=== PATIENT | female | born 1995 | race Caucasian/White ===

== ENCOUNTER → 2019-11-12 09:16 | Outpatient (CLI) | payer OTHER, SELFPAY ==
[2019-11-12 08:22] VITALS: BMI 45.6
[2019-11-12 10:50] LABS: HIV - WCH Non-Reactive (Nonreactive); Hepatitis C Antibody Non-Reactive (Nonreactive)
[2019-11-13 02:16] LABS: Rapid Plasmin Reagin (RPR) NONREACTIVE (NONREACTIVE)
[2019-11-15 03:07] LABS: Chlamydia By Nucleic Acid AMP Negative (Negative)
[2019-11-15 07:33] LABS: Gonococcus By Nucleic Acid AMP Negative (Negative)
[2019-11-17 14:00] LABS: HPV Reflexed? NOT INDICATED
== END ==
PROVIDERS: Referring Provider Obstetrics & Gynecology; Visit Provider Obstetrics & Gynecology
DX: Z12.4 Encounter for screening for malignant neoplasm of cervix (principal); Z11.3 Encounter for screening for infections with a predominantly sexual mode of transmission
CPT/HCPCS: 36415; 86592; 86703; 86803; 87491; 87591; 88175; G0145

== ENCOUNTER → 2023-09-11 | Outpatient (CLI) | payer BC, SELFPAY ==
[2023-09-13 20:09] LABS: Chlamydia By Nucleic Acid AMP Negative (Negative); Gonococcus By Nucleic Acid AMP Negative (Negative)
== END | disposition home or self-care (01) ==
LOC: LABSPEC 15:36
PROVIDERS: Referring Provider Advanced Practice Midwife; Visit Provider Advanced Practice Midwife
DX: O99.210 Obesity complicating pregnancy, unspecified trimester (principal); E66.01 Morbid (severe) obesity due to excess calories; Z68.42 Body mass index [BMI] 45.0-49.9, adult; Z3A.00 Weeks of gestation of pregnancy not specified
CPT/HCPCS: 87086; 87088; 87491; 87591

== ENCOUNTER → 2023-10-15 | Outpatient (CLI) | payer BC, SELFPAY ==
[2023-10-15 08:28] LABS: Absolute Lymphocyte Count 1.91 X10^3/uL (0.83-4.51); Basophil# 0.03 X10^3/uL; Basophil% 0.3 % (0-1); Eosinophil# 0.11 X10^3/uL; Eosinophils% 1.1 % (0-5); Hematocrit 38.5 % (37-47); Hemoglobin 12.4 g/dL (12.0-15.0); Lymphocyte # 1.91 X10^3/ul (0.83-4.51); Lymphocyte % 19.8 % (19-41); Mean Corp Hgb Conc 32.2 g/dL (32-36); Mean Corpuscular Hgb 27.7 pg (27.0-32.0); Mean Corpuscular Volume 86.1 fL (81-99); Mean Platelet Vol. 10.2 fl (6.2-12.0); Monocyte# 0.57 X10^3/uL; Monocyte% 5.9 % (0-10); NRBC Flagged by Analyzer 0 % (0-5); Neutrophil # 6.97 X10^3/uL (2.7-7.7); Neutrophil % 72.4 % (47-70); Platelet Count 260 K/mm3 (150-450); RBC Distribution Width CV 13.7 % (11.6-14.6); RBC Distribution Width SD 42.7 fl (35.1-43.9); Red Blood Count 4.47 M/mm3 (4.2-5.4); White Blood Count 9.6 K/mm3 (4.4-11.0)
[2023-10-15 09:16] LABS: Hemoglobin A1c 4.9 % (3.8-5.6)
[2023-10-15 09:48] LABS: HIV - WCH Non-Reactive (Nonreactive); Hepatitis B Surface Antigen Non-Reactive (Nonreactive); Hepatitis C Antibody Non-Reactive (Nonreactive); Rubella IgG Reactive (Nonreactive); Syphilis Antibodies Non-reactive
== END | disposition home or self-care (01) ==
PROVIDERS: Advanced Practice Midwife; Referring Provider Obstetrics & Gynecology; Visit Provider Obstetrics & Gynecology
DX: O99.210 Obesity complicating pregnancy, unspecified trimester (principal); Z31.430 Encounter of female for testing for genetic disease carrier status for procreative management; Z3A.00 Weeks of gestation of pregnancy not specified
CPT/HCPCS: 36415; 83036; 85025; 86703; 86762; 86780; 86803; 86850; 86900; 86901; 87340

== ENCOUNTER 2023-11-28 22:05 | Emergency (ER) | payer BC, SELFPAY ==
[2023-11-28 22:06] VITALS: BP 129/75; PULSE 100; RESP 18; TEMP 36.4; O2SAT 96
--- NOTE | 2023-11-28 22:13 | ED.RN ---
PT TOLD THIS RN SHE WAS TO GO TO OB FOR EVALUATION. RN CALLED OB CHARGE, WAS TOLD SHE NEEDED TO BE SEEN HERE FOR CP. PT HAVING UNRELIEVED HAs @ HOME, NOTIFIED DR. GARCIA
--- NOTE | 2023-11-28 22:41 | EX.ED.DYSGE1 ---
HPI History of Present Illness Chief Complaint: Chest Pain Narrative Narrative: 28-year-old female, G2, P0 at almost 21 weeks gestation, patient of Dr. Freida Becker, presents with bilateral flank pain that she has had all day today. She states that while she has had migraines, those of improved after wearing her hair down. She has had headache all day, and pain in her bilateral sides that have been bothering her all day. She denies any vaginal bleeding or pelvic pain or cramping. She has not taking anything for analgesia because she states she lost the safe medication list when she moved 2 weeks ago. She presents to the emergency department wanting to be checked out and to make sure that everything is okay. She states that her first was a chemical , and this is the first is that she has been along in her . No exacerbating or alleviating factors. No new leg swelling or other symptoms. [facility] Medical History Pre-conception counseling Encounter for Nexplanon removal Seasonal allergies Anxiety Home Medications ?Medication ?Instructions ?Recorded ?Last Taken ?Type PNV 178-FA 180 mcg-om3 35 mg-dha 1 tab PO DAILY 09/07/23 Unknown History 25 mg-epa 5 mg-fish oil chew tablet pyridoxine (vitamin B6) 25 mg 25 mg PO DAILY 09/07/23 Unknown History tablet Allergy/AdvReac Type Severity Reaction Status Date / Time coconut Allergy Severe Hives Verified 11/28/23 22:06 Family History Grandfather Heart disease Depression Lung cancer Diabetes Paternal Father Diabetes Heart disease Depression Grandmother Breast cancer Diabetes Paternal Mother Heart palpitations Surgical History History of tonsillectomy Social History adopted: No household members: spouse current occupational status: employed current occupation: [employer] pets and animals: Yes (Avoid litterbox) pets and animals: cat(s) history of recent travel: Yes ([place]) out of state: Yes out of country: No sexually active: Yes Smoking Status: Former smoker quit date: 10/20/20 Smokeless tobacco user: other alcohol intake: current alcohol intake frequency: holidays/special occasions only details: not while substance use type: does not use well-balanced diet: rarely or never caffeine: No eating out: 1-3 times/week during the past year weight has: remained stable what type of physical activity do you participate in: walking frequency: 1-2 times per week duration: 45-60 minutes/day darien/voodoo: Quaker seatbelt use: always do you feel safe at home: Yes additional social history: [employer]- [employer] of [employer] ROS ROS ED ROS Narrative Constitutional: No fever, no chills. HEENT: No sore throat. No neck pain. No loss of vision. No rhinorrhea. Cardiovascular: No chest pain. No palpitations. No pedal edema. Respiratory: No cough, no shortness of breath. Abdominal: No abdominal pain. No nausea. No vomiting. Bilateral flank pain. Genitourinary: No dysuria. No hematuria. No vaginal bleeding, no pelvic pain or pressure. Musculoskeletal: No myalgias. No arthralgias. Neurologic: Positive headaches. No dizziness. No lightheadedness. Skin: No rash. No change in color. Psychiatric: No depression. No anxiety. EXAM Physical Exam Narrative Exam Narrative: Afebrile. Vital signs noted. Nontoxic-appearing. PERRL, EOMI. Regular rate and rhythm. Lungs are clear to auscultation bilaterally. Abdomen soft nontender with normal active bowel sounds. No CVA tenderness to percussion bilaterally. Neurological examination nonfocal and nonlateralizing. No pitting edema bilaterally. Const Vital Signs: 11/28/23 22:06 11/28/23 23:05 11/29/23 00:00 Temperature 97.6 F L 98.2 F Temperature Source Temporal Pulse Rate 100 71 77 Respiratory Rate 18 16 16 Blood Pressure 129/75 H 120/66 124/64 H Blood Pressure Mean 93 84 84 Pulse Ox 96 98 98 Oxygen Delivery Method Room Air MDM MDM MDM Narrative Medical decision making narrative: Differential diagnosis includes but not limited to preeclampsia versus eclampsia versus migraine headache versus ureterolithiasis versus round ligament pain. I have low suspicion for threatened miscarriage as she is not having any vaginal bleeding or pelvic pressure. I do not feel she requires formal ultrasound. heart rate will be obtained. I will check her laboratory work to look for dehydration or electrolyte imbalance. Urinalysis will be obtained to check for microscopic blood and/or protein. She has a normal blood pressure of 129/75 here in the emergency department. There may be some anxiety component in relation to this as well. She was given Tylenol for analgesia. Although the nurse documented chest pain, she is not having chest pain, it is more bilateral flank pain. EKG was obtained and interpreted by myself independently as normal sinus rhythm at 91 bpm without ectopy or acute ST changes. No STEMI. I reviewed her laboratory work and she has slightly elevated white count of 11.4 which I think is nonspecific, hemoglobin of 11.4, platelet count normal at 249. CMP is grossly unremarkable. Urinalysis obtained and reviewed and is negative for infection, negative protein. Her blood pressure has normalized to 120 systolic. I doubt eclampsia/preeclampsia. I do not feel CT of the brain is indicated. heart rate obtained by RN and was reported to be 156 bpm. I do not feel she requires a formal ultrasound. Upon repeat examination at approximately midnight, she is feeling improved. Think she probably has more musculoskeletal flank pain as it is bilateral. I discussed patient with her TOOL AND EQUIPMENT RENTAL CLERK, Dr. Freida Becker, and it was not felt that she requires transfer to labor and delivery for further monitoring as she is not having any symptoms of premature contractions. She will continue [id number] Tylenol as needed for pain and follow-up with her TOOL AND EQUIPMENT RENTAL CLERK as an outpatient. Return instructions to the emergency department were reviewed. Disposition is discharged home in stable condition. History & Record Review Discussion w/independent historian: Patient Additional record(s) reviewed:: Prior labs Lab Data Attestation: I reviewed the patient's lab results. Labs: Laboratory Results - last 24 hr 11/28/23 11/28/23 22:44 23:28 WBC 11.4 H RBC 4.14 L Hgb 11.4 L Hct 35.5 L MCV 85.7 MCH 27.5 MCHC 32.1 RDW Std Deviation 43.2 RDW Coeff of Wilbur 13.9 Plt Count 249 MPV 10.6 Immature Gran % (Auto) 0.400 Neut % (Auto) 72.7 H Lymph % (Auto) 19.6 [place] % (Auto) 5.5 Eos % (Auto) 1.4 Baso % (Auto) 0.4 Absolute Neuts (auto) 8.3 H Absolute Lymphs (auto) 2.23 Nucleated RBC % 0 Sodium 136 Potassium 3.6 Chloride 106 Carbon Dioxide 25.0 Anion Gap 5 BUN 10 Creatinine 0.58 Est GFR (MDRD) Af Amer 157 Est GFR (MDRD) Non-Af 130 BUN/Creatinine Ratio 17.2 Glucose 99 Calcium 9.1 Total Bilirubin 0.30 AST 20 ALT 45 Alkaline Phosphatase 78 Total Protein 6.8 Albumin 3.0 L Globulin 3.8 Albumin/Globulin Ratio 0.8 L Urine Color Yellow Urine Clarity Clear Urine pH 6.0 [address] [place] 1.020 Urine Protein Negative Urine Glucose (UA) Normal Urine Ketones 5 H Urine Occult Blood Negative Urine Nitrite Negative Urine Bilirubin Negative Urine Urobilinogen Normal Ur Leukocyte Esterase 100 H Urine RBC 0 SEEN Urine WBC 0-5 SEEN Ur Squamous Epith Cells 10-25 SEEN Ur Transition Epith Cell 0-5 SEEN Amorphous Sediment 1+ Urine Bacteria 1+ Urine Mucus 0 SEEN Management Discussion w/another healthcare provider: Mold Worker (Dr. Freida Becker, TOOL AND EQUIPMENT RENTAL CLERK) Discharge Plan Triage Chief Complaint: Chest Pain ED Provider: Jack Zelaya Dx/Rx/DC Orders Clinical Impression: , Acute flank pain, Headache Instructions: ED Flank Pain, Uncertain Cause, ED Prescriptions: No Action PNV no.[id number] 180 mcg-35 mg- 25 mg-5 mg tablet,chewable 1 tab PO DAILY pyridoxine (vitamin B6) 25 mg tablet 25 mg PO DAILY Primary Care Provider: Care Physician,No Primary Referrals: Freida Becker MD [Med Staff - Active Staff] - 3-5 Days if not improving Care Physician,No Primary [Primary Care Provider] - Activity Restrictions/Additional Instructions: Continue Tylenol 650 mg orally every 6 hours by mouth for pain. Dose not to exceed 3000 mg in a 24-hour period. Return with vaginal bleeding, pelvic pressure or pain, new or worsening symptoms. Follow-up with your TOOL AND EQUIPMENT RENTAL CLERK within the next 3 to 5 days. Print Language: Singaporean Disposition Disposition: Home, Self Care
[2023-11-28] MEDS: 0.9% Normal Saline (1000mL) 1,000 ML 999 ML IV (22:51)
[2023-11-28 22:52] LABS: Absolute Lymphocyte Count 2.23 X10^3/uL (0.83-4.51); Absolute Neutrophil Count 8.3 X10^3/uL (2.0-7.7); Basophil# 0.04 X10^3/uL; Basophil% 0.4 % (0-1); Eosinophil# 0.16 X10^3/uL; Eosinophils% 1.4 % (0-5); Hematocrit 35.5 % (37-47); Hemoglobin 11.4 g/dL (12.0-15.0); Lymphocyte # 2.23 X10^3/ul (0.83-4.51); Lymphocyte % 19.6 % (19-41); Mean Corp Hgb Conc 32.1 g/dL (32-36); Mean Corpuscular Hgb 27.5 pg (27.0-32.0); Mean Corpuscular Volume 85.7 fL (81-99); Mean Platelet Vol. 10.6 fl (6.2-12.0); Monocyte# 0.63 X10^3/uL; Monocyte% 5.5 % (0-10); NRBC Flagged by Analyzer 0 % (0-5); Neutrophil # 8.29 X10^3/uL (2.7-7.7); Neutrophil % 72.7 % (47-70); Platelet Count 249 K/mm3 (150-450); RBC Distribution Width CV 13.9 % (11.6-14.6); RBC Distribution Width SD 43.2 fl (35.1-43.9); Red Blood Count 4.14 M/mm3 (4.2-5.4); White Blood Count 11.4 K/mm3 (4.4-11.0)
[2023-11-28] MEDS: Acetaminophen 325 MG Tablet 650 MG PO (22:52)
[2023-11-28 23:05] VITALS: BP 120/66; PULSE 71; RESP 16; O2SAT 98
[2023-11-28 23:08] LABS: ALB/GLOB Ratio 0.8 RATIO (0.9-2.4); AST(SGOT) 20 U/L (15-37); Alanine Aminotransfer ALT/SGPT 45 U/L (13-56); Alkaline Phosphatase 78 U/L (45-117); Anion Gap 5 (5-15); BUN 10 mg/dL (7-18); BUN/Creat Ratio 17.2 RATIO (10-20); Calcium,Total 9.1 mg/dL (8.5-10.1); Chloride 106 mmol/L (98-107); Creatinine, Serum 0.58 mg/dL (0.55-1.02); EST Glomerular Filtration Rate 130 mL/min (>60); Est Glom Filt Rate - Afr Amer 157 mL/min (>60); Globulin 3.8 g/dL (2.2-4.2); Glucose 99 mg/dL (74-106); Potassium 3.6 mmol/L (3.5-5.1); Protein, Total 6.8 g/dL (6.4-8.2); Sodium Level 136 mmol/L (136-145)
--- NOTE | 2023-11-28 23:09 | EKG12_ITS ---
Test Reason : CP Blood Pressure : / mmHG Vent. Rate : 091 BPM Atrial Rate : 091 BPM P-R Int : 154 ms QRS Dur : 092 ms QT Int : 380 ms P-R-T Axes : 039 036 022 degrees QTc Int : 467 ms Normal sinus rhythm Normal ECG Confirmed by ELIZABETH GARZA, NIDIA ([id number]), health editor SAUL GAN ([id number]) on 11/29/2023 1:53:53 PM Referred By: Confirmed By:NIDIA JOHNSON MD
[2023-11-28 23:37] LABS: Mucous, Urine 0 SEEN /hpf (<or=2+); Red Blood Cells-Urine 0 SEEN /hpf (0-5)
[2023-11-28 23:40] LABS: Color, Urine Yellow (Yellow); Glucose, Dipstick Normal (Normal); Ketone-Dipstick 5 mg/dl (Negative); Leukocyte Esterase-Dipstick 100 /ul (Negative); Nitrite-Dipstick Negative (Negative); Occult Blood-Urine Negative /ul (Negative); Protein-Dipstick Negative (Negative); Urine Bilirubin Dipstick Negative (Negative); Urine Clarity Clear (Clear); Urine Urobilinogen Normal (Normal)
[2023-11-28 23:52] LABS: Bacteria 1+ /hpf (None Seen); Squamous Epithelial Cells - UA 10-25 SEEN /hpf (5-10); Transitional Epithelial - Ur 0-5 SEEN /hpf (0-5); White Blood Cells 0-5 SEEN /hpf (0-5)
[2023-11-28 23:53] LABS: Amorphous Sediment 1+
[2023-11-29] VITALS: BP 124/64; PULSE 77; RESP 16; TEMP 36.8; O2SAT 98
== END 2023-11-29 00:15 | disposition home or self-care (01) ==
PROVIDERS: Emergency Provider Emergency Medicine; Visit Provider Emergency Medicine
DX: O26.892 Other specified pregnancy related conditions, second trimester (principal); R51.9 Headache, unspecified; R10.9 Unspecified abdominal pain; O99.332 Smoking (tobacco) complicating pregnancy, second trimester; O99.891 Other specified diseases and conditions complicating pregnancy; Z3A.20 20 weeks gestation of pregnancy; F17.200 Nicotine dependence, unspecified, uncomplicated
CPT/HCPCS: 80053; 81001; 85025; 93005; 96360; 99283

== ENCOUNTER → 2024-01-18 | Outpatient (CLI) | payer BC, SELFPAY ==
--- OUTSIDE RECORDS SUMMARY | 2024-01-18 13:56 | XMS RPT_ITS | CCD ---
Author Organization [facility] Care Team Providers Care Administrative Dietitian Name Role Phone ALEXIS MCKNIGHT Referring Unavailab le ABDULLAHI PRIMARY CAREMD Primary Care Unavailable AMAYA GALE Attending Unavailable ALEXIS MCKNIGHT Referring Unavailab LIAN Cannon Attending Unavailable NO PRIMARY CARE, Primary Care Unavailable ALEXIS MCKNIGHT Referring Unavailab ALEXIA Whitney Attending Unavailable NO PRIMARY CAREMD Primary Care Unavailable Encounters Encounter Date Encounter Type Care Provider Facility Start: 01-08-2024 End: 01-08-2024 ambulatory ALEXIS MCKNIGHT [facility] Start: 12-11-2023 End: 12-11-2023 ambulatory ALEXIS MCKNIGHT [facility] Start: 11-20-2023 End: 11-20-2023 ambulatory ALEXIS [facility] Payers Date Payer Category Payer Unknown [id number] [id number] 1993 Unknown [id number] [id number]. [id number] 1993 Unknown [id number] [id number]. [id number] Unknown [id number] Summary Purpose Family History No Family History Records Found Advance Directives No Advanced Directives Records Found Additional Source Comments INFORMATION SOURCE (unrecogn ized section and content) DATE CREATED AUTHOR 01/10/2024 [facility] FOR RECORDS PERTAINING TO PATIENTS WHO ARE OR HAVE BEEN ENROLLED IN A CHEMICAL DEPENDENCY/SUBSTANCEABUSE PROGRAM, SOME INFORMATION MAY BE OMITTED. This clinical summary was aggregated from multiple sources. Caution should be exercised in using it in the provision of clinical care. This summary normalizes information from multiple sources, and as a consequence, information in this document may materially change the coding, format and clinical context of patient data. In addition, data may be omitted in some cases. CLINICAL DECISIONS SHOULD BE BASED ON THE PRIMARY CLINICAL RECORDS. [facility] [employer] [facility]. provides no warranty or guarantee of the accuracy or completeness of information in this document.
[2024-01-18 15:09] LABS: Absolute Lymphocyte Count 1.76 X10^3/uL (0.83-4.51); Absolute Neutrophil Count 8.3 X10^3/uL (2.0-7.7); Basophil# 0.05 X10^3/uL; Basophil% 0.5 % (0-1); Eosinophil# 0.05 X10^3/uL; Eosinophils% 0.5 % (0-5); Hematocrit 36.2 % (37-47); Hemoglobin 11.8 g/dL (12.0-15.0); Lymphocyte # 1.76 X10^3/ul (0.83-4.51); Lymphocyte % 16.1 % (19-41); Mean Corp Hgb Conc 32.6 g/dL (32-36); Mean Corpuscular Hgb 28.6 pg (27.0-32.0); Mean Corpuscular Volume 87.7 fL (81-99); Mean Platelet Vol. 11.2 fl (6.2-12.0); Monocyte# 0.66 X10^3/uL; NRBC Flagged by Analyzer 0 % (0-5); Neutrophil % 75.9 % (47-70); Platelet Count 279 K/mm3 (150-450); RBC Distribution Width CV 14.1 % (11.6-14.6); RBC Distribution Width SD 44.7 fl (35.1-43.9); Red Blood Count 4.13 M/mm3 (4.2-5.4); White Blood Count 10.9 K/mm3 (4.4-11.0)
[2024-01-18 15:27] LABS: Glucose Challenge Gest 1H 50g 97 mg/dL (70-140)
[2024-01-18 15:47] LABS: HIV - WCH Non-Reactive (Nonreactive); Syphilis Antibodies Non-reactive
== END | disposition home or self-care (01) ==
LOC: WOBLAB 13:27
PROVIDERS: Referring Provider Obstetrics & Gynecology; Visit Provider Obstetrics & Gynecology
DX: Z13.1 Encounter for screening for diabetes mellitus (principal)
CPT/HCPCS: 36415; 82950; 85025; 86703; 86780

== ENCOUNTER → 2024-02-15 | Outpatient (CLI) | payer BC, SELFPAY ==
--- NOTE | 2024-02-15 13:07 | US_ITS ---
EXAM: US SECOND OR THIRD TRIMESTER , TRANSABDOMINAL CLINICAL INDICATION: growth -- 32 weeks TECHNIQUE: Transabdominal obstetrical ultrasound of the maternal pelvis and a second or third trimester with image documentation. COMPARISON: No relevant prior studies available. FINDINGS: FETUS: There is an intrauterine gestation. HEART RATE: heart rate is 162 bpm. PRESENTATION: The fetus is in a cephalic position. PLACENTA: The placenta is posterior. No placenta previa. No abruption. AMNIOTIC FLUID: BRYANT is 19.1 cm. ANATOMY: Intracranial/face anatomy not seen. Spinal anatomy not seen. Abdominal anatomy not seen. Extremities not seen. Four-chamber heart not seen. Umbilical cord not seen. BIOMETRICS GESTATIONAL AGE: Gestational age 32 weeks 0 days. LING: LING 04/11/2024. EFW: Estimated weight 2033 g, 62nd percentile. BPD: Biparietal diameter 8.2 cm age 33 weeks 0 days, 73rd percentile. HC: Head circumference 30.7 cm age 34 weeks 1 day, 72nd percentile. AC: Abdominal circumference 28.7 cm age 32 weeks 5 days, 71st percentile. FL: Femur length 6.2 cm age 32 weeks 1 day, 39th percentile. MATERNAL: UTERUS: Unremarkable. No myometrial mass. CERVIX: Unremarkable as visualized. The cervix is closed. ADNEXA: Unremarkable. No adnexal masses. FREE FLUID: None. US/OB Limited With Biometrics IMPRESSION: Intrauterine gestation with an average ultrasound age is 33 weeks 3 days and ultrasound estimated due date of 04/01/2024. heart rate is 162 bpm. Electronically Signed: Lino Mario MD at 0:05 EST ,
== END | disposition home or self-care (01) ==
LOC: US 13:02
PROVIDERS: Referring Provider Obstetrics & Gynecology; Visit Provider Obstetrics & Gynecology
DX: E66.01 Morbid (severe) obesity due to excess calories (principal); Z68.42 Body mass index [BMI] 45.0-49.9, adult
CPT/HCPCS: 76816

== ENCOUNTER → 2024-03-14 | Outpatient (CLI) | payer BC, SELFPAY ==
--- NOTE | 2024-03-14 16:34 | US_ITS ---
STUDY: OBSTETRICAL ULTRASOUND - BIOPHYSICAL PROFILE REASON FOR EXAM: Female, 28 years old wellbeing LMP: 07/06/2023 PRIOR ULTRASOUND: 02/15/2024 TECHNIQUE: Transabdominal TECHNICAL QUALITY: Adequate. FINDINGS: There is a single intrauterine fetus. The fetus is in a cephalic presentation. There is demonstrated cardiac activity with a heart rate of 151 bpm. There is a normal amniotic fluid volume. The largest amniotic fluid pocket measures 4.5 cm. The amniotic fluid index (BRYANT) is 15.2 cm. The placenta is posterior in location and is not low lying. There are Grade 2 placental changes. Age by LMP: 36 weeks, 0 days age by prior US: 36 weeks, 6 days. LING by prior US: 04/05/2024. Gender: Female BIOPHYSICAL PROFILE: Breathing Movements (FBM): 2 Gross Body Movements (GBM): 2 Tone (FT): 2 Amniotic Fluid Volume (AFV): 2 TOTAL SCORE: 8 8 IMPRESSION: Normal biophysical profile of 10/31. Electronically Signed: Rei Palomino MD at 11:43 EST , STUDY: SECOND AND THIRD TRIMESTER OBSTETRICAL ULTRASOUND - LIMITED REASON FOR EXAM: Female, 28 years old wellbeing LMP: 07/06/2023 PRIOR ULTRASOUND: 02/15/2024 TECHNIQUE: Transabdominal TECHNICAL QUALITY: Adequate. FINDINGS: There is a single intrauterine fetus. The fetus is in a cephalic presentation. There is demonstrated cardiac activity with a heart rate of 151 bpm. There is a normal amniotic fluid volume. The largest amniotic fluid pocket measures 4.5 cm. The amniotic fluid index (BRYANT) is 15.2 cm. The placenta is posterior in location and is not low lying. There are Grade 2 placental changes. The cervix was not visualized BIOMETRY: BPD: 9.3 cm: 38 weeks, 0 days HC: 34.2 cm: 39 weeks, 3 days AC: 30.7 cm: 34 weeks, 5 days FL: 6.6 cm: 34 weeks, 0 days age by current US: 36 weeks, 6 days. LING by current US: 04/05/2024. Estimated weight: 2602 grams, +/- 390 grams, 29 percentile. Gender: Female US/Biophysical Prof W/O Non Stres IMPRESSION: Single live intrauterine at 36 weeks, 3 days by current ultrasound with LING of 04/05/2024. Heart rate at 151 bpm. No suspicious sonographic findings, normal growth noted since the previous study Electronically Signed: Rei Palomino MD at 11:45 EST ,
== END | disposition home or self-care (01) ==
LOC: US 16:33
PROVIDERS: Referring Provider Obstetrics & Gynecology; Visit Provider Obstetrics & Gynecology
DX: E66.01 Morbid (severe) obesity due to excess calories (principal); Z68.42 Body mass index [BMI] 45.0-49.9, adult
CPT/HCPCS: 76819; 87081

== ENCOUNTER → 2024-03-21 | Outpatient (CLI) | payer BC, SELFPAY ==
--- NOTE | 2024-03-21 16:35 | US_ITS ---
STUDY: OBSTETRICAL ULTRASOUND - BIOPHYSICAL PROFILE REASON FOR EXAM: Female, 28 years old wellbeing LMP: 07/06/2023 PRIOR ULTRASOUND: 03/14/2024 TECHNIQUE: Transabdominal TECHNICAL QUALITY: Adequate. FINDINGS: There is a single intrauterine fetus. The fetus is in a cephalic presentation. There is demonstrated cardiac activity with a heart rate of 145 bpm. There is a normal amniotic fluid volume. The largest amniotic fluid pocket measures 5.4 cm. The amniotic fluid index (BRYANT) is 14.7 cm. The placenta is posterior in location and is not low lying. There are Grade 2 placental changes. Age by LMP: 37 weeks, 0 days. LING by LMP: 04/11/2024. BIOPHYSICAL PROFILE: Breathing Movements (FBM): 2 Gross Body Movements (GBM): 2 Tone (FT): 2 Amniotic Fluid Volume (AFV): 2 TOTAL SCORE: / US/Biophysical Prof W/O Non Stres IMPRESSION: Normal biophysical profile of 10/31. Electronically Signed: Brian Jordan MD at 18:16 EST ,
== END | disposition home or self-care (01) ==
LOC: US 16:34
PROVIDERS: PCP Internal Medicine; Referring Provider Nurse Practitioner Women's Health; Visit Provider Nurse Practitioner Women's Health
DX: O99.210 Obesity complicating pregnancy, unspecified trimester (principal); E66.01 Morbid (severe) obesity due to excess calories; Z3A.00 Weeks of gestation of pregnancy not specified
CPT/HCPCS: 76819

== ENCOUNTER → 2024-03-28 | Outpatient (CLI) | payer BC, SELFPAY ==
--- NOTE | 2024-03-28 15:31 | US_ITS ---
EXAM: US , LIMITED CLINICAL INDICATION: growth -- 36 weeks TECHNIQUE: Real-time limited ultrasound of the maternal uterus with image documentation. COMPARISON: No relevant prior studies available. FINDINGS: FETUS: There is an intrauterine gestation. GESTATIONAL AGE: Gestational age 38 weeks 0 days. LING: LING 04/11/2024. EFW: Estimated weight 3329 g. BPD: Biparietal diameter 9.5 cm age 38 weeks 5 days, 88th percentile. HC: Head circumference 34.0 cm age 39 weeks 1 day, 57th percentile. AC: Abdominal circumference 34.2 cm age 38 weeks 0 days, 70th percentile. FL: Femur length 7.1 cm age 36 weeks 1 day, 13th percentile. POSITION: The fetus is in the cephalic position. HEART RATE: The heart rate is 148 bpm. PLACENTA: The placenta is posterior. AMNIOTIC FLUID: BRYANT measures 11.5 cm. IMPRESSION: Intrauterine gestation with an average ultrasound age of 38 weeks 1 day and ultrasound estimated due date of 04/10/2024. heart rate is 148 bpm. Electronically Signed: Lino Mario MD at 0:05 EST , EXAM: US BIOPHYSICAL PROFILE WITHOUT NON-STRESS TESTING CLINICAL INDICATION: growth -- 36 weeks TECHNIQUE: Real-time ultrasound of the maternal pelvis for biophysical profile evaluation with image documentation. COMPARISON: No relevant prior studies available. FINDINGS: BREATHING MOVEMENTS: Present. Score 2/2. GROSS BODY MOVEMENTS: Present. Score 2/2. TONE: Present. Score 2/2. QUALITATIVE AMNIOTIC FLUID VOLUME: BRYANT is 11.5 cm. HEART RATE: heart rate 148 bpm. PRESENTATION: There is an intrauterine gestation in cephalic position. OTHER FINDINGS: Biophysical profile score is 8/8. US/OB Limited With Biometrics IMPRESSION: Intrauterine gestation with a biophysical profile score of 8/8. heart rate is 148 bpm. Electronically Signed: Lino Mario MD at 0:06 EST ,
== END | disposition home or self-care (01) ==
LOC: OPUS 15:29
PROVIDERS: PCP Internal Medicine; Referring Provider Nurse Practitioner Women's Health; Visit Provider Nurse Practitioner Women's Health
DX: E66.01 Morbid (severe) obesity due to excess calories (principal); Z68.42 Body mass index [BMI] 45.0-49.9, adult
CPT/HCPCS: 76816; 76819

== ENCOUNTER 2024-04-02 17:35 | Outpatient (CLI) | payer BC, SELFPAY ==
[2024-04-02 18:07] VITALS: BP 124/80; PULSE 75
--- NOTE | 2024-04-06 12:54 | OB.TRI.PN ---
Progress Notes Date of Service: 04/06/24 Progress Note: Patient presents for triage evaluation secondary to contractions FHT: 155 Moderate variability reactive no decelerations category I tracing [place]: irregular Contractions Assessment and plan: false labor contracitons decreaisng now Reactive NST, reassuring maternal and status patient discharged to home to follow-up as scheudled. See problem list details for additional plan information. Charges/Coding Procedures Urinary/Genital [id number]: [id number] non-stress test Interp Assessment & Plan (1) False labor:
== END 2024-04-02 19:00 | disposition home or self-care (01) ==
LOC: WPOUT 17:41 → WP 17:41
PROVIDERS: PCP Internal Medicine; Referring Provider Obstetrics & Gynecology; Visit Provider Obstetrics & Gynecology
DX: O47.9 False labor, unspecified (principal); Z3A.00 Weeks of gestation of pregnancy not specified
CPT/HCPCS: 59025; 59050; 99221; G0378

== ENCOUNTER → 2024-04-04 | Outpatient (CLI) | payer BC, SELFPAY ==
--- NOTE | 2024-04-04 15:19 | US_ITS ---
INDICATION: wellbeing EXAMINATION: Ultrasound US Biophysical Profile W/O Nonst TECHNIQUE: Transabdominal pelvic ultrasound was performed. COMPARISON: Prior study dated: 03/28/2024 LMP: 07/06/2023 Beta-hCG: Unknown. Provided EGA: None. : INTRAUTERINE GESTATION(s): Single. HEART MOTION is 155 bpm. AMNIOTIC FLUID INDEX (BRYANT): 11.3 cm, largest pocket of fluid measures 4.9 cm. BIOPHYSICAL PROFILE (BPP): 10/31 -- Breathin/2. -- Movement: 2/2. -- Tone: 2/2. --BRYANT: 2/2. PRESENTATION: Cephalic PLACENTA: Posterior. There is no placenta previa or abruption. CERVIX: Not visualized. MATERNAL OVARIES: No adnexal masses. FREE FLUID: None. US/Biophysical Prof W/O Non Stres IMPRESSION: Normal biophysical profile with score of 8 out of 8. Electronically Signed: Kiko Thorne MD at 16:01 EST ,
== END | disposition home or self-care (01) ==
LOC: OPUS 15:17
PROVIDERS: PCP Internal Medicine; Referring Provider Nurse Practitioner Women's Health; Visit Provider Nurse Practitioner Women's Health
DX: E66.01 Morbid (severe) obesity due to excess calories (principal); Z68.42 Body mass index [BMI] 45.0-49.9, adult
CPT/HCPCS: 76819

== ENCOUNTER → 2024-04-11 | Outpatient (CLI) | payer BC, SELFPAY ==
--- NOTE | 2024-04-11 15:30 | US_ITS ---
EXAM: US BIOPHYSICAL PROFILE WITHOUT NON-STRESS TESTING CLINICAL INDICATION: wellbeing TECHNIQUE: Real-time ultrasound of the maternal pelvis for biophysical profile evaluation with image documentation. COMPARISON: No relevant prior studies available. FINDINGS: BREATHING MOVEMENTS: Present. Score 2/2. GROSS BODY MOVEMENTS: Present. Score 2/2. TONE: Present. Score 2/2. QUALITATIVE AMNIOTIC FLUID VOLUME: BRYANT is 14.3 cm. FETUS: There is an intrauterine gestation. HEART RATE: heart rate is 158 bpm. PRESENTATION: The fetus is in cephalic position. PLACENTA: The placenta is posterior. OTHER FINDINGS: Biophysical profile score is 8/8. US/Biophysical Prof W/O Non Stres IMPRESSION: Biophysical profile score of 8/8. heart rate is 158 bpm. Electronically Signed: Lino Mario MD at 0:08 EST ,
== END | disposition home or self-care (01) ==
LOC: OPUS 15:29
PROVIDERS: PCP Internal Medicine; Referring Provider Nurse Practitioner Women's Health; Visit Provider Nurse Practitioner Women's Health
DX: E66.01 Morbid (severe) obesity due to excess calories (principal); Z68.42 Body mass index [BMI] 45.0-49.9, adult
CPT/HCPCS: 76819

== ENCOUNTER 2024-04-18 19:10 | Inpatient (IN) | payer BC, SELFPAY ==
[2024-04-18 19:36] VITALS: PULSE 93; RESP 16; TEMP 36.6; O2SAT 99
[2024-04-18 19:37] VITALS: BMI 52.4
[2024-04-18 19:38] VITALS: BP 167/90; PULSE 92
[2024-04-18 19:56] VITALS: BP 140/90; PULSE 81
--- NOTE | 2024-04-18 20:43 | HP.PCM.OB_ITS ---
HPI - General General Date of Admission: 04/18/24 HPI Narrative JOEL HINTON, is a 28 F who presents at 41 weeks for induction of labor for postdates. denies walker/visual changes or ruq pain. elevated bp x 2 on admission. Maternal Data Information LING Calculator Estimated Delivery Date Method Current WG Current Estimate 04/11/24 LMP (Certain) 41w 0d PFSH PFSH Medical History (Updated 04/18/24 @ 20:45 by Agueda Leung CNM) Superficial varicosities Seasonal allergies Pre-conception counseling Encounter for Nexplanon removal Anxiety Home Medications ?Medication ?Instructions ?Recorded ?Last Taken ?Type PNV 178-FA 180 mcg-om3 35 mg-dha 1 tab PO DAILY 09/07/23 04/18/24 07:30 History 25 mg-epa 5 mg-fish oil chew tablet pyridoxine (vitamin B6) 25 mg 25 mg PO DAILY 09/07/23 Unknown History tablet acetaminophen 325 mg tablet 325 mg PO Q6H PRN 12/04/23 Unknown History (Tylenol) Allergy/AdvReac Type Severity Reaction Status Date / Time coconut Allergy Severe Hives Verified 04/15/24 13:43 Family History Grandfather Heart disease Depression Lung cancer Diabetes Paternal Father Diabetes Heart disease Depression Grandmother Breast cancer Diabetes Paternal Mother Heart palpitations Surgical History History of tonsillectomy Social History adopted: No household members: spouse current occupational status: employed current occupation: [employer] pets and animals: Yes (Avoid litterbox) pets and animals: cat(s) history of recent travel: Yes ([place]) out of state: Yes out of country: No sexually active: Yes Smoking Status: Never smoker Smokeless tobacco user: other alcohol intake: current alcohol intake frequency: holidays/special occasions only details: not while substance use type: does not use well-balanced diet: rarely or never caffeine: No eating out: 1-3 times/week during the past year weight has: remained stable what type of physical activity do you participate in: walking frequency: 1-2 times per week duration: 45-60 minutes/day darien/presybeterian: Denominational seatbelt use: always do you feel safe at home: Yes additional social history: Moises- [employer] History 2 Elective abortions Hx Para 0 Spontaneous abortions 1 Hx # Term Pregnancies Ectopic pregnancies Hx # Pregnancies Multiple births # of living children 0 Past Pregnancies Del. Date Name GA/Weeks Outcome Route Bth Weight Infant Gen Labor Lgth Anesthesia Del Locatn Provider FOB Unknown 03/02/23 chemical 4 spontaneous Visit Details Expected Delivery Route/Plan Labor Preferences- CB/BF classes: yes labor support person: Moises labor intervention preferences: [] pain management options preferred: epidural cut cord/dad catch: maybe : yes PP control planned: discussed discussed possible routes of delivery and associated risks: [] special requests: [] Plans Covid status: [] Flu vaccine: given Tdap vaccine: given Rhogam: na LARC form signed: yes Problem list reviewed and updated with the most current plan of care details and appropriate orders placed. Relevant counseling for the gestational age provided. Continue routine care and follow up unless otherwise noted in visit notes/problem list details OB Flowsheet Initial Weight: Not Recorded Date -?-?-?-?-?-?-?-?-?-?-?-?- EGA Weight BP Urine Prot -?-?-?-?-?-?-?-?-?-?-?-?- Glucose FHR FuHt Pres Dilation -?-?-?-?-?-?-?-?-?-?-?-?- Effaced St Visit Note 09/11/23 -?-?-?-?-?-?-?-?-?-?-?-?- 9w 4d 318 lb 318 lb 112/73 -?-?-?-?-?-?-?-?-?-?-?-?- 174 -?-?-?-?-?-?-?-?-?-?-?-?- KW- CRL cons wit h dates. To get NIPT and carrier order at next visit. 10/12/23 -?-?-?-?-?-?-?-?-?-?-?-?- 14w 0d 316 lb 6 oz 122/76 Nega tive -?-?-?-?-?-?-?-?-?-?-?-?- Negative 153 -?-?-?-?-?-?-?--?-?-?-?-?- JV- no complaint s today. needs work restriction letter. Needs box kit for NIPT and carrier testing. 11/09/23 -?-?-?-?-?-?-?-?-?-?-?-?- 18w 0d 315 lb 2 oz 117/78 Nega tive -?-?-?-?-?-?-?-?-?-?-?-?- Negative 141 -?-?-?-?-?-?-?-?-?-?-?-?- KW- no vb/crampi ng.US scheduled. 12/04/23 -?-?-?-?-?-?-?-?-?-?-?-?- 21w 4d 313 lb 2 oz 107/71 Nega tive -?-?-?-?-?-?-?-?-?-?-?-?- Negative 150 -?-?-?-?-?-?-?-?-?-?-?-?- Kw- no vb/lof/ct x. good fm. f/u US for additional views. chiropractor for back pain. doing better with anxiety. many questions today 01/04/24 -?-?-?-?-?-?-?-?-?-?-?-?- 26w 0d 313 lb 73/49 -?-?-?-?-?-?-?-?-?-?-?-?- 155 27 -?-?-?-?-?-?-?-?-?-?-?-?- JV- plan for 32 week growth scan for obesity. no lof, vaginal bleeding, or dec fm. 01/18/24 -?-?-?-?-?-?-?-?-?-?-?-?- 28w 0d 315 lb 114/78 Negative -?-?-?-?-?-?-?-?-?-?-?-?- Negative 161 30 -?-?-?-?-?-?-?-?-?-?-?-?- JV- tdap and flu today. also did 28 week labs that are pending. no complaints today. 01/29/24 -?-?-?-?-?-?-?-?-?-?-?-?- 29w 4d 317 lb 112/79 Negative -?-?-?-?-?-?-?-?-?-?-?-?- Negative 140 31 -?-?-?-?-?-?-?-?-?-?-?-?- KW- no vb/lof/ct x. good fm. has babymoon this weekend 02/12/24 -?-?-?-?-?-?-?-?-?-?-?-?- 31w 4d 322 lb 2 oz 116/82 Nega tive -?-?-?-?-?-?-?-?-?-?-?-?- Negative 145 32 -?-?-?-?-?-?-?-?-?-?-?-?- MH-No VB, LOF. G ood FM. Larc. Denies concerns 02/29/24 -?-?-?-?-?-?-?-?-?-?-?-?- 34w 0d 320 lb 2 oz 145/79 126/85 Trace -?-?-?-?-?-?-?-?-?-?-?-?- Negative 150 34 -?-?-?-?-?-?-?-?-?-?-?-?- LC- no vb/ctx/lo f. good fm. 03/14/24 -?-?-?-?-?-?-?-?-?-?-?-?- 36w 0d 331 lb 6 oz 120/86 Nega tive -?-?-?-?-?-?-?-?-?-?-?-?- Negative 140 37 Cephalic 0 -?-?-?-?-?-?-?-?-?-?-?-?- SM- no vb lof go od fm irregular ctx gbs today 03/18/24 -?-?-?-?-?-?-?-?-?-?-?-?- 36w 4d 327 lb 6 oz 121/87 Nega tive -?-?-?-?-?-?-?-?-?-?-?-?- Negative 150 39 Cephalic -?-?-?-?-?-?-?-?-?-?-?-?- - no vb lof go od fm no regular ctx 03/25/24 -?-?-?-?-?-?-?-?-?-?-?-?- 37w 4d 324 lb 4 oz 115/72 Nega tive -?-?-?-?-?-?-?-?-?-?-?-?- Negative 147 38 Cephalic 0 -?-?-?-?-?-?-?-?-?-?-?-?- KW- no vb/lof/ct x. good fm. does feel that baby dropped. has BPP on sunday. will try to get growth US at same time. 04/01/24 -?-?-?-?-?-?-?-?-?-?-?-?- 38w 4d 333 lb 6 oz 134/84 Nega tive -?-?-?-?-?-?-?-?-?-?-?-?- Negative 154 39 Cephalic 0 -?-?-?-?-?-?-?-?-?-?-?-?- -No VB, LOF or reg CTX. Good FM. 04/08/24 -?-?-?-?-?-?-?-?-?-?-?-?- 39w 4d 335 lb 118/89 Negative -?-?-?-?-?-?-?-?-?-?-?-?- Negative 140 40 Cephalic 0 .5 -?-?-?-?-?-?-?-?-?-?-?-?- - thinks she l ost her mucous plug no vb regular movement 04/15/24 -?-?-?-?-?-?-?-?-?-?-?-?- 40w 4d 341 lb 6 oz 134/88 Nega tive -?-?-?-?-?-?-?-?-?-?-?-?- Negative 145 41 Cephalic 0 .5 -?-?-?-?-?-?-?-?-?-?-?-?- JV- bedside scan to confirm cephalic. IOL set up for 41 weeks NST FHR Rate Baby A Baseline: 150 Variability:: Moderate Accelerations:: 15 x 15 Decelerations:: None NST Reactive:: Yes FHR Category:: Category I ROS Cardiovascular Cardiovascular: Denies abdominal pain, chest pain, diaphoresis or dyspnea Respiratory/Chest Respiratory/Chest: Denies change in mental status, chest congestion, chest tightness, cough, shortness of breath at rest, shortness of breath with exertion, breast mass, breast pain, breast skin changes, breast swelling, change in breast shape or nipple discharge Genitourinary Genitourinary: Reports change in urinary stream Musculoskeletal Musculoskeletal: Reports none Integumentary Integumentary: Reports none Neurologic Neurologic: Reports none Psychiatric Psychiatric: Reports none Endocrine Endocrinology: Reports none Hematologic/Lymphatic Hematologic/Lymphatic: Reports none Allergic/Immunologic Allergic/Immunologic: Reports none Vital Signs Vital Signs Vital Signs: 04/18/24 19:36 04/18/24 19:36 04/18/24 19:36 Temperature Temperature Source Temporal Pulse Rate 93 Respiratory Rate 16 Blood Pressure BP Systolic BP Diastolic Pulse Ox 04/18/24 19:36 04/18/24 19:36 04/18/24 19:38 Temperature 97.8 F Temperature Source Pulse Rate Respiratory Rate Blood Pressure 167/90 H BP Systolic 167 BP Diastolic 90 Pulse Ox 99 04/18/24 19:38 04/18/24 19:56 04/18/24 19:56 Temperature Temperature Source Pulse Rate 92 81 Respiratory Rate Blood Pressure 140/90 H BP Systolic 140 BP Diastolic 90 Pulse Ox Weight Weight: 344 lb 8 oz Body Mass Index (BMI) 52.4 Physical Exam Const alert, oriented x3 and no apparent distress General Appearance: cooperative, comfortable and well kempt Orientation / Consciousness: awake and oriented to person Exam Limitations: no limitations HEENT normocephalic Neck full ROM Chest inspection of chest normal Resp normal respiratory effort, normal air movement and no retractions Effort and Inspection: able to speak in complete sentences and symmetric chest movement Cardio regular rate Peripheral Pulses: pulses 2+ throughout GI normal to inspection, nondistended, normoactive bowel sounds Inspection: gravid no CVA tenderness and appearance of the vagina normal External Female Exam: normal appearance of the urethra; Negative for external lesion OB / External & Speculum: external exam normal Manual OB Exam: estimated gestational size appropriate and presentation cephalic Uterus Palpation: Negative for uterus tender Extremity normal to inspection Skin no rashes or lesions noted Neuro deep tendon reflexes 2+ bilaterally and gait normal Motor Exam: strength 5/5 throughout and clonus absent Psych Activity / Motor Behavior: appropriate eye contact Speech: normal speech Labs Labs Labs: Blood Type O POSITIVE Antibody Screen NEGATIVE Hct 36.2 % (37-47) L Hgb 11.8 g/dL (12.0-15.0) L Obstetrics Ultrasound Syphilis Total Ab Non-reactive Rubella IgG Antibody Reactive (Nonreactive) Hep Bs Antigen Non-Reactive (Nonreactive) Hepatitis C Antibody Non-Reactive (Nonreactive) Chlamydia DNA (MIN) Negative (Negative) N.gonorrhoeae DNA (MIN) Negative (Negative) HIV 1&2 Antibody Non-Reactive (Nonreactive) Glucose 1 Hr 50 gm 97 mg/dL (70-140) Assessment & Plan (1) Encounter for induction of labor: COMMENT: postdates induction. cytotec (2) Morbid obesity with BMI of 45.0-49.9, adult: COMMENT: BMI 48 at NOB wkly BPP at 36 wk and growth US at 32 and 36wk (3) Supervision of high-risk : QUALIFIERS: Trimester: third trimester Qualified Code(s): O09.93 - Supervision of high risk , unspecified, third trimester COMMENT: PRR , LING 04/11/24, Moises (4) : QUALIFIERS: Weeks of gestation: 40 weeks Qualified Code(s): Z3A.40 - 40 weeks gestation of COMMENT: GBS neg, NIPT low risk, discussed carrier testing (5) Elevated blood pressure reading: COMMENT: pre-e labs sent with admission labs. noah PLAN: Plan Patient presents IOL, plan management for with cytotec/pitocin/AROM. Pain management: plans epidural. GBS negative. Management of any complications: none I have reviewed the [facility] and made any clinically relevant updates. Dr. wright updated on admission, exam and poc. available as needed.
[2024-04-18] MEDS: miSOPROStol 25 MCG TABLET VAGINAL (21:13)
[2024-04-18 21:15] LABS: Mucous, Urine 0 SEEN /hpf (<or=2+)
[2024-04-18 21:19] LABS: Absolute Lymphocyte Count 2.25 X10^3/uL (0.83-4.51); Absolute Neutrophil Count 8.3 X10^3/uL (2.0-7.7); Basophil# 0.05 X10^3/uL; Basophil% 0.4 % (0-1); Eosinophil# 0.08 X10^3/uL; Eosinophils% 0.7 % (0-5); Hematocrit 36.8 % (37-47); Hemoglobin 12.2 g/dL (12.0-15.0); Lymphocyte # 2.25 X10^3/ul (0.83-4.51); Lymphocyte % 19.1 % (19-41); Mean Corp Hgb Conc 33.2 g/dL (32-36); Mean Corpuscular Hgb 28.1 pg (27.0-32.0); Mean Corpuscular Volume 84.8 fL (81-99); Mean Platelet Vol. 10.6 fl (6.2-12.0); Monocyte% 8.5 % (0-10); NRBC Flagged by Analyzer 0 % (0-5); Neutrophil # 8.32 X10^3/uL (2.7-7.7); Neutrophil % 70.4 % (47-70); Platelet Count 268 K/mm3 (150-450); RBC Distribution Width SD 45.5 fl (35.1-43.9); Red Blood Count 4.34 M/mm3 (4.2-5.4); White Blood Count 11.8 K/mm3 (4.4-11.0)
[2024-04-18 21:23] LABS: Color, Urine Yellow (Yellow); Glucose, Dipstick Normal (Normal); Ketone-Dipstick Negative (Negative); Leukocyte Esterase-Dipstick Negative /ul (Negative); Nitrite-Dipstick Negative (Negative); Occult Blood-Urine Negative /ul (Negative); Protein-Dipstick 15 mg/dl (Negative); Specific Gravity, Urine 1.015 (1.002-1.030); Urine Bilirubin Dipstick Negative (Negative); Urine Clarity Sl. Cloudy (Clear); Urine Urobilinogen Normal (Normal)
[2024-04-18 21:32] LABS: Red Blood Cells-Urine 0-5 SEEN /hpf (0-5); Squamous Epithelial Cells - UA 0-5 SEEN /hpf (5-10); White Blood Cells 0-5 SEEN /hpf (0-5)
[2024-04-18 21:33] LABS: Bacteria RARE /hpf (None Seen)
[2024-04-18 21:48] LABS: Protein:Creat Ratio 240 mg/g CRE (0-200)
[2024-04-18 21:48] LABS: AST(SGOT) 13 U/L (15-37); Alanine Aminotransfer ALT/SGPT 22 U/L (13-56); Creatinine, Serum 0.65 mg/dL (0.55-1.02); EST Glomerular Filtration Rate 113 mL/min (>60); Est Glom Filt Rate - Afr Amer 137 mL/min (>60); Estimated Creatinine Clearance 201.47 ml/min; Uric Acid 5.5 mg/dL (2.6-6.0)
[2024-04-18 22:05] LABS: Syphilis Antibodies Non-reactive
[2024-04-18] MEDS: Lactated Ringers 1,000 ML 999 ML IV (22:47)
[2024-04-18 23:59] VITALS: BP 140/87; PULSE 83; RESP 16; TEMP 36.3; O2SAT 100
[2024-04-19] VITALS (42 sets, daily range): BP systolic 79–169; BP diastolic 44–108; PULSE 81–118; RESP 15–25; TEMP 36.1–37.4; O2SAT 93–100
[2024-04-19] MEDS: Ondansetron 4 MG/2 ML Vial IV (01:26)
[2024-04-19] MEDS: DiphenhydrAMINE 50 MG/ML Syringe 25 MG IV (01:36)
[2024-04-19] MEDS: Lactated Ringers 1,000 ML 999 ML IV (01:46)
[2024-04-19] MEDS: fentaNYL 100 MCG/2 ML Ampul IV (01:52)
[2024-04-19] MEDS: Lactated Ringers 1,000 ML 200 ML IV (03:25)
[2024-04-19] MEDS: Amnioinfusion- 0.9% NS 1,000 ML IV.SOLN. 1 ML INTRA-UTER (04:16)
[2024-04-19] MEDS: Terbutaline 1 MG/ML Vial 0.25 MG SC (04:43)
[2024-04-19] MEDS: Methylergonovine 0.2 MG/ML Ampul IM (05:26)
[2024-04-19] MEDS: Cefazolin 2 GM in Syringe IV (05:30)
[2024-04-19] MEDS: BUPIVACAINE LIPOSOME/PF 20 ML VIAL OPERA.SITE (05:45)
[2024-04-19] MEDS: Bupivacaine 0.25% 30 ML Vial 20 ML OPERA.SITE (05:45)
--- NOTE | 2024-04-19 06:00 | PLAC_PTH ---
PATIENT: JOEL HINTON LOC: WP U#:[id number] AGE/SX: 28/F ROOM: WP015 RE04/18/[address]: Dr. Verónica Mars DO : 1995 BED: 1 DIS: 04/21/2024 SPEC #: [id number] RECD: 04/19/24 07:16 STATUS: GINGER JACLYN #: [id number] NICKI: 04/19/24 06:[address]: Verónica Mars DEPT: SURGICAL PATHOLOGY RECD BY: Peggy Echavarrai ENTERED: 04/21/24 10:09 SP TYPE: PLACENTA OTHR DR: Dr. Joel Damon MD Tissues: Placenta, NOS Procedures: Surgery Specimen Level V HEADER OPERATION: Primary section PRE-OP DIAGNOSIS: Routine TISSUE SUBMITTED: Placenta MICROSCOPIC DIAGNOSIS Placenta, Section: 1. Placenta, 428 g, 10-25th percentile for 41 weeks gestational age 2. Membranes: No chorioamnionitis or meconium [id number] 3. Cord: 3 Vessel, No funisitis 4. Disk: Villi of appropriate maturity for gestational age, tiny infarcts, calcification , [id number] MICROSCOPIC DESCRIPTION Slides are reviewed. GROSS DESCRIPTION SPECIMEN: PLACENTA / CLINICAL INFORMATION: A. Weight: 2.75 kg B. Gestational Age: 41 weeks C. Sex: Female PLACENTAL WEIGHT (POST FIXATION): 428 gm PLACENTAL DIMENSIONS: 16 x 14 x 4 cm PLACENTAL SHAPE: Usual ovoid PLACENTAL WEIGHT FOR GESTATIONAL AGE: Within 10-99th percentile (over/under percentile) MEMBRANES - Present A. Insertion: Marginal B. Site of rupture from edge: Membranes are fragmented. Distance of rupture can not be assessed due to fragmentated nature of the specimen. Membranes do not appear to be complete. C. Color of membrane: Mucoidy D. Abnormalities: None UMBILICAL CORD - Present A. Color: Ortega-chandler B. Insertion: Marginal C. Length: 47 cm D. Diameter: 1.1 cm E. Number of vessels: Three F. Abnormalities: None PLACENTAL DISC - Present A. Color of surface: Ortega-chandler B. surface abnormalities: None C. Maternal cotyledons: Intact with minimal tears D. Attached retro placental clot: No clot E. Cut surface: Dark red and spongy F. Lesions: Sections reveal two ortega indurated lesions each measuring 0.5cm in greatest dimension. The lesions are noted at the peripheral portion of the placenta. G. Separate clot: Absent SECTIONS SUBMITTED: (6 cassettes) 1. Membrane roll 2. Cord, maternal end, lesion 3. Cord, end, lesion 4. Placental disc, and maternal surfaces 5. Placental disc, and maternal surfaces 6. Placental disc, and maternal surfaces SJ.mr 04/21/2024 TC:5 CPT: 06620
--- NOTE | 2024-04-19 06:06 | PN.OBGYN_ITS ---
Objective Data Objective Data Vital Signs: Vital Signs Temp Pulse Resp BP Pulse Ox 97.5 F L 81 16 135/88 H 93 04/19/24 03:52 04/19/24 03:52 04/19/24 03:52 04/19/24 03:52 04/19/24 03:11 Weight: 344 lb 8 oz Body Mass Index (BMI) 52.4 Intake & Output: Intake and Output for Last 24 Hours 04/17/24 04/18/24 04/19/24 23:59 23:59 23:59 Intake Total 1999 Balance 1999 Lab / Micro Data 04/18/24 21:00 04/18/24 21:00 Labs: Laboratory Results - last 24 hr 04/18/24 19:59: U Random Total Protein 20.0 H, Urine Creatinine 83.40, P rotein/Creatinin Ratio 240 H 04/18/24 20:58: Urine Color Yellow, Urine Clarity Sl. Cloudy, Urine pH 6.0, Ur Specific Henderson 1.015, Urine Protein 15 H, Urine Glucose (UA) Normal, Urine Ketones Negative, Urine Occult Blood Negative, Urine Nitrite Negative, Urine Bilirubin Negative, Urine Urobilinogen Normal, Ur Leukocyte Esterase Negative, Urine RBC 0-5 SEEN, Urine WBC 0-5 SEEN, Ur Squamous Epith Cells 0-5 SEEN, Urine Bacteria RARE, Urine Mucus 0 SEEN 04/18/24 21:00: WBC 11.8 H, RBC 4.34, Hgb 12.2, Hct 36.8 L, MCV 84.8, MCH 28.1, MCHC 33.2, RDW Std Deviation 45.5 H, RDW Coeff of Wilbur 15.0 H, Plt Count 268, MPV 10.6, Immature Gran % (Auto) 0.900, Neut % (Auto) 70.4 H, Lymph % (Auto) 19.1, Stonewall % (Auto) 8.5, Eos % (Auto) 0.7, Baso % (Auto) 0.4, Absolute Neuts (auto) 8.3 H, Absolute Lymphs (auto) 2.25, Nucleated RBC % 0, Creatinine 0.65, Estim Creat Clear Calc 201.47, Est GFR (MDRD) Af Amer 137, Est GFR (MDRD) Non-Af 113, Uric Acid 5.5, AST 13 L, ALT 22, Syphilis Total Ab Non-reactive, Blood Type O POSITIVE, Antibody Screen NEGATIVE
--- NOTE | 2024-04-19 06:07 | PCM.OP.PRO2 ---
Procedures Urinary/Genital 52xxx-59xxx: [id number] Delivery global pkg (first asssit CNM) Non-invasive Procedural Procedure Information Date of Procedure: 04/19/24 Pre-Procedure Diagnosis: see problem list Procedure Performed:: CNM first line production supervisor interior design professor: Dave Personal Lines Agent: tiffany Tasks completed by first line production supervisor: Retracting Description of procedure: I was present and assisted Dr. Glass From the start of the procedure to the end. I performed retraction, suture cutting, suction, and fundal pressure assistance during the procedure. The wound was dressed with silver Mepilex and the patient was brought to recovery in stable condition. See Dr. Glass Operative note for full details of the procedures.
--- NOTE | 2024-04-19 06:08 | OP.PCM_ITS ---
Assessment & Plan (1) intolerance to labor, delivered, current hospitalization: (2) Elevated blood pressure reading: COMMENT: pre-e labs sent with admission labs. noah (3) Encounter for induction of labor: COMMENT: postdates induction. cytotec (4) Morbid obesity with BMI of 45.0-49.9, adult: COMMENT: BMI 48 at NOB wkly BPP at 36 wk and growth US at 32 and 36wk (5) History of miscarriage, currently : COMMENT: 03/17 chemical (6) Supervision of high-risk : QUALIFIERS: Trimester: third trimester Qualified Code(s): O09.93 - Supervision of high risk , unspecified, third trimester COMMENT: PRR , LING 04/11/24, Moises (7) : QUALIFIERS: Weeks of gestation: 40 weeks Qualified Code(s): Z3A.40 - 40 weeks gestation of COMMENT: GBS neg, NIPT low risk, discussed carrier testing Maternal Data Information LING Calculator Estimated Delivery Date Method Current WG Current Estimate 04/11/24 LMP (Certain) 41w 1d Final LIGN: 04/11/24 Final LING Source: LMP Gestational age: 41 weeks 1 day [place] Doctor Who Attended Delivery: Anny Branch Operative Report (OB) Cecarean Details Procedure Type: low transverse Date of Procedure: 04/19/24 Procedure Start Time: 05:14 Procedure Stop Time: 05:59 Time of Delivery: 05:20 Pre-Operative Diagnosis: Distress and Nonreassuring Status Post-Operative Diagnosis: Same as Pre-operative diagnosis Classification: GEE Type of Anesthesia: Spinal Antibiotic Given: Ancef 2 grams IV x1 and Zithromax 500 mg/5 mL X1 Drain: Ferraro to straight drain Estimated Blood Loss: 800cc Findings Description of surgery: The patient was admitted to L&D for duction of labor for 41-week gestation. The induction was started at 7 PM with Cytotec. By 1053 she started to show 62nd long decelerations that were late in appearance. At 2 AM she received a second dose of Cytotec and just prior to 4 AM deep variable decelerations were noted. The patient made rapid change to 6 cm membranes were ruptured and internal monitor was placed and amnioinfusion was started. Prolonged decelerations were then noted and an JOSE was called. Once moved to the OR it was apparent that the heart rate variable decels were improved and the heart rate was back up to 130's, however this did not resolve the late decelerations. Thick meconium stained fluid was also present at this time and the diagnosis of likely distress was made. The decision was made to proceed with an urgent section. Epidural anesthesia was in place Ferraro catheter was already in placed. The patient was placed in the dorsal supine position with leftward tilt. Patient was prepped and draped in the normal sterile fashion. Pfannenstiel skin incision was made with the scalpel and carried through to the underlying layer of fascia with the scalpel. Fascia was nicked in the midline and the incision extended laterally. The rectus bellies were dissected off superiorly and inferiorly with out complication both sharply and bluntly. The peritoneum was entered digitally. The incision was stretched and a low transverse uterine incision was made with the scalpel. The infant's head was delivered atraumat ically followed by the anterior and posterior shoulders without complication the rest of the infant delivered. The infant was noted to be pale and limp but made effort to cry after a few seconds. The cord was quickly clamped and cut and the was handed off to awaiting nurse. The placenta was delivered spontaneously immediately following and was noted to be intact and have a three- vessel cord but stained with meconium fluid and appeared small. The uterus was exteriorized cleared of all clots and debris, and the incision was closed in a double layer closure using #1 Vicryl followed by Monocryl. The ovaries and fallopian tubes were noted to be within normal limits. The uterus was returned to the maternal abdomen and gutters were cleared of all clots and debris. The peritoneum was closed with 3-0 Monocryl in a running fashion. Gloves were changed prior to fascial closure. The fascia was injected with Exparel plus 0.25 plain bupivacaine. Fascia was closed with 0 PDS in a running fashion. Subcutaneous tissue was copiously irrigated and the skin was closed with 3-0 Monocryl in a subcuticular fashion. Mepilex dressing was applied without complication. Patient was taken to recovery in stable condition. Surgical findings: intolerance to labor with thick meconium stained fluid and late decelerations. The appeared smaller than expected as did the placenta. The cord gases were ABG ph: 7.09 and VBG 7.12, indicating mild acidosis and confirming out decision to proceed with section. Presentation: Vertex Amniotic Membrane Rupture Type: Spontaneous Amniotic Fluid Description: Thick meconium Placental Delivery Description: Manual Removal Placenta Disposition: Sent to Pathology Specimen collected: Yes Description of specimen(s) removed: placenta Cord Vessel Description: 3 Vessels Cord Entanglement: None Cord Gases: ABG and VBG A gender: Female (1 minute): 7 (5 minute): 9 Delayed Cord Clamping: No Sheet Metal Assembler And Riveter risk modeler: Yes Director Medicare Sales: Agueda Leung CNM Tasks completed by rehab care assistant: Hemostasis: Clamp and Retracting Additional assistant store manager operations?: No Complications Complications: No Admit VTE Documentation VTE Present on Admission: No VTE Mechan Device Prophylaxis: SCD's VTE Pharm Prophylaxis Ordered: Yes Multi Select Codes Urinary/Genital Urinary/Genital CPT Codes: 42204 Delivery [facility]
--- NOTE | 2024-04-19 06:29 | DCINST_ITS ---
Discharge Instructions Diet Discharge Diet: No restrictions DC O2, CPAP, BIPAP needs Home O2 Discharge instructions: No Dressing / Incision Discharge Activity: May Not Drive (for 2 weeks or while taking narcotic pain medications.), May Shower and May Take a Tub Bath (in 7 days.) May resume sexual activity in: 4-6 weeks Weight Bearing Status: Full weight bearing Lifting Restrictions: 20 pounds Dressing / Incision Call your doctor if your incision/area has: Continuous Slow Oozing, Sudden Increased Bleeding, Increased Pain/ Swelling, Increased Redness and Foul Smelling Discharge Call your doctor if you observe: Fever of 101 or Higher and Using more than 1 pad per hour Suture Line Care: Avoid Pulling/Pushing and Avoid Pinching/Bending Cleanse incision/area with: Soap & Water and Keep Dressing Clean & Dry Follow Up Care Please Follow Up With: Verónica Mars DO When: Call [phone] to make an appointment for an incision check in 1-2 weeks. Test Results: Test results from this visit will be discussed in further detail at your follow- up appointment, if applicable. Discharge Plan Admission Admit Date/Time: 04/18/24 19:10 Primary Reason for Your Visit: section Attending Provider: Verónica Mars Primary Care Provider: Joel Damon Discharge Orders/Prescriptions Prescriptions: New ibuprofen 800 mg tablet 800 mg PO Q8H PRN (Reason: pain) Qty: 30 0RF oxycodone-acetaminophen [Percocet] 5-325 mg tablet 1 tab PO Q4H PRN (Reason: pain) 7 Days Qty: 20 0RF Rx Instructions: 1-2 tabs q 4 hrs as needed for pain Continued PNV [id number] 180 mcg-35 mg- 25 mg-5 mg tablet,chewable 1 tab PO DAILY pyridoxine (vitamin B6) 25 mg tablet 25 mg PO DAILY acetaminophen [Tylenol] 325 mg tablet 325 mg PO Q6H PRN Referrals / Follow Up: Joel Damon MD [Primary Care Provider] - Disposition Disposition (needs filled in before D/C Order can be placed): Home, Self Care
[2024-04-19] MEDS: Ketorolac 30 MG/ML Syringe IV ×2 (06:53→12:15)
[2024-04-19] MEDS: LACTATED RINGERS 500 ML 999 ML IV (07:03)
[2024-04-19] MEDS: Oxytocin 15 Units/NS 250ml 15 UNITS/250 ML IV.SOLN 83 UNITS IV (07:03)
[2024-04-19 07:22] LABS: Pathology Specimen OB SEE PATHOLOGY REPORT
[2024-04-19] MEDS: Azithromycin 500 MG in 0.9% Normal Saline (250mL Bag) 250 ML 250 MG IV (07:31)
[2024-04-19] MEDS: HYDROmorphone 1 MG/ML Syringe IV (10:07)
[2024-04-19] MEDS: 0.9% Saline Lock 10 ML Syringe IV ×2 (10:08→12:16)
[2024-04-19] MEDS: Senna/Docusate Sodium 1 Tablet PO (12:15)
[2024-04-19] MEDS: Acetaminophen 500 MG Tablet 1000 MG PO ×2 (12:15→17:50)
[2024-04-19] MEDS: oxyCODONE 5 MG Tablet PO ×2 (16:43→21:13)
[2024-04-19] MEDS: Enoxaparin 40 MG/0.4 ML Syringe SC (17:50)
[2024-04-19] MEDS: Naproxen 500 MG Tablet PO (18:40)
[2024-04-20] VITALS (13 sets, daily range): BP systolic 134–149; BP diastolic 73–100; PULSE 88–121; RESP 16–18; TEMP 36.3–37.1; O2SAT 97–98
[2024-04-20] MEDS: Acetaminophen 500 MG Tablet 1000 MG PO ×4 (00:20→19:55)
[2024-04-20] MEDS: Naproxen 500 MG Tablet PO ×3 (03:36→18:24)
[2024-04-20] MEDS: oxyCODONE 5 MG Tablet PO ×2 (04:04→19:55)
[2024-04-20] MEDS: Enoxaparin 40 MG/0.4 ML Syringe SC ×2 (06:16→18:25)
[2024-04-20 06:49] LABS: Hematocrit 32.5 % (37-47); Hemoglobin 10.9 g/dL (12.0-15.0); Mean Corp Hgb Conc 33.5 g/dL (32-36); Mean Corpuscular Hgb 28.8 pg (27.0-32.0); Mean Corpuscular Volume 85.8 fL (81-99); Mean Platelet Vol. 10.3 fl (6.2-12.0); Platelet Count 224 K/mm3 (150-450); RBC Distribution Width CV 15.5 % (11.6-14.6); RBC Distribution Width SD 47.8 fl (35.1-43.9); Red Blood Count 3.79 M/mm3 (4.2-5.4); White Blood Count 13.7 K/mm3 (4.4-11.0)
--- NOTE | 2024-04-20 10:06 | PCM.PN.CNM ---
Subjective Subjective Patient doing well without complaints. Tolerating PO. Ambulating and voiding without difficulty. Feeding well. Denies chest pain, shortness of breath, calf pain/swelling, fevers, chills, lightheadedness. Objective Data Objective Data Vital Signs: Vital Signs Temp Pulse Resp BP Pulse Ox O2 Del Method 98.2 F 92 16 134/75 H 97 Room Air 04/20/24 05:00 04/20/24 08:21 04/20/24 05:00 04/20/24 08:21 04/20/24 08:21 04/20/24 05:00 Oxygen Delivery Method Room Air Weight: 344 lb 8 oz Body Mass Index (BMI) 52.4 Intake & Output: Intake and Output for Last 24 Hours 04/18/24 04/19/24 04/20/24 23:59 23:59 23:59 Intake Total 3792.11 / 3792.11 Output Total 4700 / 4700 1000 / 1000 Balance -907.89 / -907.89 -1000 / -1000 Lab / Micro Data 04/20/24 06:30 04/18/24 21:00 Labs: Laboratory Results - last 24 hr 04/20/24 06:30: WBC 13.7 H, RBC 3.79 L, Hgb 10.9 L, Hct 32.5 L, MCV 85.8, MCH 28.8, MCHC 33.5, RDW Std Deviation 47.8 H, RDW Coeff of Wilbur 15.5 H, Plt Count 224, MPV 10.3 Physical Exam Const alert and oriented x3 Lymph Lymphatic: no lymphadenopathy noted Chest inspection of chest normal and inspection of breasts normal Resp normal respiratory effort, normal air movement and no use of accessory muscles Cardio regular rate and regular rhythm GI normal to inspection, nondistended, normoactive bowel sounds Uterus Palpation: uterus fundus firm Extremity normal to inspection and full ROM Extremity Narrative: trace edema Skin no rashes or lesions noted Skin Narrative: dressing c/d/i Psych mental status grossly normal Assessment & Plan (1) Status post section: COMMENT: OCTAVIO- 04/19/24 (2) Encounter for induction of labor: COMMENT: postdates induction. cytotec (3) Morbid obesity with BMI of 45.0-49.9, adult: COMMENT: BMI 48 at NOB wkly BPP at 36 wk and growth US at 32 and 36wk PLAN: Plan s/p LTCS PPD # 1 1. routine post care 2. breast feeding- support given 3. rh positive 4. rubella immune
[2024-04-20] MEDS: Senna/Docusate Sodium 1 Tablet PO (10:25)
[2024-04-21] MEDS: Naproxen 500 MG Tablet PO ×2 (02:07→10:08)
[2024-04-21] MEDS: Acetaminophen 500 MG Tablet 1000 MG PO ×2 (02:07→10:08)
[2024-04-21 02:09] VITALS: BP 128/83; PULSE 114; RESP 16; TEMP 36.6
[2024-04-21] MEDS: Enoxaparin 40 MG/0.4 ML Syringe SC (06:38)
--- NOTE | 2024-04-21 07:18 | PCM.PN.OB ---
Subjective Subjective Patient doing well without complaints. Tolerating PO. Ambulating and voiding without difficulty. feeding well. Denies chest pain, shortness of breath, calf pain/swelling, fevers, chills, lightheadedness. Objective Data Objective Data Vital Signs: Vital Signs Temp Pulse Resp BP Pulse Ox O2 Del Method 97.8 F 114 H 16 128/83 H 97 Room Air 04/21/24 02:09 04/21/24 02:09 04/21/24 02:09 04/21/24 02:09 04/20/24 20:50 04/21/24 02:09 Oxygen Delivery Method Room Air Weight: 344 lb 8 oz Body Mass Index (BMI) 52.4 Intake & Output: Intake and Output for Last 24 Hours 04/19/24 04/20/24 04/21/24 23:59 23:59 23:59 Intake Total 3792.11 / 3792.11 Output Total 4700 / 4700 1000 / 1000 Balance -907.89 / -907.89 -1000 / -1000 Lab / Micro Data 04/20/24 06:30 04/18/24 21:00 ROS Constitutional Constitutional: Reports systems reviewed and no addt'l complaints, except as documented Cardiovascular Cardiovascular: Reports systems reviewed and no addt'l complaints, except as documented Respiratory/Chest Respiratory/Chest: Reports systems reviewed and no addt'l complaints, except as documented Gastrointestinal Gastrointestinal: Reports systems reviewed and no addt'l complaints, except as documented Physical Exam Const alert, oriented x3 and no apparent distress HEENT Head and Scalp: atraumatic Resp normal respiratory effort GI soft to palpation and non-tender Inspection: incision intact, healing well and drainage (none) Bimanual Exam - Vag & Uterus: uterus non-tender Uterus Palpation: uterus fundus firm (below Umbilicus) Assessment & Plan (1) Status post section: COMMENT: OCTAVIO- 04/19/24 PLAN: Plan s/p LTCS PPD # 2 1. routine post care 2. breast feeding- support given 3. rh positive 4. rubella immune
[2024-04-21 08:35] VITALS: BP 136/72; PULSE 110; RESP 16; O2SAT 98
[2024-04-21 08:36] VITALS: BP 136/72; PULSE 113
[2024-04-21] MEDS: Senna/Docusate Sodium 1 Tablet PO (10:08)
--- NOTE | 2024-04-21 12:33 | CASEMGMT ---
Social Work Assessment Labor and Delivery Unit Patient Address:[address] [place] [address] Phone number: [phone] Date of Referral: 04/19/24 Time of Referral:? 1930 Referred By: Dr. Mars Date of Intervention: ??04/21/24 Time of Intervention:? 1100 Reason for Referral:? hx of anxiety Sw completed chart review and acknowledged social work consult due to maternal mental health history. Sw presented to bedside and introduced self to mother of baby (MOB- Shelly) and father of baby (FOMarbella- Moises). Sw explained reason for sw involvement and completed pychosocial assessment. History obtained from: medical records, MOB and FOB. Household composition: Currently residing in the home is MOB and FOMarbella. [place] baby to be added to residence when ready for discharge. Parents deny any problems with housing, stating it is safe and secure. Patient's parent/guardian status:? ?DEXTER states that she and MIESHA have known each other for a long time, and started dating off and on around 9 years ago. Ultimately they were in a committed relationship and have now been almost 5 years. No concerns reported of domestic violence or intimate partner violence. baby is first baby for both parents. Medical History: ?DEXTER is 28 year old female who is 2, para 0- now 1 following labor and delivery of . DEXTER received routine care during with [place]. DEXTER presented to hospital for induction of labor due to post dates. DEXTER required GEE due to non-reassuring heart tones. Baby was born on [birth year]19/24 at 41 weeks gestation. Baby girl, named Cole, was born weighing 6lb 9oz with apgars of 7 and 9 at one and five minutes of life, respectfully. DEXTER states that she is breast feeding and baby will be followed by Dr. Pederson for pediatrics. Educational Status:? Both parents graduated from high school, DEXTER has her Bachelor's degree and MIESHA has some college education but no degree. No problems with reading, learning or comprehension. Financial Status: Both parents are gainfully employed outside of the home. DEXTER works for [employer] and MIESHA is a manager spring. Infant Supplies: All necessary baby supplies obtained, including: car seat, safe sleep space, clothes, diapers and wipes. Childcare/Caregiver(s):? MOB will be the primary caregiver to baby along with FOB when he is not at work. Parents have worked out a net software developer schedule for when both parents are working. Transportation: Both parents have their drivers license and reliable means of transportation, no barriers. ?? Programs/Agencies Involved: ???DEXTER was connected to resources through [facility] during her . They are over income at this time for other community resources that provide financial assistance. DEX[facility] Children Services/Legal Issues:??? No history of children services involvement, no issues or concerns warranting referral to be made at this time. Behavioral Health Issues: ??Mental Health History:?MIESHA denies mental health history. DEXTER states that she has been diagnosed with anxiety and depression. MOB states that [facility] DEXTER states that counseling has helped her to learn coping skills and strategies to cope with her anxiety. ?? Substance Use History:?Parents deny substance use history prior to and during . ? Family History:??DEXTER reports that her biological father and his family have history of substance and alcohol abuse. MOB states that because of her genetic disposition she does not drink. ??? Drug Screens: No drug screens observed while completing chart review. Family/Social Stressors:? Parents deny any issues, concerns or stressors at this time. Support Systems: DEXTER states that her mom, step dad, FOB and his parents are her greatest supports. Depression/Shaken Baby/Safe Sleeping: Tosin educated parents on signs and symptoms of baby blues and mood and anxiety disorders to be mindful of during this period. MOB states that this is something that she and FOB have talked about, they are familiar with symptoms to be mindful of. MOB states that at this time she feels good, denies feelings of anxiety, sadness or depression. FOB asked appropriate questions and was observed wanting to be mindful of MOB's mental health going into this period. Tosin educated parents on shaken baby prevention and ABCs of safe sleep, parents expressed understanding. ASSESSMENT:? MOB and baby admitted following labor and delivery of . MOB and FOB both at bedside and active in care. MOB and FOB both very polite and talkative during assessment. Parents asked appropriate questions showing interest in how to best care for MOB's mental health as well as their . MOB with mental health history positive for anxiety and some depression. MOB states that she has pans of meeting with her counselor to ensure that she is being mindful of her mental health. MOB observed to have a lot of supports in place too as her mom and step dad were also present and attentive during assessment. MOB stated it was okay to complete assessment with them present. MOB and FOB also observed to have strong relationship and support found in one another. All necessary baby supplies obtained. PLAN:?? No other services requested or indicated. MOB and baby to be discharged when medically ready. Parents were provided literature regarding: signs and symptoms of baby blues and mood and anxiety disorders, Help Me Grow, shaken baby prevention, ABCs of safe sleep and a list of county resources that are available for them should any needs present themselves. Shy Arriaga, GRID OPERATOR, NOCTURNIST
[2024-04-21 13:02] VITALS: BP 142/84; PULSE 121
[2024-04-21 13:29] VITALS: BP 142/84; PULSE 100; RESP 16
--- NOTE | 2024-04-22 18:40 | PCM.DC.SUM ---
Providers Date of Admission: 04/18/24 Primary Care Physician: Dr. Joel Damon MD Reason For Visit: C SECTION Diagnosis Discharge Diagnosis (1) Status post section: Status: Acute Code(s): Z98.891 - History of uterine scar from previous surgery Plan s/p LTCS PPD # 2 1. routine post care 2. breast feeding- support given 3. rh positive 4. rubella immune Medications at Discharge Home Medications PNV 178-FA 180 mcg-om3 35 mg-dha 25 mg-epa 5 mg-fish oil chew tablet 1 tab PO DAILY 09/07/23 pyridoxine (vitamin B6) 25 mg tablet 25 mg PO DAILY 09/07/23 acetaminophen 325 mg tablet (Tylenol) 325 mg PO Q6H PRN 12/04/23 ibuprofen 800 mg tablet 800 mg PO Q8H PRN pain #30 tabs 04/19/24 oxycodone-acetaminophen 5 mg-325 mg tablet (Percocet) 1 tab PO Q4H PRN pain 7 days #20 tabs 04/19/24 Hospital Course Summary of Care Provided Hospital Course: presented for IOL secondary to elevated bps. she developed NRFHTs and underwent and emergent csection, she had a routine recovery and was stable for dc to home. Weight / BMI Weight Weight: 344 lb 8 oz Body Mass Index (BMI) 52.4 ABG / Lab / Microbiology Data 04/20/24 06:30 04/18/24 21:00 D/C Instructions Discharge Diet: No restrictions Discharge Activity: May Not Drive (for 2 weeks or while taking narcotic pain medications.), May Shower and May Take a Tub Bath (in 7 days) May shower in (days): 0 May resume sexual activity in: 4-6 weeks Weight Bearing Status: Full weight bearing Call your doctor if your incision/area has: Continuous Slow Oozing, Sudden Increased Bleeding, Increased Pain/ Swelling, Increased Redness and Foul Smelling Discharge Call your doctor if you observe: Fever of 101 or Higher and Using more than 1 pad per hour Suture Line Care: Avoid Pulling/Pushing and Avoid Pinching/Bending Cleanse incision/area with: Soap & Water and Keep Dressing Clean & Dry DC O2, CPAP, BIPAP Needs Home O2 Discharge instructions: No Please Follow Up With: Verónica Mars DO When: Call [phone] to make an appointment for an incision check in 1-2 weeks. Meaningful Use Info Meaningful Use Meaningful Use Diagnoses (Choose all that apply): None applicable Ischemic Stroke Statin Dosing Therapy Reference: STATIN DOSE THERAPY REFERENCE: * Patients > 75 years receive moderate or high dose statin therapy. * Patients 75 years or YOUNGER should receive HIGH intensity statin dose unless contraindicated. You will be required to document reason for non-treatment if statin daily dose does not meet guidelines. HIGH DOSE STATIN THERAPY DAILY Atorvastatin > than or = to 40 mg Rosuvastatin > than or = to 20 mg Amlodipine + Atorvastatin > than or = to 2.5/40 mg Ezetimibe + Simvastatin 10/80 mg Simvastatin 80mg Discharge Plan Admission Admit Date/Time: 04/18/24 19:10 Primary Reason for Your Visit: section Attending Provider: Verónica Mars Primary Care Provider: Joel Damon Instructions Patient Instructions: After a Discharge Orders/Prescriptions Prescriptions: New ibuprofen 800 mg tablet 800 mg PO Q8H PRN (Reason: pain) Qty: 30 0RF oxycodone-acetaminophen [Percocet] 5-325 mg tablet 1 tab PO Q4H PRN (Reason: pain) 7 Days Qty: 20 0RF Rx Instructions: 1-2 tabs q 4 hrs as needed for pain Continued PNV [id number] 180 mcg-35 mg- 25 mg-5 mg tablet,chewable 1 tab PO DAILY pyridoxine (vitamin B6) 25 mg tablet 25 mg PO DAILY acetaminophen [Tylenol] 325 mg tablet 325 mg PO Q6H PRN Referrals / Follow Up: Joel Damon MD [Primary Care Provider] - Disposition Disposition (needs filled in before D/C Order can be placed): Home, Self Care
== END 2024-04-21 13:45 | disposition home or self-care (01) | DRG 787 ==
PROVIDERS: Registered Nurse; Admitting Provider Obstetrics & Gynecology; PCP Internal Medicine; Referring Provider Obstetrics & Gynecology; Visit Provider Obstetrics & Gynecology
DX: O76 Abnormality in fetal heart rate and rhythm complicating labor and delivery (principal); E87.20 Acidosis, unspecified; O99.214 Obesity complicating childbirth; E66.01 Morbid (severe) obesity due to excess calories; O77.0 Labor and delivery complicated by meconium in amniotic fluid; O48.0 Post-term pregnancy; O99.892 Other specified diseases and conditions complicating childbirth; Z37.0 Single live birth; R03.0 Elevated blood-pressure reading, without diagnosis of hypertension; O99.284 Endocrine, nutritional and metabolic diseases complicating childbirth; Z3A.41 41 weeks gestation of pregnancy; N96 Recurrent pregnancy loss
CPT/HCPCS: 59025; 59050; 81001; 82565; 82570; 84156; 84450; 84460; 84550; 85025; 85027; 86780; 86850; 86900; 86901; 88307; 99221; A4216; G0378; J0666; J2405

== ENCOUNTER → 2024-06-06 | Outpatient (CLI) | payer BC, SELFPAY ==
[2024-06-12 13:08] LABS: HPV APTIMA, High Risk Negative (Negative)
== END | disposition home or self-care (01) ==
PROVIDERS: PCP Internal Medicine; Visit Provider Registered Nurse
DX: Z12.4 Encounter for screening for malignant neoplasm of cervix (principal)
CPT/HCPCS: 87624; 88175; G0145

== ENCOUNTER 2024-09-16 10:45 | Outpatient (CLI) | payer BC, SELFPAY | END 2024-09-16 11:25 | disposition home or self-care (01) | LOC: WPOUT 10:49 → WP 10:49 | PROVIDERS: PCP Internal Medicine; Referring Provider Obstetrics & Gynecology; Visit Provider Obstetrics & Gynecology | DX: Z39.1 Encounter for care and examination of lactating mother (principal) | CPT/HCPCS: 96158 ==

== ENCOUNTER → 2024-12-11 | Outpatient (CLI) | payer OTHER, SELFPAY ==
[2024-12-11 15:58] LABS: AST(SGOT) 23 U/L (<=31); Alanine Aminotransfer ALT/SGPT 20 U/L (<=34); Albumin, Serum 4.5 g/dL (3.5-5.0); Alkaline Phosphatase 108 U/L (35-104); Anion Gap 13 (5-15); BUN 13 mg/dL (4-19); BUN/Creat Ratio 16.3 RATIO (10-20); Calcium,Total 8.7 mg/dL (7.6-11.0); Carbon Dioxide 19.3 mmol/L (21.0-32.0); Chloride 104 mmol/L (98-108); Globulin 3.1 g/dL (2.2-4.2); Glucose 109 mg/dL (70-99); Potassium 3.9 mmol/L (3.3-5.1)
[2024-12-11 16:08] LABS: Hematocrit 41.2 % (37-47); Hemoglobin 13.6 g/dL (12.0-15.0); Immature Granulocytes Count 0.030 X10^3/uL (0.0-0.0); Mean Corp Hgb Conc 33.0 g/dL (32-36); Mean Corpuscular Volume 82.4 fL (81-99); Mean Platelet Vol. 10.3 fl (6.2-12.0); NRBC Flagged by Analyzer 0 % (0-5); Platelet Count 283 K/mm3 (150-450); RBC Distribution Width CV 14.5 % (11.6-14.6); RBC Distribution Width SD 43.4 fl (35.1-43.9); Red Blood Count 5.00 M/mm3 (4.2-5.4); White Blood Count 7.0 K/mm3 (4.4-11.0)
== END | disposition home or self-care (01) ==
LOC: LAB 15:13
PROVIDERS: PCP Internal Medicine; Referring Provider Physician Assistant; Visit Provider Physician Assistant
DX: R42 Dizziness and giddiness (principal)
CPT/HCPCS: 36415; 80053; 84443; 85025; 85652

== ENCOUNTER 2024-12-12 01:13 | Emergency (ER) | payer OTHER, SELFPAY ==
[2024-12-12 01:16] VITALS: BP 121/84; PULSE 93; RESP 20; TEMP 36.8; O2SAT 97; BMI 47.6
--- OUTSIDE RECORDS SUMMARY | 2024-12-12 01:25 | XMS RPT_ITS | CCD ---
Author Organization [facility] CliniSyal Care Team Providers Care Glass Tinter Name Role Phone VERÓNICA MCKNIGHT Referring Unavailab le ABDULLAHI PRIMARY CAREMD Primary Care Unavailable AMAYA GALE Attending Unavailable VERÓNICA MCKNIGHT Referring Unavailab LIAN Cannon Attending Unavailable NO PRIMARY CARE, Primary Care Unavailable VERÓNICA MCKNIGHT Referring Unavailab ALEXIA Whitney Attending Unavailable NO PRIMARY CARE, Primary Care Unavailable Care Physician, No Primary Primary Care Provider Unavailable Care Physician, No Primary Referring Provider Un available Agueda Leung CNM Attending Provider [phone] Freida Becker MD Attending Provider Bg PARTY PLAN SALES AGENT-CPatsy Other Provider [phone] Dr. Verónica Mars DO Attending Provider Dr. Verónica Mars DO Referring Provider Bg PARTY PLAN SALES AGENT-CPatsy Attending Provider Bg PARTY PLAN SALES AGENT-Patsy Ritter Referring Provider Dr. Joel Damon MD Primary Care Provider Ana Caldera CNM Attending Provider Alexandr CHURCH-Stephanie Ritter Attending Provider Dr. Freida Becker MD Referring Provider Dr. Freida Becker MD Other Provider [phone] Dr. Joel Damon MD Referring Provider [phone] Dr. Verónica Mars DO Admit Provider [phone] Leung CNM, Agueda Admit Provider Madhu CNM, Agueda Referring Provider Leung CNM, Agueda Other Provider Liz Vega DO, Dr. Sanches Other Provider Oxana GARZA, Dr. Plaza Attending Provider Yoav GARZA, Dr. Nieto Attending Provider Care Physician, No Primary Referring Provider Un available Marisol GARZA, Dr. Maldonado Primary Care Provider Marisol GARZA, Dr. Maldonado Referring Provider Madhu CNM, Agueda Attending Provider Eugenio GARZA, Dr. Guan Attending Provider Eugenio GARZA, Dr. Guan Referring Provider Verónica Mars Attending Unavailabl e Verónica Mars Referring Unavailabl e Ana Caldera Consulting Unavailable Care Physician, No Primary Primary Care Unava ilable Oleghe, Efewongbe Primary Care Unavailable Freida Becker Referring Unavailable Freida Becker Attending Unavailable Oleghe, Efewongbe Primary Care Unavailable [place] PARTY PLAN SALES AGENT, Patsy Referring Unavailable Bg PARTY PLAN SALES AGENT, Patsy Attending Unavailable Oleghe, Efewongbe Primary Care Unavailable Oleghe, Efewongbe Referring Unavailable Ana Caldera Attending Unavailable Oleghe, Efewongbe Primary Care Unavailable Bg PARTY PLAN SALES AGENT, Patsy Referring Unavailable Bg PARTY PLAN SALES AGENT, Patsy Attending Unavailable Verónica Mars Attending Unavailabl e Vande VelVerónica aguirre Referring Unavailabl e Care Physician, No Primary Primary Care Unava ilable [place] PARTY PLAN SALES AGENT, Patsy Consulting Unavailable Verónica Mars Attending Unavailabl e Vande Verónica Vega Referring Unavailabl e Care Physician, No Primary Primary Care Unava ilable Oleghe, Efewongbe Primary Care Unavailable Freida Becker Referring Unavailable Freida Becker Attending Unavailable Oleghe, Efewongbe Primary Care Unavailable Bg PARTY PLAN SALES AGENT, Patsy Referring Unavailable [place] PARTY PLAN SALES AGENT, Patsy Attending Unavailable Oleghe, Efewongbe Primary Care Unavailable Care Physician, No Primary Referring Unava ilable Emilia Cason Attending Unavailable Oleghe, Efewongbe Primary Care Unavailable Oleghe, Efewongbe Referring Unavailable Agueda Leung Attending Unavailable Care Physician, No Primary Primary Care Unava ilable Freida Becker Attending Unavailable Care Physician, No Primary Referring Unava ilable Care Physician, No Primary Referring Unava ilable Ana Caldera Attending Unavailable Care Physician, No Primary Primary Care Unava ilable Oleghe, Efewongbe Primary Care Unavailable Stephanie Strange NP Attending Unavailable Care Physician, No Primary Referring Unava ilable Ana Caldera Attending Unavailable Care Physician, No Primary Referring Unava ilable Care Physician, No Primary Primary Care Unava ilable Jack Zelaya Attending Unavailable Care Physician, No Primary Primary Care Unava ilable Oleghe, Efewongbe Primary Care Unavailable Patsy Pederson NP Attending Unavailable Patsy Pederson NP Referring Unavailable Oleghe, Efewongbe Primary Care Unavailable Agueda Leung Attending Unavailable Verónica Mars Consulting Unavailabl e Vande Velde, Verónica Admitting Unavailabl e Vande Silvia, Verónica Referring Unavailabl e Agueda Leung Attending Unavailable Oleghe, Efewongbe Primary Care Unavailable Agueda Leung Attending Unavailable Care Physician, No Primary Primary Care Unava ilable Care Physician, No Primary Referring Unava ilable Oleghe, Efewongbe Referring Unavailable Verónica Mars Attending Unavailabl e Oleghe, Efewongbe Primary Care Unavailable Oleghe, Efewongbe Primary Care Unavailable Verónica Mars Referring Unavailabl e Vande Veltimothy, Verónica Attending Unavailabl e Vande Veltimothy, Verónica Admitting Unavailabl e Bg PARTY PLAN SALES AGENTPatsy Attending Unavailable Care Physician, No Primary Referring Unava ilable Care Physician, No Primary Primary Care Unava ilable Sohae VelVerónica aguirre Attending Unavailabl e Vande Veltimothy, Verónica Referring Unavailabl e Care Physician, No Primary Primary Care Unava ilable Oleghe, Efewongbe Primary Care Unavailable Bg PARTY PLAN SALES AGENTPatsy Attending Unavailable Care Physician, No Primary Referring Unava ilable Oleghe, Efewongbe Primary Care Unavailable Freida Becker Attending Unavailable Care Physician, No Primary Referring Unava ilable Care Physician, No Primary Primary Care Unava ilable Freida Becker Attending Unavailable Care Physician, No Primary Referring Unava ilable Sohae VelVerónica aguirre Attending Unavailabl e Care Physician, No Primary Referring Unava ilable Care Physician, No Primary Primary Care Unava ilable Sohae Silvia, Verónica Attending Unavailabl e Care Physician, No Primary Referring Unava ilable Care Physician, No Primary Primary Care Unava ilable Sohae Silvia, Verónica Attending Unavailabl e Care Physician, No Primary Referring Unava ilable Care Physician, No Primary Primary Care Unava ilable Oleghe, Efewongbe Primary Care Unavailable Ana Caldera Attending Unavailable Care Physician, No Primary Referring Unava ilable Ana Caldera Attending Unavailable Care Physician, No Primary Referring Unava ilable Care Physician, No Primary Primary Care Unava ilable Freida Becker Attending Unavailable Oleghe, Efewongbe Primary Care Unavailable Verónica Mars Referring UnavailBola Lundberg Attending Unavailable Freida Becker Consulting Unavailable Oleghe, Efewongbe Primary Care Unavailable Freida Becker Referring Unavailable Freida Becker Attending Unavailable Agueda Leung Consulting Unavailable Agueda Leung Admitting Unavailable Agueda Leung Referring Unavailable Allergies Allergy Classification Reported Allergen(s) Allergy Type Date of Onset Reaction(s) Facility (2 sources) Coconut extract Drug Allergy 06-06-2024 [facility] Comment on above: scratchy throat, if topical skin gets red, flaky, itches (1 source) Coconut extract Drug Allergy 06-06-2024 [facility] Repository Medications Current Medications Medication Drug Class(es) Dates Sig (Normalized) Sig (Original) Pnv 35-Txoe-Hlyzeynhs Calc-Dha (Obstetrix Dha Duo) 29 mg iron- 1,700 mcg DFE comb pack,tablet ,capsule (2 sources) Start: 05-21-2024 Pnv 34-Fecm-Vokuszkpp Calc-Dha (Obstetrix Dha Duo) 29 mg iron- 1,700 mcg DFE comb pack,tablet ,capsule Active NMA PO May 21, 2024 1:00am Completed/Discontinued Medications Medication Drug Class(es) Dates Sig (Normalized) Sig (Original) acetaminophen 325 mg oral tablet (2 sources) Start: 12-04-2023 End: 05-21-2024 take 1 tablet by mouth every six hours as needed Acetaminophen (Tylenol) 325 mg tablet Discontinued 325 mg PO EVERY 6 HOURS as needed December 04, 2023 12:00am May 21, 2024 2:59pm acetaminophen 325 mg / oxyCODONE hydrochloride 5 mg oral tablet (2 sources) Opioid Agonist Start: 04-19-2024 End: 05-21-2024 take 1-2 tablets by mouth every four hours as needed for pain Oxycodone-Acetamino phen (Percocet) 5-325 mg tablet Discontinued 1 {tbl} PO Q4H as needed for pain 12 10April 19, 2024 May 21, 2024 2:59pm 1-2 tabs q 4 hrs as needed for pain Calcium Carbonate / Simethicone (2 sources) Start: 09-07-2023 End: 09-11-2023 Calcium Carbonate-Simethico ne 500-20 mg tablet,chewable Discontinued {tbl} PO September 07, 2023 12:00am September 11, 2023 11:42am estradiol 1 mg oral tablet (2 sources) Estrogen Start: 12-30-2019 End: 01-13-2020 take 1 tablet by mouth twice daily Estradiol (Estrace) 1 mg tablet Discontinued 1 mg PO TWICE A DAY December 30, 2019 12:00am January 12, 2020 12:00am January 13, 2020 12:03am etonogestrel 68 mg drug implant (2 sources) Progestin Start: 12-30-2019 End: 12-12-2021 Etonogestrel (Nexplanon) 68 mg implant Discontinued 1 NMA subdermal ONCE December 30, 2019 12:00am December 12, 2021 10:01am as a single dose ibuprofen 800 mg oral tablet (2 sources) Nonsteroidal Anti-inflammatory Drug Start: 04-19-2024 End: 05-21-2024 take 1 tablet by mouth every eight hours as needed for pain Ibuprofen 800 mg tablet Discontinued 800 mg PO Q8H as needed for pain April 19, 2024 1:00am May 21, 2024 2:59pm Mv-Mn 743-Zm-Pl3-Dha-Epa- Fish 180 mcg-35 mg- 25 mg-5 mg tablet,chewable (1 source) Start: 09-07-2023 End: 05-21-2024 Mv-Mn 449-Hi-Wf3-Dha-Epa- Fish 180 mcg-35 mg- 25 mg-5 mg tablet,chewable Discontinued 1 {tbl} PO DAILY September 07, 2023 12:00am May 21, 2024 2:59pm Pnv No.264-Ly-Sz7-Dha-E pa-Fish 180 mcg-35 mg- 25 mg-5 mg tablet,chewable (1 source) Start: 09-07-2023 End: 05-21-2024 Pnv No.125-Vk-Tn3-Dha-E pa-Fish 180 mcg-35 mg- 25 mg-5 mg tablet,chewable Discontinued 1 {tbl} PO DAILY September 07, 2023 12:00am May 21, 2024 2:59pm pyridoxine hydrochloride 25 mg oral tablet (2 sources) Start: 09-07-2023 End: 05-21-2024 take 1 tablet by mouth once daily Pyridoxine (Vitamin B6) 25 mg tablet Discontinued 25 mg PO DAILY September 07, 2023 12:00am May 21, 2024 2:59pm Problems Active Problems Problem Classification Problem Date Documented Date Episodic/Chronic Administrative/soci al admission (2 sources) First encounter by subject; Translations: [Persons encountering health services in other specified circumstances] 05-21-2024 Episodic Anxiety disorders (2 sources) Mild anxiety; Translations: [Anxiety disorder, unspecified] 05-21-2024 Chronic Contraceptive and procreative management (4 sources) Subcutaneous contraceptive implant present; Translations: [Encounter for surveillance of implantable subdermal contraceptive] 05-21-2024 Episodic Comment on above: support and info pro vided, questions answered, weightloss encouraged, testing offered. Headache; including migraine (2 sources) Headache; Translations: [Headache] 12-07-2023 Episodic Headache; including migraine (1 source) Headache; including migraine; Translations: [Headache, unspecified] Onset: Mood disorders (2 sources) Moderate major depression ; Translations: [Major depressive disorder, single episode, moderate] 05-21-2024 Chronic Other circulatory disease (3 sources) Elevated blood pressure; Translations: [Elevated blood-pressure reading, without diagnosis of hypertension] 05-21-2024 Episodic Comment on above: pre-e labs sent with admission labs. noah Other complications of (1 source) Obesity complicating , unspecified trimester; Translations: [Obesity complicating , unspecified trimester] Onset: 5 Chronic Other complications of (4 sources) Other mental disorders complicating the puerperium; Translations: [ anxiety] 06-06-2024 Episodic Comment on above: support i nternationalreviewed s/sx to increase caremedications reviewed, declines currently Other complications of (10 sources) H/O: miscarriage; Translations: [Supervision of with other poor reproductive or obstetric history, unspecified trimester] 05-20-2024 Episodic Comment on above: 03/17 chemical pregn timbo Other complications of (10 sources) High risk ; Translations: [Supervision of high risk , unspecified, unspecified trimester] 05-20-2024 Episodic Comment on above: PRR , LING 04/11/ 5, Moises Other nutritional; endocrine; and metabolic disorders (12 sources) Body mass index 40+ - severely obese; Translations: [Morbid (severe) obesity due to excess calories] 05-21-2024 Chronic Other nutritional; endocrine; and metabolic disorders (2 sources) Morbid (severe) obesity due to excess calories; Translations: [Morbid (severe) obesity due to excess calories] Onset: 5 Chronic Other nutritional; endocrine; and metabolic disorders (2 sources) Body mass index (BMI) 45.0-49.9, adult; Translations: [Body mass index [BMI] 45.0-49.9, adult] Onset: 4 Chronic Other and delivery including normal (20 sources) Patient encounter status; Translations: [Encounter for supervision of normal , unspecified, unspecified trimester] Onset: 5 05-20-2024 Episodic Comment on above: postdates induction. cytotec routine care GBS neg, NIPT low ri sk, discussed carrier testing Residual codes; unclassified (2 sources) Immunization not carried out because of patient refusal; Translations: [COVID-19 vaccination declined] 05-21-2024 Episodic Past or Other Problems Problem Classification Problem Date Documented Da te Episodic/Chronic Abdominal pain (3 sources) Flank pain; Translations: [Unspecified abdominal pain] Onset: 12-04-2023 12-07-2023 Episodic Early or threatened labor (7 sources) False labor; Translations: [False labor, unspecified] Onset: 04-11-2024 05-20-2024 Episodic distress and abnormal forces of labor (4 sources) Liveborn with labor distress; Translations: [Labor and delivery complicated by stress, unspecified] Onset: 04-24-2024 05-20-2024 Episodic Immunizations and screening for infectious disease (1 source) Encounter for immunization; Translations: [Encounter for immunization] Onset: 01-18-2024 Episodic Other circulatory disease (1 source) Elevated blood-pressure reading, without diagnosis of hypertension; Translations: [Elevated blood-pressure reading, without diagnosis of hypertension] Onset: 04-28-2024 Episodic Other complications of (1 source) Supervision of with other poor reproductive or obstetric history, third trimester; Translations: [Supervision of with other poor reproductive or obstetric history, third trimester] Onset: 05-07-2024 Episodic Other complications of (2 sources) Supervision of with other poor reproductive or obstetric history, unspecified trimester; Translations: [Supervision of with other poor reproductive or obstetric history, unspecified trimester] Onset: 03-25-2024 Episodic Other complications of (2 sources) Supervision of high risk , unspecified, third trimester; Translations: [Supervision of high risk , unspecified, third trimester] Onset: 03-25-2024 Episodic Other complications of (1 source) Supervision of high risk , unspecified, unspecified trimester; Translations: [Supervision of high risk , unspecified, unspecified trimester] Onset: 01-29-2024 Episodic Other complications of (1 source) Other specified related conditions, second trimester; Translations: [Other specified related conditions, second trimester] Onset: 12-19-2023 Episodic Other screening for suspected conditions (not mental disorders or infectious disease) (2 sources) Encounter for screening for malignant neoplasm of cervix; Translations: [Encounter for screening for diabetes mellitus] Onset: 02-08-2024 Episodic Residual codes; unclassified (2 sources) History of uterine scar from previous surgery; Translations: [History of uterine scar from previous surgery] Onset: 04-24-2024 Episodic Residual codes; unclassified (1 source) 40 weeks gestation of ; Translations: [40 weeks gestation of ] Onset: 04-28-2024 Episodic Residual codes; unclassified (1 source) 37 weeks gestation of ; Translations: [37 weeks gestation of ] Onset: 03-25-2024 Episodic Residual codes; unclassified (1 source) 36 weeks gestation of ; Translations: [36 weeks gestation of ] Onset: 03-18-2024 Episodic Residual codes; unclassified (1 source) 29 weeks gestation of ; Translations: [29 weeks gestation of ] Onset: 01-29-2024 Episodic Residual codes; unclassified (1 source) 26 weeks gestation of ; Translations: [26 weeks gestation of ] Onset: 01-18-2024 Episodic Residual codes; unclassified (1 source) 21 weeks gestation of ; Translations: [21 weeks gestation of ] Onset: 12-04-2023 Episodic Residual codes; unclassified (1 source) 14 weeks gestation of ; Translations: [14 weeks gestation of ] Onset: 11-09-2023 Episodic Screening and history of mental health and substance abuse codes (5 sources) Ex-cigar smoker; Translations: [Personal history of nicotine dependence] Onset: 01-29-2024 03-14-2024 Episodic Comment on above: smoked for 6 months, quit 09/2020 Results Test Name Value Interpretation Reference Range Facility PAP IG HPV APTIMA 16/18,45on 06-12-2024 ADEQ Comment Normal . [facility] Comment on above: Order Comment: Sarah grimm Comment: [id number] Specimen Comment: Source.............Cervix;Endocervix Specimen Comment: No. of containers..01 ThinPrep Vial Result Comment: Sati sfactory for evaluation. No endocervical component is identified. Performed By: #### L 7400.0280 #### [facility] [address] [place], [address] COMM . Normal . [facility] Comment on above: Order Comment: Speci men Comment: [id number] Specimen Comment: Source.............Cervix;Endocervix Specimen Comment: No. of containers..01 ThinPrep Vial Performed By: #### L 7400.0280 #### [facility] [address] [place], [place], [address] COMMENT Comment Normal . [facility] Comment on above: Order Comment: Speci men Comment: [id number] Specimen Comment: Source.............Cervix;Endocervix Specimen Comment: No. of containers..01 ThinPrep Vial Result Comment: This liquid based ThinPrep(R) pap test was screened with the use of an image guided system. Performed By: #### L 7400.0280 #### [facility] [address] [place], [address] DIAG Comment Normal . [facility] Comment on above: Order Comment: Speci men Comment: [id number] Specimen Comment: Source.............Cervix;Endocervix Specimen Comment: No. of containers..01 ThinPrep Vial Result Comment: NEGA TIVE FOR INTRAEPITHELIAL LESION OR MALIGNANCY. Performed By: #### L 7400.0280 #### [facility] [address] [place], [address] HPV APTIMA, HR Negative Normal Negative [facility] Comment on above: Order Comment: Speci men Comment: [id number] Specimen Comment: Source.............Cervix;Endocervix Specimen Comment: No. of containers..01 ThinPrep Vial Result Comment: This nucleic acid amplification test detects fourteen high- risk HPV types (16,18,31,33,35,39,45,51,52,56,58,59,66,68) without differentiation. Performed By: #### L 7400.0280 #### [facility] [address] [place], [place], [id number] HPV Deb Rfx Comment Normal . [facility] Comment on above: Order Comment: Speci men Comment: [id number] Specimen Comment: Source.............Cervix;Endocervix Specimen Comment: No. of containers..01 ThinPrep Vial Result Comment: Crit eria not met, HPV Genotype not performed. Performed at: [facility] [address] [place], [place] [id number] [place] Scallop: Alfonso Middleton PhD, Phone: [phone] Performed at: [address] [id number] [place] Scallop: Luz Marina Damon MD, Phone: [phone] Performed at: =[address] [id number] Fisher Scallop: Luz Marina Damon MD, Phone: [phone] Performed By: #### L [id number] #### [facility] [address] [place], [address] PAPSMR Comment Normal . [facility] Comment on above: Order Comment: Speci men Comment: [id number] Specimen Comment: Source.............Cervix;Endocervix Specimen Comment: No. of containers..01 ThinPrep Vial Result Comment: The Pap smear is a screening test designed to aid in the detection of premalignant and malignant conditions of the uterine cervix. It is not a diagnostic procedure and should not be used as the sole means of detecting cervical cancer. Both false-positive and false-negative reports do occur. Performed By: #### L [id number] #### [facility] [address] [place], [address] PERFORM Comment Normal . [facility] Comment on above: Order Comment: Speci men Comment: [id number] Specimen Comment: Source.............Cervix;Endocervix Specimen Comment: No. of containers..01 ThinPrep Vial Result Comment: Mónica De La Torre, Grommet Man (ASCP) Performed By: #### L [id number] #### [facility] [address] [place], [place], [id number] Cervical or vaginal specimen microscopic examination by liquid based cytology (reportOrdered By: Agueda Leung on 06-06-2024 Cytology report Cyto stain.thin prep Doc (Cvx/Vag) Comment . [facility] Comment on above: Criteria not met, HP V Genotype not performed.Performed at: [address] [id number] Director: Alfonso Middleton PhD, Phone: [phone] at: [address] [id number] Director: Luz Marina Damon MD, Phone: [phone] at: =[address] [id number] Director: Luz Marina Damon MD, Phone: [phone] Cervical or vagninal specime n microscopic examination by cytology stain (reported asOrdered By: Agueda Leung on 06-06-2024 Cytology report Cyto stain Doc (Cvx/Vag) Comment . [facility] Comment on above: The Pap smear is a s creening test designed to aid in thedetection of premalignant and malignant conditions of theuterine cervix. It is not a diagnostic procedure andshould not be used as the sole means of detecting cervicalcancer. Both false-positive and false-negative reports dooccur. Core Machine Tender Cyto stain Nom (C vx/Vag) [ID]Ordered By: Agueda Leung on 06-06-2024 Pap Smear Performed By Comment . [facility] Comment on above: Valentine De La Torre, Cyto technologist (ASCP) Cytology report Cyto stain D oc (Cvx/Vag)Ordered By: Agueda Leung on 06-06-2024 Thin Prep Pap Smear Comment . [place] Comment on above: The Pap smear is a s creening test designed to aid in thedetection of premalignant and malignant conditions of theuterine cervix. It is not a diagnostic procedure andshould not be used as the sole means of detecting cervicalcancer. Both false-positive and false-negative reports dooccur. Cytology report Cyto stain.t hin prep Doc (Cvx/Vag)Ordered By: Agueda Leung on 06-06-2024 HPV Genotype Special Info Comment . [facility] Comment on above: Criteria not met, HP V Genotype not performed.Performed at: [address] [id number] Director: Alfonso Middleton PhD, Phone: [phone] at: [address] [id number] Director: Luz Marina Damon MD, Phone: [phone] at: [address] [id number] Director: Luz Marina Damon MD, Phone: [phone] Detection in cervical specim en of any of human papilloma virus (HPV) 16, 18, 31, 33,Ordered By: Agueda Leung on 06-06-2024 HPV 16+18+31+33+35+39+45+51+ 52+56+58+59+66+68 DNA Probe+sig amp Ql (Cvx) Negative Negative [facility] Comment on above: This nucleic acid am plification test detects fourteen high-risk HPV types (16,18,31,33,35,39,45,51,52,56,58,59,66,68)without differentiation. HPV 16+18+31+33+35+39+45+51+ 52+56+58+59+66+68 DNA Probe+sig amp Ql (Cvx)Ordered By: Agueda Leung on 06-06-2024 Human Papillomavirus High Risk Negative Negative [facility] Comment on above: This nucleic acid am plification test detects fourteen high-risk HPV types (16,18,31,33,35,39,45,51,52,56,58,59,66,68)without differentiation. Image-guided ThinPrep PapOrd ered By: Agueda Leung on 06-06-2024 Pap Smear Note Comment . [facility] Comment on above: This liquid based Th inPrep(R) pap test was screened withthe use of an image guided system. Image-guided liquid-based Pa pOrdered By: Agueda Leung on 06-06-2024 Pap Smear Diagnosis Comment . [place] Comment on above: NEGATIVE FOR INTRAEP ITHELIAL LESION OR MALIGNANCY. Laboratory - CytologyOrdered By: Agueda Leung on 06-06-2024 Core Machine Tender Cyto stain Nom (Cvx/Vag) [ID] Comment . [facility] Comment on above: Valentine De La Torre, Cyto technologist (ASCP) Laboratory - Miscellaneous t estsOrdered By: Agueda Leung on 06-06-2024 Service comment (Unsp spec) [Interp] . . [facility] No Panel InformationOrdered By: Agueda Leung on 06-06-2024 Pap Smear Specimen Adequacy Comment . [facility] Comment on above: Satisfactory for shorty luation. No endocervical component is identified. Contract Administrator Office Visit Reporton 06-06-2024 Contract Administrator Office Visit Report [facility] [address], [address] [place] [address] OFFICE VISIT Date of Service: 06/06/24 MR#: [id number] Acct: [id number] Name: JOEL HINTON Rep #: [id number] : 1995 Provider: LORI carrillo Age/Sex: 28/F Location: [facility] Status: Signed Intake Vital Signs 04/18/24 19:37 05/21/24 14:05 06/06/24 10:46 06/06/24 10:47 Height 5 ft 8 in 5 ft 8 in 5 ft 8 in 5 ft 8 in Weight: 311 lb 4 oz 312 lb 4 oz BMI 47.3 47.5 BP 122/72 H 118/86 H Blood Pressure Location Lt brachial Position Sitting Respiration 18 Pulse 100 Pulse Source Monitor Temp 96.1 F L Pulse Oximetry (%) 98 Oxygen Delivery Method room air Intake Visit Reasons: visit (obstetrics) Chief Complaint: pt here for 6 week visit. Resource Teacher Required: No Is patient in pain?: No Allergies coconut Allergy (Severe, Verified 06/06/24 10:46) Hives Medications ???Medication ???Instructions ???Recorded ???Confirmed ???Type -iron 29 mg-folate 1,700 ea PO 05/21/24 06/06/24 History mcg DFE tablet and dha capsule (Obstetrix DHA Duo) [facility] Medical History Supervision of high-risk History of miscarriage, currently intolerance to labor, delivered, current hospitalization Superficial varicosities Seasonal allergies Pre-conception counseling Anxiety Surgical History Status post section History of tonsillectomy Family History Grandfather Heart disease Depression Lung cancer Diabetes Paternal Father Diabetes Heart disease Depression Grandmother Breast cancer Diabetes Paternal Social History adopted: No household members: spouse and children current occupational status: employed current occupation: [employer] pets and animals: Yes (Avoid litterbox) pets and animals: cat(s) history of recent travel: Yes ([place]) out of state: Yes out of country: No sexually active: Yes Smoking Status: Never smoker Smokeless tobacco user: other alcohol intake: current alcohol intake frequency: holidays/special occasions only details: not while substance use type: does not use well-balanced diet: rarely or never caffeine: No eating out: 1-3 times/week during the past year weight has: remained stable what type of physical activity do you participate in: walking frequency: 1-2 times per week duration: 45-60 minutes/day darien/yazidism: Shinto seatbelt use: always do you feel safe at home: Yes additional social history: Moises- of [employer] History 2 Elective abortions Hx Para 1 Spontaneous abortions 1 Hx # Term Pregnancies Ectopic pregnancies Hx # Pregnancies Multiple births # of living children 1 Past Pregnancies Del. Date Name GA/Weeks Outcome Route Bth Weight Gen Labor Lgth Anesthesia Del Locatn Provider FOB 04/02/22 chemical 4 spontaneous 04/19/24 [place] Lexi Rene 41 live - full term 6lb 9oz Female spinal [facility] J[facility] Moises Delivery Date: 04/19/24 Last Updated by: Lesa Claudio, RN Emergent cs Depression Screen PHQ-2/9 PHQ-2 Over the last 2 weeks, how often have you been bothered by any of the following problems? 1. Little interest or pleasure in doing things: not at all 2. Feeling down, depressed, or hopeless: not at all Total score: 0 Post HPI Routine Follow-Up: Details: JOEL HINTON is a 28 year old who presents for her post visit. Infant Feeding: Breast Menses resumed: No Bow since delivery: No Emotional Support: Yes ROS Const Denies excessive sweating Card Reports system reviewed and no additional complaints, except as documented, Denies chest pain, Denies chest pain with activity, Denies edema, Denies leg edema and Denies palpitations Resp Reports system reviewed and no additional complaints, except as documented GI Reports system reviewed and no additional complaints, except as documented, Denies abdominal pain and Denies bloating Reports system reviewed and no additional complaints, except as documented, Denies difficulty voiding, Denies dysuria, Denies urinary frequency, Denies urinary incontinence, Denies urinary hesitancy, Denies urinary urgency, Denies vaginal discharge and Denies vaginal odor Musc Reports system reviewed and no additional complaints, except as documented Skin/Breast Reports system reviewed and no additional complaints, except as documented Neuro Yes system reviewed and no additional com (more content not included)... Normal [facility] Service comment (Unsp spec) [Interp]Ordered By: Agueda Leung on 06-06-2024 Pap Smear Comment (3) . . [facility] Internal Medicine Office Vis viki 05-20-2024 Internal Medicine Office Visit [facility] [address] [place] [address] [address] [place], [place] [address] OFFICE VISIT Date of Service: 05/21/24 MR#: [id number] Acct: [id number] Name: JOEL HINTON Rep #: [id number] : 1995 Provider: Dr. Emilia corrigan MD Age/Sex: 28/F Location: [facility] Status: Signed Intake Vital Signs 02/29/24 15:03 05/02/24 13:35 05/21/24 14:05 Height 5 ft 8 in 5 ft 8 in 5 ft 8 in Weight: 311 lb 4 oz BMI 47.3 BP 122/72 H Blood Pressure Location Lt brachial Position Sitting Respiration 18 Pulse 100 Pulse Source Monitor Temp 96.1 F L Temp Source Temporal Pulse Oximetry (%) 98 Oxygen Delivery Method room air Intake Visit Reasons: Est Care, Sees other BMS Chief Complaint: establishing care Resource Teacher Required: No Accompanied by: Self Is patient in pain?: No Allergies coconut Allergy (Severe, Verified 05/21/24 13:58) Hives Medications ???Medication ???Instructions ???Recorded ???Confirmed ???Type -iron 29 mg-folate 1,700 ea PO 05/21/24 05/21/24 History mcg DFE tablet and dha capsule (Obstetrix DHA Duo) Have you fallen in the past year?: No Nurse's Note: would like to discuss some healthy lifestyle weight management [facility] Medical History (Updated 05/21/24 @ 16:[address] Emilia Cason MD) Supervision of high-risk History of miscarriage, currently intolerance to labor, delivered, current hospitalization Superficial varicosities Seasonal allergies Pre-conception counseling Anxiety Surgical History Status post section History of tonsillectomy Family History (Updated 05/21/24 @ 14:[address] Emilia Cason MD) Grandfather Heart disease Depression Lung cancer Diabetes Paternal Father Diabetes Heart disease Depression Grandmother Breast cancer Diabetes Paternal Social History (Updated 05/21/24 @ 14:[address] Emilia Cason MD) adopted: No household members: spouse and children current occupational status: employed current occupation: [employer] pets and animals: Yes (Avoid litterbox) pets and animals: cat(s) history of recent travel: Yes ([place]) out of state: Yes out of country: No sexually active: Yes Smoking Status: Never smoker Smokeless tobacco user: other alcohol intake: current alcohol intake frequency: holidays/special occasions only details: not while substance use type: does not use well-balanced diet: rarely or never caffeine: No eating out: 1-3 times/week during the past year weight has: remained stable what type of physical activity do you participate in: walking frequency: 1-2 times per week duration: 45-60 minutes/day darien/yazidism: Shinto seatbelt use: always do you feel safe at home: Yes additional social history: Moises- [employer] of [employer] Female Reproductive History Menstrual Ab spontaneous: 1 HPI HPI Chief Complaint: establishing care Details: JOEL HINTON, is a 28 F who presents to the office today to establish care. She hasn't had a PCP for several years. She is not due for any routine blood work. She is due for a pap smear and follows with OBGYN. She doesn't want any COVID vaccines. She is otherwise up to date on her immunizations. She doesn't smoke and doesn't take any prescription medications. She reports she is not eating very healthy and hasn't been staying active over the last few months. The patient is 1 month post . She was induced at 41 weeks. She had to do an emergency c- section due to decelerations. The surgery went well without complications. Her daughter has reflux, but is otherwise doing well. The patient did a questionnaire at her daughter's life advisor's office and was told they were concerned she had some post anxiety. She was encouraged to speak with her OB. She does admit to a history of anxiety and depression since she was a child. She previously did therapy which was beneficial for her. She has never been on any medications. She does have a local counselor at the [employer], but hasn't seen her recently. She has a good support system. The patient reports she wants to get into healthier habits in order to benefit her daughter. ROS Const Constitutional: Positive for fatigue and headache(s); No body ache, excessive sweating, fever(s), frequent falls, snoring, weakness, weight change, sleep problems or change in appetite Eyes Eyes: No blurry vision, change in vision, eye pain or Light sensitivity ENT ENT: Positive for headache(s) and other (grinding teeth); No abnormal hearing, ear or mastoid pain, tinnitus, nasal congestion, neck pain or sore throat Resp Respiratory: No cough, shortness of breath, snoring or wheezing Cardio Cardiology: (more content not included)... Normal [facility] Contract Administrator Office Visit Reporton 05-02-2024 Contract Administrator Office Visit Report [facility] [address], [address] [place] [address] OFFICE VISIT Date of Service: 05/02/24 MR#: [id number] Acct: [id number] Name: JOEL HINTON Rep #: [id number] : 1995 Provider: LORI Winston ams Age/Sex: 28/F Location: [facility] Status: Signed Intake Vital Signs 04/18/24 19:37 04/24/24 09:27 05/02/24 13:35 Height 5 ft 8 in 5 ft 8 in 5 ft 8 in Weight: 311 lb 6 oz BMI 47.3 BP 122/82 H Intake Visit Reasons: 2 wk incision check Chief Complaint: 2wk Incision Check Is patient in pain?: No Allergies coconut Allergy (Severe, Verified 05/02/24 13:42) Hives Medications ???Medication ???Instructions ???Recorded ???Confirmed ???Type PNV 178-FA 180 mcg-om3 35 mg-dha 1 tab PO DAILY 09/07/23 05/02/24 History 25 mg-epa 5 mg-fish oil chew tablet pyridoxine (vitamin B6) 25 mg 25 mg PO DAILY 09/07/23 05/02/24 H istory tablet acetaminophen 325 mg tablet 325 mg PO Q6H PRN 12/04/23 5 History (Tylenol) ibuprofen 800 mg tablet 800 mg PO Q8H PRN pain #30 tabs 05/02/24 Rx oxycodone-acetaminop hen 5 mg-325 1 tab PO Q4H PRN pain 7 days #20 0 04/19/24 05/02/24 Rx mg tablet (Percocet) tabs : Yes PFSH Medical History Superficial varicosities Seasonal allergies Pre-conception counseling Encounter for Nexplanon removal Anxiety Surgical History History of tonsillectomy Family History Grandfather Heart disease Depression Lung cancer Diabetes Paternal Father Diabetes Heart disease Depression Grandmother Breast cancer Diabetes Paternal Mother Heart palpitations Social History adopted: No household members: spouse current occupational status: employed current occupation: [employer] pets and animals: Yes (Avoid litterbox) pets and animals: cat(s) history of recent travel: Yes ([place]) out of state: Yes out of country: No sexually active: Yes Smoking Status: Never smoker Smokeless tobacco user: other alcohol intake: current alcohol intake frequency: holidays/special occasions only details: not while substance use type: does not use well-balanced diet: rarely or never caffeine: No eating out: 1-3 times/week during the past year weight has: remained stable what type of physical activity do you participate in: walking frequency: 1-2 times per week duration: 45-60 minutes/day darien/yazidism: Shinto seatbelt use: always do you feel safe at home: Yes additional social history: Moises- [employer] History 2 Elective abortions Hx Para 1 Spontaneous abortions 1 Hx # Term Pregnancies Ectopic pregnancies Hx # Pregnancies Multiple births # of living children 1 Past Pregnancies Del. Date Name GA/Weeks Outcome Route Bth Weight Gen Labor Lgth Anesthesia Del Locatn Provider FOB 04/02/22 chemical 4 spontaneous 04/19/24 Cole López 41 live - full term 6lb 9oz Female spinal [facility] Moises Delivery Date: 04/19/24 Last Updated by: Lesa Snyder RN Emergent cs Depression Screen PHQ-2/9 PHQ-2 Over the last 2 weeks, how often have you been bothered by any of the following problems? 1. Little interest or pleasure in doing things: several days 2. Feeling down, depressed, or hopeless: not at all Total score: 1 Post HPI 2 wk incision check: Details: JOEL HINTON is a 28 year old who presents for 2 week incision check. Infant Feeding: Breast Menses resumed: No Bow since delivery: No Emotional Support: Yes ROS Const All systems reviewed are unremarkable except as noted in H Reports system reviewed and no additional complaints, except as documented Card Reports system reviewed and no additional complaints, except as documented GI Reports system reviewed and no additional complaints, except as documented Neuro Yes system reviewed and no additional complaints, except as documented Psych Reports system reviewed and no additional complaints, except as documented, Denies anhedonia, Denies depression, Denies homicidal ideation and Denies suicidal ideation Exam Const General: cooperative, healthy appearing and comfortable Nutritional Appearance: average body habitus Orientation: alert, awake and oriented x3 Neck Neck: normal visual inspection and full ROM Resp Effort Inspection: normal respiratory effort, able to speak in complete sentences and symmetric chest movement GI Inspection: normal to inspection and incision (well healed) Palpation: soft (more content not included)... Normal [facility] CBC-Complete Blood Cnt No Di ffon 04-20-2024 Erythrocyte distribution width (RBC) [Ratio] 15.5 % High 11.6-14.6 [facility] Comment on above: Order Comment: Comme nts: Day #1 Reason for Laboratory Test Performed By: #### L 100.0500 #### [facility] [address] [place], [address] Hematocrit (Bld) [Volume fraction] 32.5 % Low 37-47 [facility] Comment on above: Order Comment: Comme nts: Day #1 Reason for Laboratory Test Performed By: #### L 100.0500 #### [facility] [address] [place], [address] Hemoglobin (Bld) [Mass/Vol] 10.9 g/dL Low 12.0-15.0 [facility] Comment on above: Order Comment: Comme nts: Day #1 Reason for Laboratory Test Performed By: #### L 100.0500 #### [facility] [address] [place], [address] MCH (RBC) [Entitic mass] 28.8 pg Normal 27.0-32.0 [facility] Comment on above: Order Comment: Comme nts: Day #1 Reason for Laboratory Test Performed By: #### L 100.0500 #### [facility] [address] [place], [address] MCHC (RBC) [Mass/Vol] 33.5 g/dL Normal 32-36 [facility] Comment on above: Order Comment: Comme nts: Day #1 Reason for Laboratory Test Performed By: #### L 100.0500 #### [facility] [address] [place], [address] MCV (RBC) [Entitic vol] 85.8 fL Normal 81-99 [facility] Comment on above: Order Comment: Comme nts: Day #1 Reason for Laboratory Test Performed By: #### L 100.0500 #### [facility] [address] [place], [address] Platelet mean volume (Bld) [Entitic vol] 10.3 fL Normal 6.2-12.0 [facility] Comment on above: Order Comment: Comme nts: Day #1 Reason for Laboratory Test Performed By: #### L 100.0500 #### [facility] [address] [place], [address] Platelets (Bld) [#/Vol] 224 10*3/uL Normal 150-450 [facility] Comment on above: Order Comment: Comme nts: Day #1 Reason for Laboratory Test Performed By: #### L 100.0500 #### [facility] [address] [place], [address] RBC (Bld) [#/Vol] 3.79 10*6/uL Low 4.2-5.4 [place] Comment on above: Order Comment: Comme nts: Day #1 Reason for Laboratory Test Performed By: #### L 100.0500 #### [facility] [address] [place], [address] RDW SD 47.8 fl High 35.1-43.9 [facility] Comment on above: Order Comment: Comme nts: Day #1 Reason for Laboratory Test Performed By: #### L 100.0500 #### [facility] [address] [place], [address] WBC (Bld) [#/Vol] 13.7 10*3/uL High 4.4-11.0 [place] Comment on above: Order Comment: Comme nts: Day #1 Reason for Laboratory Test Performed By: #### L 100.0500 #### [facility] [address] [place], [address] Erythrocyte distribution wid th ratioOrdered By: Verónica Vega on 04-20-2024 Erythrocyte distribution width (RBC) [Ratio] 15.5 % High 11.6-14.6 [facility] Erythrocyte distribution wid th standard deviationOrdered By: Verónica Vega on 04-20-2024 Erythrocyte distribution width (RBC) [Entitic vol] 47.8 fL High 35.1-43.9 [facility] Hematocrit Auto (Bld) [Volum e fraction]Ordered By: Verónica Vega on 04-20-2024 Hematocrit (Bld) [Volume fraction] 32.5 % Low 37-47 [facility] Hemoglobin measurementOrdere d By: Verónica Vega on 04-20-2024 Hemoglobin (Bld) [Mass/Vol] 10.9 g/dL Low 12.0-15.0 [facility] MCV (mean corpuscular volume ) determinationOrdered By: Verónica Vega on 04-20-2024 MCV (RBC) [Entitic vol] 85.8 fL 81-99 [facility] Mean corpuscular hemoglobin (MCH) determinationOrdered By: Verónica Vega on 04-20-2024 MCH (RBC) [Entitic mass] 28.8 pg 27.0-32.0 [facility] Mean corpuscular hemoglobin concentration (MCHC) determinationOrdered By: Verónica Vega on 04-20-2024 MCHC (RBC) [Mass/Vol] 33.5 g/dL 32-36 [facility] Mean platelet volume determi nationOrdered By: Verónica Vega on 04-20-2024 Platelet mean volume (Bld) [Entitic vol] 10.3 fL 6.2-12.0 [facility] Platelet countOrdered By: Carlos Vega on 04-20-2024 Platelets (Bld) [#/Vol] 224 10*3/uL 150-450 [facility] RBC Auto (Bld) [#/Vol]Ordere d By: Verónica Vega on 04-20-2024 RBC (Bld) [#/Vol] 3.79 10*6/uL Low 4.2-5.4 [place] White blood cell (WBC) count Ordered By: Verónica Vega on 04-20-2024 WBC (Bld) [#/Vol] 13.7 10*3/uL High 4.4-11.0 [place] Discharge Instructionon 03-27 Discharge Instruction [facility] Medical Records Department [address] [place] [address] Instructions for Home/Discharge Instructions 04/19/24 0629 MR#: [id number] Acct: [id number] Name: JOEL HINTON Rep #: [id number] : 1995 28 From: Verónica Mars DO PCP: Dr. Joel Damon MD Status:ADM IN Discharge Instructions Diet Discharge Diet: No restrictions DC O2, CPAP, BIPAP needs Home O2 Discharge instructions: No Dressing / Incision Discharge Activity: May Not Drive (for 2 weeks or while taking narcotic pain medications.), May Shower and May Take a Tub Bath (in 7 days.) May resume sexual activity in: 4-6 weeks Weight Bearing Status: Full weight bearing Lifting Restrictions: 20 pounds Dressing / Incision Call your doctor if your incision/area has: Continuous Slow Oozing, Sudden Increased Bleeding, Increased Pain/ Swelling, Increased Redness and Foul Smelling Discharge Call your doctor if you observe: Fever of 101 or Higher and Using more than 1 pad per hour Suture Line Care: Avoid Pulling/Pushing and Avoid Pinching/Bending Cleanse incision/area with: Soap Water and Keep Dressing Clean Dry Follow Up Care Please Follow Up With: Verónica Mars DO When: Call [phone] to make an appointment for an incision check in 1-2 weeks. Test Results: Test results from this visit will be discussed in further detail at your follow-up appointment, if applicable. Discharge Plan Admission Admit Date/Time: 04/18/24 19:10 Primary Reason for Your Visit: section Attending Provider: Verónica Mars Primary Care Provider: Joel Damon Discharge Orders/Prescriptions Prescriptions: New ibuprofen 800 mg tablet 800 mg PO Q8H PRN (Reason: pain) Qty: 30 0RF oxycodone-acetaminop hen [Percocet] 5-325 mg tablet 1 tab PO Q4H PRN (Reason: pain) 7 Days Qty: 20 0RF Rx Instructions: 1-2 tabs q 4 hrs as needed for pain Continued PNV no.[id number]-ep a-fish 180 mcg-35 mg- 25 mg-5 mg tablet,chewable 1 tab PO DAILY pyridoxine (vitamin B6) 25 mg tablet 25 mg PO DAILY acetaminophen [Tylenol] 325 mg tablet 325 mg PO Q6H PRN Referrals / Follow Up: Joel Damon MD [Primary Care Provider] - Disposition Disposition (needs filled in before D/C Order can be placed): Home, Self Care 04/19/24 0631 Verónica Mars DO CC: Dr. Joel Damon MD Signed Normal [facility] Operative Reporton Operative Report [facility] Medical Records Department [address] [place] [address] Operative Report 04/19/24 0608 MR#: [id number] Acct: [id number] Name: JOEL HINTON Rep #: [id number] : 1995 28 From: Verónica Mars DO PCP: Dr. Joel Damon MD Status:ADM IN Location: [id number] Assessment Plan (1) intolerance to labor, delivered, current hospitalization: (2) Elevated blood pressure reading: COMMENT: pre-e labs sent with admission labs. noah (3) Encounter for induction of labor: COMMENT: postdates induction. cytotec (4) Morbid obesity with BMI of 45.0-49.9, adult: COMMENT: BMI 48 at NOB wkly BPP at 36 wk and growth US at 32 and 36wk (5) History of miscarriage, currently : COMMENT: 03/17 chemical (6) Supervision of high-risk : QUALIFIERS: Trimester: third trimester Qualified Code(s): O09.93 - Supervision of high risk , unspecified, third trimester COMMENT: PRR , LING 04/11/24, Moises (7) : QUALIFIERS: Weeks of gestation: 40 weeks Qualified Code(s): Z3A.40 - 40 weeks gestation of COMMENT: GBS neg, NIPT low risk, discussed carrier testing Maternal Data Information LING Calculator Estimated Delivery Date Method Current WG Current Estimate 04/11/24 LMP (Certain) 41w 1d Final LING: 04/11/24 Final LING Source: LMP Gestational age: 41 weeks 1 day Ideal Doctor Who Attended Delivery: Anny Branch Operative Report (OB) Cecarean Details Procedure Type: low transverse Date of Procedure: 04/19/24 Procedure Start Time: 05:14 Procedure Stop Time: 05:59 Time of Delivery: 05:20 Pre-Operative Diagnosis: Distress and Nonreassuring Status Post-Operative Diagnosis: Same as Pre-operative diagnosis Classification: GEE Type of Anesthesia: Spinal Antibiotic Given: Ancef 2 grams IV x1 and Zithromax 500 mg/5 mL X1 Drain: Ferraro to straight drain Estimated Blood Loss: 800cc Findings Description of surgery: The patient was admitted to [facility] for duction of labor for 41-week gestation. The induction was started at 7 PM with Cytotec. By 1053 she started to show 62nd long decelerations that were late in appearance. At 2 AM she received a second dose of Cytotec and just prior to 4 AM deep variable decelerations were noted. The patient made rapid change to 6 cm membranes were ruptured and internal monitor was placed and amnioinfusion was started. Prolonged decelerations were then noted and an JOSE was called. Once moved to the OR it was apparent that the heart rate variable decels were improved and the heart rate was back up to 130's, however this did not resolve the late decelerations. Thick meconium stained fluid was also present at this time and the diagnosis of likely distress was made. The decision was made to proceed with an urgent section. Epidural anesthesia was in place Ferraro catheter was already in placed. The patient was placed in the dorsal supine position with leftward tilt. Patient was prepped and draped in the normal sterile fashion. Pfannenstiel skin incision was made with the scalpel and carried through to the underlying layer of fascia with the scalpel. Fascia was nicked in the midline and the incision extended laterally. The rectus bellies were dissected off superiorly and inferiorly with out complication both sharply and bluntly. The peritoneum was entered digitally. The incision was stretched and a low transverse uterine incision was made with the scalpel. The infant's head was delivered atraumatically followed by the anterior and posterior shoulders without complication the rest of the delivered. The infant was noted to be pale and limp but made effort to cry after a few seconds. The cord was quickly clamped and cut and the infant was handed off to awaiting nurse. The placenta was delivered spontaneously immediately following and was noted to be intact and have a three-vessel cord but stained with meconium fluid and appeared small. The uterus was exteriorized cleared of all clots and debris, and the incision was closed in a double layer closure using #1 Vicryl followed by Monocryl. The ovaries and fallopian tubes were noted to be within normal limits. The uterus was returned to the maternal abdomen and gutters were cleared of all clots and debris. The peritoneum was closed with 3-0 Monocryl in a running fashion. Gloves were changed prior to fascial closure. The fascia was injected with Exparel plus 0.25 plain bupivacaine. Fascia was closed with 0 PDS in a running fashion. Subcutaneous tissue was copiously irrigated and the skin was closed with 3-0 Monocryl in a subcuticular fashion. Mepilex dressing was applied without complication. Patient was taken to recovery in stable condition. Surgical findings: intolerance to labor with thick meconi (more content not included)... Normal [facility] Pathology Specimen OBon 03-27 PATH. Spec OB SEE PATHOLOGY REPORT Normal [facility] Comment on above: Order Comment: Send Specimen For (Specify): Studies @ [facility] Lab:Routine Time of Procedure: 0600 Date of Procedure: 04/19/24 Reason specimen being sent to pathology (Hx/complications): routine Type of specimen: Placenta Type of procedure performed: Primary Section Result Comment: Spec imen submitted to Anatomical Pathology Department for testing. Performed By: #### L 350.1800 #### [facility] [address] [place], [address] Procedure Reporton Procedure Report [facility] Medical Records Department [address] [place] [address] Procedure Report 04/19/24 0607 MR#: [id number] Acct: [id number] Name: JOEL HINTON Rep #: [id number] : 1995 28 From: Agueda Leung CNM PCP: Dr. Joel Damon MD Status:ADM IN Location: [id number] Procedures Urinary/Genital 52xxx-59xxx: 92880 Delivery global pkg (first asssit CNM) Non-invasive Procedural Procedure Information Date of Procedure: 04/19/24 Pre-Procedure Diagnosis: see problem list Procedure Performed:: CNM assistant librarian camp cook: Yes Hand Kiss Setter: madhu Tasks completed by assistant librarian: Retracting Description of procedure: I was present and assisted Dr. Mcknight From the start of the procedure to the end. I performed retraction, suture cutting, suction, and fundal pressure assistance during the procedure. The wound was dressed with silver Mepilex and the patient was brought to recovery in stable condition. See Dr. Mcknight Operative note for full details of the procedures. 04/19/24 06 Cosigner Signature (if applicable): CC: LORI Leung; Dr. Joel Damon MD; Dr. Verónica Mars DO Signed Normal [facility] Surgery Specimen Level Von 0 04-19-2024 Surgery Specimen Level V ----- Patient Age/Sex Location Account Attending Physician JOEL HINTON [id number] Dr. Verónica Mars, Lukas Specimen: [id number] Received: 04/19/24 Status: GINGER Travis Num: [id number] Spec Type: PLACENTA Subm Dr: Dr. Verónica Mars, DO HEADER OPERATION: Primary section PRE-OP DIAGNOSIS: Routine TISSUE SUBMITTED: Placenta MICROSCOPIC DIAGNOSIS Placenta, Section: 1. Placenta, 428 g, 10-25th percentile for 41 weeks gestational age 2. Membranes: No chorioamnionitis or meconium [id number] 3. Cord: 3 Vessel, No funisitis 4. Disk: Villi of appropriate maturity for gestational age, tiny infarcts, calcification , [id number] MICROSCOPIC DESCRIPTION Slides are reviewed. GROSS DESCRIPTION SPECIMEN: PLACENTA / CLINICAL INFORMATION: A. Weight: 2.75 kg B. Gestational Age: 41 weeks C. Sex: Female PLACENTAL WEIGHT (POST FIXATION): 428 gm PLACENTAL DIMENSIONS: 16 x 14 x 4 cm PLACENTAL SHAPE: Usual ovoid PLACENTAL WEIGHT FOR GESTATIONAL AGE: Within 10-99th percentile (over/under percentile) MEMBRANES - Present A. Insertion: Marginal B. Site of rupture from edge: Membranes are fragmented. Distance of rupture can not be assessed due to fragmentated nature of the specimen. Membranes do not appear to be complete. C. Color of membrane: Mucoidy D. Abnormalities: None UMBILICAL CORD - Present A. Color: Ortega-chandler B. Insertion: Marginal C. Length: 47 cm Patient Age/Sex Location Account Attending Physician JOEL HINTON / [id number] Lukas Huntley D. Diameter: 1.1 cm E. Number of vessels: Three F. Abnormalities: None PLACENTAL DISC - Present A. Color of surface: Ortega-chandler B. surface abnormalities: None C. Maternal cotyledons: Intact with minimal tears D. Attached retro placental clot: No clot E. Cut surface: Dark red and spongy F. Lesions: Sections reveal two ortega indurated lesions each measuring 0.5cm in greatest dimension. The lesions are noted at the peripheral portion of the placenta. G. Separate clot: Absent SECTIONS SUBMITTED: (6 cassettes) 1. Membrane roll 2. Cord, maternal end, lesion 3. Cord, end, lesion 4. Placental disc, and maternal surfaces 5. Placental disc, and maternal surfaces 6. Placental disc, and maternal surfaces SJ 04/21/2024 TC:5 CPT: 81708 Patient Age/Sex Location Account Attending Physician JOEL HINTON WP [id number] Lukas Huntley Signed (signature on file) Dr. Bola Daigle MD 04/22/242055 [facility] Comment on above: Performed By: #### P SUV ####[facility] [address] [place], [address] AST(SGOT)Ordered By: Agueda Leung on 04-18-2024 AST [Catalytic activity/Vol] 13 U/L Low 15-37 [facility] Comment on above: Performed By: #### L 501.0900, L501.4100, L501.1105, L400.0001, L501.1400, L501.4405 ####[facility] [address] [place], [address] Absolute neutrophil countOrd ered By: Agueda Leung on 04-18-2024 Neutrophils (Bld) [#/Vol] 8.3 10*3/uL High 2.0-7.7 [facility] Automated lymphocyte count a s percentage of total leukocytesOrdered By: Agueda Leung on 04-18-2024 Lymphocytes/100 WBC (Bld) 19.1 % Normal 19-41 [facility] Comment on above: Performed By: #### B TS, L100.0100 #### [facility] [address] [place], [place], [address] Bacteria LM.HPF (Urine sed) [#/Area]Ordered By: Agueda Leung on 04-18-2024 Urine Bacteria RARE /hpf None Seen [facility] Basophil percentageOrdered B y: Agueda Leung on 04-18-2024 Basophils/100 WBC (Bld) 0.4 % Normal 0-1 [facility] Comment on above: Performed By: #### B TS, L100.0100 #### [facility] [address] [place], [place], [address] Bilirubin Test strip Ql (U)O rdered By: Agueda Leung on 04-18-2024 Bilirubin Ql (U) Negative Negative [facility] CBC W/Diff, Automatedon - Absolute Lymph 2.25 X10 3/uL Normal 0.83-4.51 [facility] Comment on above: Performed By: #### B TS, L100.0100 #### [facility] [address] [place], [address] Absolute Neut 8.3 X10 3/uL High 2.0-7.7 [facility] Comment on above: Performed By: #### Marbella JACKSON, L100.0100 #### [facility] [address] [place], [address] Erythrocyte distribution width (RBC) [Ratio] 15.0 % High 11.6-14.6 [facility] Comment on above: Performed By: #### Marbella JACKSON, L100.0100 #### [facility] [address] [place], [address] Hematocrit (Bld) [Volume fraction] 36.8 % Low 37-47 [facility] Comment on above: Performed By: #### Marbella JACKSON, L100.0100 #### [facility] [address] [place], [address] Hemoglobin (Bld) [Mass/Vol] 12.2 g/dL Normal 12.0-15.0 [facility] Comment on above: Performed By: #### Marbella JACKSON, L100.0100 #### [facility] [address] [place], [address] IG% 0.900 Normal 0.0-0.9 [facility] Comment on above: Result Comment: IG% - Immature Granulocytes (promyelocytes, myelocytes and metamyelocytes) > 1% indicates that a LEFT SHIFT is Present. Performed By: #### B MANUEL, L100.0100 #### [facility] [address] [place], [address] MCH (RBC) [Entitic mass] 28.1 pg Normal 27.0-32.0 [facility] Comment on above: Performed By: #### Marbella JACKSON, L100.0100 #### [facility] [address] [place], [address] MCHC (RBC) [Mass/Vol] 33.2 g/dL Normal 32-36 [facility] Comment on above: Performed By: #### Marbella JACKSON, L100.0100 #### [facility] [address] [place], [address] MCV (RBC) [Entitic vol] 84.8 fL Normal 81-99 [facility] Comment on above: Performed By: #### Marbella JACKSON, L100.0100 #### [facility] [address] [place], [address] Nucleated RBC (Bld) [#/Vol] 0 10*3/uL Normal 0-5 [facility] Comment on above: Performed By: #### Marbella JACKSON, L100.0100 #### [facility] [address] [place], [address] Platelet mean volume (Bld) [Entitic vol] 10.6 fL Normal 6.2-12.0 [facility] Comment on above: Performed By: #### Marbella JACKSON, L100.0100 #### [facility] [address] [place], [address] Platelets (Bld) [#/Vol] 268 10*3/uL Normal 150-450 [facility] Comment on above: Performed By: #### Marbella JACKSON, L100.0100 #### [facility] [address] [place], [address] RBC (Bld) [#/Vol] 4.34 10*6/uL Normal 4.2-5.4 [place] Comment on above: Performed By: #### Marbella JACKSON, L100.0100 #### [facility] [address] [place], [address] RDW SD 45.5 fl High 35.1-43.9 [facility] Comment on above: Performed By: #### Marbella JACKSON, L100.0100 #### [facility] [address] [place], [address] WBC (Bld) [#/Vol] 11.8 10*3/uL High 4.4-11.0 [facility] Comment on above: Performed By: #### B , L100.0100 #### [facility] [address] [place], [address] Eosinophil percentageOrdered By: Agueda Leung on 04-18-2024 Eosinophils/100 WBC (Bld) 0.7 % Normal 0-5 [facility] Comment on above: Performed By: #### B , L100.0100 #### [facility] [address] [place], [address] Epithelial cells.squamous LM Ql (Urine sed)Ordered By: Agueda Leung on 04-18-2024 Epithelial cells.squamous LM.HPF (Urine sed) [#/Area] 0 /[HPF] 5-10 [facility] Estimated glomerular filtrat ion rate (GFR) AmericanOrdered By: Agueda Leung on 04-18-2024 Estimated GFR (MDRD) Amer 137 mL/min >60 [facility] Comment on above: GFR Calc Estimation of creatinine manuel aranceOrdered By: Agueda Leung on 04-18-2024 Estimated Creatinine Clearance Calc 201.47 ml/min [facility] Glomerular filtration rate ( GFR) estimationOrdered By: Agueda Leung on 04-18-2024 Estimated GFR (MDRD) Non-Af Amer 113 mL/min >60 [facility] Comment on above: Non- GFR Calc Glucose Ql (U)Ordered By: Daphne Leung on 04-18-2024 Urine Glucose (UA) Normal mg/dl Normal [facility] H AND P Exam - OB/GYNon 03-27 H&P Exam - SENIOR HEALTH EDUCATOR [facility] Medical Records Department [address] [place] [address] H P Exam - SENIOR HEALTH EDUCATOR 04/18/242042 MR#: [id number] Acct: [id number] Name: JOEL HINTON Rep #: [id number] : 1995 28 From: Agueda Leung CNM PCP: Dr. Joel Damon MD Status:ADM IN Location: [id number] HPI - General General Date of Admission: 04/18/24 HPI Narrative JOEL HINTON, is a 28 F who presents at 41 weeks for induction of labor for postdates. denies walker/visual changes or ruq pain. elevated bp x 2 on admission. Maternal Data Information LING Calculator Estimated Delivery Date Method Current WG Current Estimate 04/11/24 LMP (Certain) 41w 0d PFSH PFSH Medical History (Updated 04/18/24 @ 20:45 by Agueda Leung CNM) Superficial varicosities Seasonal allergies Pre-conception counseling Encounter for Nexplanon removal Anxiety Home Medications ???Medication ???Instructions ???Recorded ???Last Taken ???Type PNV 178-FA 180 mcg-om3 35 mg-dha 1 tab PO DAILY 09/07/23 04/18/24 07:30 History 25 mg-epa 5 mg-fish oil chew tablet pyridoxine (vitamin B6) 25 mg 25 mg PO DAILY 09/07/23 Unknown History tablet acetaminophen 325 mg tablet 325 mg PO Q6H PRN 12/04/23 Unknown History (Tylenol) Allergy/AdvReac Type Severity Reaction Status Date / Time coconut Allergy Severe Hives Verified 04/15/24 13:43 Family History Grandfather Heart disease Depression Lung cancer Diabetes Paternal Father Diabetes Heart disease Depression Grandmother Breast cancer Diabetes Paternal Mother Heart palpitations Surgical History History of tonsillectomy Social History adopted: No household members: spouse current occupational status: employed current occupation: [employer] pets and animals: Yes (Avoid litterbox) pets and animals: cat(s) history of recent travel: Yes ([place]) out of state: Yes out of country: No sexually active: Yes Smoking Status: Never smoker Smokeless tobacco user: other alcohol intake: current alcohol intake frequency: holidays/special occasions only details: not while substance use type: does not use well-balanced diet: rarely or never caffeine: No eating out: 1-3 times/week during the past year weight has: remained stable what type of physical activity do you participate in: walking frequency: 1-2 times per week duration: 45-60 minutes/day darien/yazidism: Shinto seatbelt use: always do you feel safe at home: Yes additional social history: [place]- [employer] History 2 Elective abortions Hx Para 0 Spontaneous abortions 1 Hx # Term Pregnancies Ectopic pregnancies Hx # Pregnancies Multiple births # of living children 0 Past Pregnancies Del. Date Name GA/Weeks Outcome Route Bth Weight Gen Labor Lgth Anesthesia Del Locatn Provider FOB Unknown 03/02/23 chemical 4 spontaneous Visit Details Expected Delivery Route/Plan Labor Preferences- CB/BF classes: yes labor support person: Moises labor intervention preferences: [] pain management options preferred: epidural cut cord/dad catch: maybe : yes PP control planned: discussed discussed possible routes of delivery and associated risks: [] special requests: [] Plans Covid status: [] Flu vaccine: given Tdap vaccine: given Rhogam: na LARC form signed: yes Problem list reviewed and updated with the most current plan of care details and appropriate orders placed. Relevant counseling for the gestational age provided. Continue routine care and follow up unless otherwise noted in visit notes/problem list details OB Flowsheet Initial Weight: Not Recorded Date -???-???-???-???-??? -???-???-???-???-??? -???-???- EGA Weight BP Urine Prot -???-???-???-???-??? -???-???-???-???-??? -???-???- Glucose FHR FuHt Pres Dilation -???-???-???-???-??? -???-???-???-???-??? -???-???- Effaced St Visit Note 09/11/23 -???-???-???-???-??? -???-???-???-???-??? -???-???- 9w 4d 318 lb 318 lb 112/73 -???-???-???-???-??? -???-???-???-???-??? -???-???- 174 -???-???-???-???-??? -???-???-???-???-??? -???-???- KW- CRL cons with dates. To get NIPT and carrier order at next visit. 10/12/23 -???-???-???-???-??? -???-???-???-???-??? -???-???- 14w 0d 316 lb 6 oz 122/76 Negative -???-???-???-???-??? -???-???-???-???-??? -???-???- Negative 153 -???-???-???-???-??? -???-???-???-???-??? -???-???- JV- no compl aints today. needs work restriction letter. Needs box kit for NIPT and carrier testing. 11/09/23 -???-???-???-???-??? -???-?? (more content not included)... Normal [facility] Immature granulocytes/100 WB C Auto (Bld)Ordered By: Agueda Leung on 04-18-2024 Immature granulocytes/100 WBC (Bld) 0.900 % 0.0-0.9 [facility] Comment on above: IG% - Immature Granu locytes (promyelocytes, myelocytes and metamyelocytes) > 1% indicates that a LEFT SHIFT is Present. Ketones Test strip Ql (U)Ord ered By: Agueda Leung on 04-18-2024 Ketones Ql (U) Negative Negative [facility] L509.8000on 04-18-2024 Syphilis Abs Non-Reactive Normal [facility] Comment on above: Performed By: #### L 509.8000 #### [facility] [address] [place], [address] Lymphocytes Auto (Unsp spec) [#/Vol]Ordered By: Agueda Leung on 04-18-2024 Lymphocytes (Bld) [#/Vol] 2.25 10*3/uL 0.83-4.51 [facility] Microscopic analysis of urin e for red blood cells (RBC)Ordered By: Agueda Leung on 04-18-2024 Urine RBC 0-5 SEEN /hpf 0-5 [facility] Monocyte percentageOrdered B y: Agueda Leung on 04-18-2024 Monocytes/100 WBC (Bld) 8.5 % Normal 0-10 [facility] Comment on above: Performed By: #### B TS, L100.0100 #### [facility] [address] [place], [address] Mucus LM Ql (Urine sed)Order ed By: Agueda Leung on 04-18-2024 Mucus Ql (Urine sed) 0 SEEN /hpf [facility] Neutrophil percentageOrdered By: Agueda Leung on 04-18-2024 Neutrophils/100 WBC (Bld) 70.4 % High 47-70 [facility] Comment on above: Performed By: #### B TS, L100.0100 #### [facility] [address] [place], [address] Nitrite Test strip Ql (U)Ord ered By: Agueda Leung on 04-18-2024 Nitrite Ql (U) Negative Negative [facility] Nucleated red blood cell per centageOrdered By: Agueda Leung on 04-18-2024 Nucleated RBC/100 WBC (Bld) [Ratio] 0 % 0-5 [facility] Protein Test strip Ql (U)Ord ered By: Agueda Leung on 04-18-2024 Protein Ql (U) 15 mg/dl High Negative [facility] Protein+Creatinine Ratio,Uri neon 04-18-2024 PROT:CRE RATIO 240 mg/g CRE High 0-200 [facility] Comment on above: Performed By: #### L 501.0900, L501.4100, L501.1105, L400.0001, L501.1400, L501.4405 ####[facility] [address] [place], [address] Protein (U) [Mass/Vol] 20.0 mg/dL High <11.9 [facility] Comment on above: Performed By: #### L 501.0900, L501.4100, L501.1105, L400.0001, L501.1400, L501.4405 ####[facility] [address] [place], [address] UR CREAT 83.40 mg/dL Normal NO RANGE EST. [facility] Comment on above: Performed By: #### L 501.0900, L501.4100, L501.1105, L400.0001, L501.1400, L501.4405 ####[facility] [address] [place], [address] Protein/Creatinine (U) [Mass ratio]Ordered By: Agueda Leung on 04-18-2024 Urine Protein/Creatinine Ratio 240 mg/g CRE High 0-200 [facility] Random urine protein measure mentOrdered By: Agueda Leung on 04-18-2024 Protein (U) [Mass/Vol] 20.0 mg/dL High 0.0-11.8 [facility] Serum Creatinine AND GFRon 0 04-18-2024 ECRCL 201.47 ml/min Normal [facility] Comment on above: Performed By: #### L 501.0900, L501.4100, L501.1105, L400.0001, L501.1400, L501.4405 ####[facility] [address] [place], [address] EST GFR - AA 137 mL/min Normal >60 [facility] Comment on above: Result Comment: Afri can Malagasy GFR Calc Performed By: #### L 501.0900, L501.4100, L501.1105, L400.0001, L501.1400, L501.4405 ####[facility] [address] [place], [address] GFR/1.73 sq M.predicted among non-blacks MDRD (S/P/Bld) [Vol rate/Area] 113 mL/min/{1.73_m2} Normal >60 [facility] Comment on above: Result Comment: Non- GFR Calc Performed By: #### L 501.0900, L501.4100, L501.1105, L400.0001, L501.1400, L501.4405 ####[facility] [address] [place], [address] Serum or plasma alanine kurtz otransferase (ALT) measurementOrdered By: Agueda Leung on 04-18-2024 ALT [Catalytic activity/Vol] 22 U/L Normal 13-56 [facility] Comment on above: Performed By: #### L 501.0900, L501.4100, L501.1105, L400.0001, L501.1400, L501.4405 ####[facility] [address] [place], [address] Serum or plasma creatinine m easurement (mass/volume)Ordered By: Agueda Leung on 04-18-2024 Creatinine [Mass/Vol] 0.65 mg/dL Normal 0.55-1.02 [facility] Comment on above: The validity of the calculated GFR & GFRAA in patients over 70 years has not been determined. Clinical correlation is essential. Result Comment: The validity of the calculated GFR GFRAA in patients over 70 years has not been determined. Clinical correlation is essential. Performed By: #### L 501.0900, L501.4100, L501.1105, L400.0001, L501.1400, L501.4405 ####[facility] [address] [place], [place], [address] Serum or plasma uric acid me asurement (mass/volume)Ordered By: Agueda Leung on 04-18-2024 Urate [Mass/Vol] 5.5 mg/dL 2.6-6.0 [facility] Comment on above: The drugs N-Acetylcy steine and Metamizole may falsely depress this assay. Treponema sp Ab Ql (S)Ordere d By: Agueda Leung on 04-18-2024 Syphilis Total Antibody Non-Reactive [facility] Type AND Screenon 04-18-2024 Ab SCREEN GEL Negative Normal [facility] Comment on above: Order Comment: Labor Performed By: #### B TS, L100.0100 #### [facility] [address] [place], [place], [address] Uric Acidon 04-18-2024 URIC 5.5 mg/dL Normal 2.6-6.0 [facility] Comment on above: Result Comment: The drugs N-Acetylcysteine and Metamizole may falsely depress this assay. Performed By: #### L 501.0900, L501.4100, L501.1105, L400.0001, L501.1400, L501.4405 ####[facility] [address] [place], [place], [address] Urinalysis, Completeon 04-18 BACTERIA RARE Normal None Seen [facility] Comment on above: Order Comment: COLLE CTOR TO SPECIFY Performed By: #### L 501.0900, L501.4100, L501.1105, L400.0001, L501.1400, L501.4405 #### [facility] [address] [place], [address] EPI,SQUAMOUS 0-5 SEEN Normal 5-10 [facility] Comment on above: Order Comment: COLLE CTOR TO SPECIFY Performed By: #### L 501.0900, L501.4100, L501.1105, L400.0001, L501.1400, L501.4405 #### [facility] [address] [place], [address] RBC 0-5 SEEN Normal 0-5 [facility] Comment on above: Order Comment: DEANA CTOR TO SPECIFY Performed By: #### L 501.0900, L501.4100, L501.1105, L400.0001, L501.1400, L501.4405 #### [facility] [address] [place], [address] WBC 0-5 SEEN Normal 0-5 [facility] Comment on above: Order Comment: DEANA CTOR TO SPECIFY Performed By: #### L 501.0900, L501.4100, L501.1105, L400.0001, L501.1400, L501.4405 #### [facility] [facility] [address] [place], [address] Mucus Ql (Urine sed) 0 SEEN Normal [facility] Comment on above: Order Comment: DEANA CTOR TO SPECIFY Performed By: #### L 501.0900, L501.4100, L501.1105, L400.0001, L501.1400, L501.4405 #### [facility] [address] [place], [address] Urine blood detectionOrdered By: Agueda Leung on 04-18-2024 Urine Occult Blood Negative Negative [facility] Urine clarityOrdered By: Malinda Leung on 04-18-2024 Clarity (U) Sl. Cloudy Clear [facility] Urine color determinationOrd ered By: Agueda Leung on 04-18-2024 Color (U) Yellow Yellow [facility] Urine creatinine measurement (mass/volume)Ordered By: Agueda Leung on 04-18-2024 Creatinine (U) [Mass/Vol] 83.40 mg/dL NO RANGE EST. [facility] Urine leukocyte esterase det ection by dipstickOrdered By: Agueda Leung on 04-18-2024 Leukocyte esterase Test strip Ql (U) Negative Negative [facility] Urine pHOrdered By: Aguedasarwat Leung on 04-18-2024 pH (U) 6.0 [pH] 5.0 - 8.0 [facility] Urine specific gravity measu rementOrdered By: Agueda Leung on 04-18-2024 Specific gravity (U) [Rel density] 1.015 1.002-1.030 [facility] Urobilinogen Ql (U)Ordered B y: Ageuda Leung on 04-18-2024 Urine Urobilinogen Normal mg/dl Normal [facility] White blood cell countOrdere d By: Agueda Leung on 04-18-2024 Urine WBC 0-5 SEEN /hpf 0-5 [facility] - Chemistry and C hemistry - challengeon 04-15-2024 Glucose Ql (U) Negative [facility] - Urinalysison Protein Ql (U) Negative [facility] Contract Administrator Office Visit Reporton 04-15-2024 Contract Administrator Office Visit Report [facility] [address], [address] [place] [address] OFFICE VISIT Date of Service: 04/15/24 MR#: [id number] Acct: [id number] Name: JOEL HINTON Rep #: [id number] : 1995 Provider: Dr. Verónica Ho DO Age/Sex: 28/F Location: [facility] Status: Signed Intake Vital Signs 04/08/24 14:31 04/15/24 13:44 04/15/24 13:44 Height 5 ft 8 in 5 ft 8 in 5 ft 8 in Weight: 341 lb 6 oz BMI 51.9 BP 134/88 H Intake Visit Reasons: 41 WK OB Resource Teacher Required: No Is patient in pain?: No Allergies coconut Allergy (Severe, Verified 04/15/24 13:43) Hives Medications ???Medication ???Instructions ???Recorded ???Confirmed ???Type PNV 178-FA 180 mcg-om3 35 mg-dha 1 tab PO DAILY 09/07/23 04/15/24 History 25 mg-epa 5 mg-fish oil chew tablet pyridoxine (vitamin B6) 25 mg 25 mg PO DAILY 09/07/23 04/15/24 History tablet acetaminophen 325 mg tablet 325 mg PO Q6H PRN 12/04/23 04/15/24 History (Tylenol) Last Menstrual Period: 07/06/23 Zika: Zika virus screening: Negative : No PFSH PFSH Medical History Pre-conception counseling Encounter for Nexplanon removal Seasonal allergies Anxiety Surgical History History of tonsillectomy Family History Grandfather Heart disease Depression Lung cancer Diabetes Paternal Father Diabetes Heart disease Depression Grandmother Breast cancer Diabetes Paternal Mother Heart palpitations Social History adopted: No household members: spouse current occupational status: employed current occupation: [employer] pets and animals: Yes (Avoid litterbox) pets and animals: cat(s) history of recent travel: Yes ([place]) out of state: Yes out of country: No sexually active: Yes Smoking Status: Former smoker quit date: 10/20/20 Smokeless tobacco user: other alcohol intake: current alcohol intake frequency: holidays/special occasions only details: not while substance use type: does not use well-balanced diet: rarely or never caffeine: No eating out: 1-3 times/week during the past year weight has: remained stable what type of physical activity do you participate in: walking frequency: 1-2 times per week duration: 45-60 minutes/day darien/yazidism: Shinto seatbelt use: always do you feel safe at home: Yes additional social history: Aiyana RAMIR[employer] of [employer] History 2 Elective abortions Hx Para 0 Spontaneous abortions 1 Hx # Term Pregnancies Ectopic pregnancies Hx # Pregnancies Multiple births # of living children 0 Past Pregnancies Del. Date Name GA/Weeks Outcome Route Bth Weight Infant Gen Labor Lgth Anesthesia Del Locatn Provider FOB Unknown 03/02/23 chemical 4 spontaneous HPI 41 WK OB Details: JOEL HINTON is a 28 year old who presents for routine OB visit. OB Visit LING Calculator Estimated Delivery Date Method Current WG Current Estimate 04/11/24 LMP (Certain) 40w 4d Expected Delivery Route/Plan Labor Preferences- CB/BF classes: yes labor support person: Moises labor intervention preferences: [] pain management options preferred: epidural cut cord/dad catch: maybe : yes PP control planned: discussed discussed possible routes of delivery and associated risks: [] special requests: [] Specific Issue/Plans Covid status: [] Flu vaccine: given Tdap vaccine: given Rhogam: na LARC form signed: yes Problem list reviewed and updated with the most current plan of care details and appropriate orders placed. Relevant counseling for the gestational age provided. Continue routine care and follow up unless otherwise noted in visit notes/problem list details Initial Weight: Not Recorded Date -???-???-???-???-??? -???-???-???-???-??? -???-???- EGA Weight BP Urine Prot -???-???-???-???-??? -???-???-???-???-??? -???-???- Glucose FHR FuHt Pres Dilation -???-???-???-???-??? -???-???-???-???-??? -???-???- Effaced St Visit Note 09/11/23 -???-???-???-???-??? -???-???-???-???-??? -???-???- 9w 4d 318 lb 318 lb 112/73 -???-???-???-???-??? -???-???-???-???-??? -???-???- 174 -???-???-???-???-??? -???-???-???-???-??? -???-???- KW- CRL cons with dates. To get NIPT and carrier order at next visit. 10/12/23 -???-???-???-???-??? -???-???-???-???-??? -???-???- 14w 0d 316 lb 6 oz 122/76 Negative -???-???-???-???-??? -???-???-???-???-??? -???-???- Negative 153 -???-???-???-???-??? -???-???-???-???-??? -???-???- JV- no compl aints t (more content not included)... Normal [facility] Biophysical Prof W/O Non Str eson 04-11-2024 Biophysical Prof W/O Non Stres [facility] Imaging Services [address] [place] [address] Biophysical Prof W/O Non Stres MR#: [id number] Acct: [id number] Name: JOEL HINTON Rep #: [id number] : 1995 F 28 From: Lino Mario MD PCP: Dr. Joel Damno MD Status: [facility] Study: Biophysical Prof W/O Non Stres Date of Exam: 0 04/11/24 Exam# [id number] Ordering Dr: Patsy Pederson PARTY PLAN SALES AGENT PARTY PLAN SALES AGENT -C [id number] EXAM: US BIOPHYSICAL PROFILE WITHOUT NON-STRESS TESTING CLINICAL INDICATION: wellbeing TECHNIQUE: Real-time ultrasound of the maternal pelvis for biophysical profile evaluation with image documentation. COMPARISON: No relevant prior studies available. FINDINGS: BREATHING MOVEMENTS: Present. Score 2/2. GROSS BODY MOVEMENTS: Present. Score 2/2. TONE: Present. Score 2/2. QUALITATIVE AMNIOTIC FLUID VOLUME: BRYANT is 14.3 cm. FETUS: There is an intrauterine gestation. HEART RATE: heart rate is 158 bpm. PRESENTATION: The fetus is in cephalic position. PLACENTA: The placenta is posterior. OTHER FINDINGS: Biophysical profile score is 8/8. US/Biophysical Prof W/O Non Stres IMPRESSION: Biophysical profile score of 8/8. heart rate is 158 bpm. Electronically Signed: Lino Mario MD at 0:08 EST , CC: INGA Pederson; Dr. Joel Damon MD Charge Entry: Signed Normal [facility] Laboratory - Chemistry and C hemistry - challengeon 04-08-2024 Glucose Ql (U) Negative [facility] - Urinalysison Protein Ql (U) Negative [facility] Contract Administrator Office Visit Reporton 04-08-2024 Contract Administrator Office Visit Report [facility] [address], [address] [place] [address] OFFICE VISIT Date of Service: 04/08/24 MR#: [id number] Acct: [id number] Name: JOEL HINTON Rep #: [id number] : 1995 Provider: Dr. Freida maurer MD Age/Sex: 28/F Location: [facility] Status: Signed Intake Vital Signs 12/04/23 14:27 04/01/24 14:32 04/08/24 14:31 Height 5 ft 8 in 5 ft 8 in 5 ft 8 in Weight: 335 lb BMI 50.9 BP 118/89 H Intake Visit Reasons: 40 WK OB Chief Complaint: 40 wk ob Is patient in pain?: No Allergies coconut Allergy (Severe, Verified 04/08/24 14:37) Hives Medications ???Medication ???Instructions ???Recorded ???Confirmed ???Type PNV 178-FA 180 mcg-om3 35 mg-dha 1 tab PO DAILY 09/07/23 04/08/24 History 25 mg-epa 5 mg-fish oil chew tablet pyridoxine (vitamin B6) 25 mg 25 mg PO DAILY 09/07/23 04/08/24 History tablet acetaminophen 325 mg tablet 325 mg PO Q6H PRN 12/04/23 04/08/24 History (Tylenol) Last Menstrual Period: 07/06/23 : No Nurse's Note: 40 wk ob PFSH PFSH Medical History Pre-conception counseling Encounter for Nexplanon removal Seasonal allergies Anxiety Surgical History History of tonsillectomy Family History Grandfather Heart disease Depression Lung cancer Diabetes Paternal Father Diabetes Heart disease Depression Grandmother Breast cancer Diabetes Paternal Mother Heart palpitations Social History adopted: No household members: spouse current occupational status: employed current occupation: [employer] pets and animals: Yes (Avoid litterbox) pets and animals: cat(s) history of recent travel: Yes ([place]) out of state: Yes out of country: No sexually active: Yes Smoking Status: Former smoker quit date: 10/20/20 Smokeless tobacco user: other alcohol intake: current alcohol intake frequency: holidays/special occasions only details: not while substance use type: does not use well-balanced diet: rarely or never caffeine: No eating out: 1-3 times/week during the past year weight has: remained stable what type of physical activity do you participate in: walking frequency: 1-2 times per week duration: 45-60 minutes/day darien/yazidism: Shinto seatbelt use: always do you feel safe at home: Yes additional social history: Aiyana RAMIR[employer] of [employer] History 2 Elective abortions Hx Para 0 Spontaneous abortions 1 Hx # Term Pregnancies Ectopic pregnancies Hx # Pregnancies Multiple births # of living children 0 Past Pregnancies Del. Date Name GA/Weeks Outcome Route Bth Weight Infant Gen Labor Lgth Anesthesia Del Locatn Provider FOB Unknown 03/02/23 chemical 4 spontaneous HPI 40 WK OB Details: JOEL HINTON is a 28 year old who presents for routine OB visit. OB Visit LING Calculator Estimated Delivery Date Method Current WG Current Estimate 04/11/24 LMP (Certain) 39w 5d Expected Delivery Route/Plan Labor Preferences- CB/BF classes: yes labor support person: Moises labor intervention preferences: [] pain management options preferred: epidural cut cord/dad catch: maybe : yes PP control planned: discussed discussed possible routes of delivery and associated risks: [] special requests: [] Specific Issue/Plans Covid status: [] Flu vaccine: given Tdap vaccine: given Rhogam: na LARC form signed: yes Problem list reviewed and updated with the most current plan of care details and appropriate orders placed. Relevant counseling for the gestational age provided. Continue routine care and follow up unless otherwise noted in visit notes/problem list details Initial Weight: Not Recorded Date -???-???-???-???-??? -???-???-???-???-??? -???-???- EGA Weight BP Urine Prot -???-???-???-???-??? -???-???-???-???-??? -???-???- Glucose FHR FuHt Pres Dilation -???-???-???-???-??? -???-???-???-???-??? -???-???- Effaced St Visit Note 09/11/23 -???-???-???-???-??? -???-???-???-???-??? -???-???- 9w 4d 318 lb 318 lb 112/73 -???-???-???-???-??? -???-???-???-???-??? -???-???- 174 -???-???-???-???-??? -???-???-???-???-??? -???-???- KW- CRL cons with dates. To get NIPT and carrier order at next visit. 10/12/23 -???-???-???-???-??? -???-???-???-???-??? -???-???- 14w 0d 316 lb 6 oz 122/76 Negative -???-???-???-???-??? -???-???-???-???-??? -???-???- Negative 153 -???-???-???-???-??? -???-???-???-???-??? -???-???- JV- no compl aints today. needs work restriction lette (more content not included)... Normal [facility] OB Triage Progress Noteon OB Triage Progress Note [facility] Medical Records Department [address] [place] [address] OB Triage Progress Note 04/06/24 1254 MR#: [id number] Acct: [id number] Name: JOEL HINTON Rep #: [id number] : 1995 28 From: Freida Becker MD PCP: Dr. Joel Damon MD Status:DEP I Y DOS: Location: [facility] Progress Notes Date of Service: 04/06/24 Progress Note: Patient presents for triage evaluation secondary to contractions FHT: 155 Moderate variability reactive no decelerations category I tracing [place]: irregular Contractions Assessment and plan: false labor contracitons decreaisng now Reactive NST, reassuring maternal and status patient discharged to home to follow-up as katja. See problem list details for additional plan information. Charges/Coding Procedures Urinary/Genital 52xxx-59xxx: 97288-44 non-stress test Interp Assessment Plan (1) False labor: 04/06/24 1255 Date Freida Becker MD Cosigner Signature (if applicable): Date _ CC: Dr. Joel Damon MD; Dr. Freida Becker MD Signed Normal [facility] Biophysical Prof W/O Non Str eson 04-04-2024 Biophysical Prof W/O Non Stres [facility] Imaging Services [address] [place], [place] [address] Biophysical Prof W/O Non Stres MR#: [id number] Acct: [id number] Name: JOEL HINTON Rep #: [id number] : 1995 F 28 From: Kiko Gaytan PCP: Dr. Joel Damon MD Status: REG CLI Study: Biophysical Prof W/O Non Stres Date of Exam: 0 04/04/24 Exam# [id number] Ordering Dr: Patsy Pederson PARTY PLAN SALES AGENT PARTY PLAN SALES AGENT -C [id number] INDICATION: wellbeing EXAMINATION: Ultrasound US Biophysical Profile W/O Nonst TECHNIQUE: Transabdominal pelvic ultrasound was performed. COMPARISON: Prior study dated: 03/28/2024 ____ LMP: 07/06/2023 Beta-hCG: Unknown. Provided EGA: None. : INTRAUTERINE GESTATION(s): Single. HEART MOTION is 155 bpm. AMNIOTIC FLUID INDEX (BRYANT): 11.3 cm, largest pocket of fluid measures 4.9 cm. BIOPHYSICAL PROFILE (BPP): 10/31 -- Breathin/2. -- Movement: 2/2. -- Tone: 2/2. --BRYANT: 2/2. PRESENTATION: Cephalic PLACENTA: Posterior. There is no placenta previa or abruption. CERVIX: Not visualized. MATERNAL OVARIES: No adnexal masses. FREE FLUID: None. US/Biophysical Prof W/O Non Stres IMPRESSION: Normal biophysical profile with score of 8 out of 8. Electronically Signed: Kiko Thorne MD at 16:01 EST , CC: INGA Pederson; Dr. Joel Damon MD Charge Entry: Signed Normal [facility] Laboratory - Chemistry and C hemistry - challengeon 04-01-2024 Glucose Ql (U) Negative [facility] Laboratory - Urinalysison Protein Ql (U) Negative [facility] Contract Administrator Office Visit Reporton 04-01-2024 Contract Administrator Office Visit Report [facility] [address], [address] [place] [address] OFFICE VISIT Date of Service: 04/01/24 MR#: [id number] Acct: [id number] Name: JOEL HINTON Rep #: [id number] : 1995 Provider: INGA champagne Age/Sex: 28/F Location: [facility] [place] Status: Signed Intake Vital Signs 12/04/23 14:27 03/25/24 10:33 04/01/24 14:31 04/01/24 14:32 Height 5 ft 8 in 5 ft 8 in 5 ft 8 in 5 ft 8 in Weight: 333 lb 6 oz BMI 50.6 BP 134/84 H Intake Visit Reasons: 39 WK OB Resource Teacher Required: No Is patient in pain?: No Allergies coconut Allergy (Severe, Verified 04/01/24 14:31) Hives Medications ???Medication ???Instructions ???Recorded ???Confirmed ???Type PNV 178-FA 180 mcg-om3 35 mg-dha 1 tab PO DAILY 09/07/23 04/01/24 History 25 mg-epa 5 mg-fish oil chew tablet pyridoxine (vitamin B6) 25 mg 25 mg PO DAILY 09/07/23 04/01/24 History tablet acetaminophen 325 mg tablet 325 mg PO Q6H PRN 12/04/23 04/01/24 History (Tylenol) Last Menstrual Period: 07/06/23 Zika: Zika virus screening: Negative : No PFSH PFSH Medical History Pre-conception counseling Encounter for Nexplanon removal Seasonal allergies Anxiety Surgical History History of tonsillectomy Family History Grandfather Heart disease Depression Lung cancer Diabetes Paternal Father Diabetes Heart disease Depression Grandmother Breast cancer Diabetes Paternal Mother Heart palpitations Social History adopted: No household members: spouse current occupational status: employed current occupation: [employer] pets and animals: Yes (Avoid litterbox) pets and animals: cat(s) history of recent travel: Yes ([place]) out of state: Yes out of country: No sexually active: Yes Smoking Status: Former smoker quit date: 10/20/20 Smokeless tobacco user: other alcohol intake: current alcohol intake frequency: holidays/special occasions only details: not while substance use type: does not use well-balanced diet: rarely or never caffeine: No eating out: 1-3 times/week during the past year weight has: remained stable what type of physical activity do you participate in: walking frequency: 1-2 times per week duration: 45-60 minutes/day darien/yazidism: Shinto seatbelt use: always do you feel safe at home: Yes additional social history: Aiyana RAMIRES of [employer] History 2 Elective abortions Hx Para 0 Spontaneous abortions 1 Hx # Term Pregnancies Ectopic pregnancies Hx # Pregnancies Multiple births # of living children 0 Past Pregnancies Del. Date Name GA/Weeks Outcome Route Bth Weight Gen Labor Lgth Anesthesia Del Locatn Provider FOB Unknown 03/02/23 chemical 4 spontaneous HPI 39 WK OB Details: JOEL HINTON is a 28 year old who presents for routine OB visit. OB Visit LING Calculator Estimated Delivery Date Method Current WG Current Estimate 04/11/24 LMP (Certain) 38w 4d Expected Delivery Route/Plan Labor Preferences- CB/BF classes: yes labor support person: Moises labor intervention preferences: [] pain management options preferred: epidural cut cord/dad catch: maybe : yes PP control planned: discussed discussed possible routes of delivery and associated risks: [] special requests: [] Specific Issue/Plans Covid status: [] Flu vaccine: given Tdap vaccine: given Rhogam: na LARC form signed: yes Problem list reviewed and updated with the most current plan of care details and appropriate orders placed. Relevant counseling for the gestational age provided. Continue routine care and follow up unless otherwise noted in visit notes/problem list details Initial Weight: Not Recorded Date -???-???-???-???-??? -???-???-???-???-??? -???-???- EGA Weight BP Urine Prot -???-???-???-???-??? -???-???-???-???-??? -???-???- Glucose FHR FuHt Pres Dilation -???-???-???-???-??? -???-???-???-???-??? -???-???- Effaced St Visit Note 09/11/23 -???-???-???-???-??? -???-???-???-???-??? -???-???- 9w 4d 318 lb 318 lb 112/73 -???-???-???-???-??? -???-???-???-???-??? -???-???- 174 -???-???-???-???-??? -???-???-???-???-??? -???-???- KW- CRL cons with dates. To get NIPT and carrier order at next visit. 10/12/23 -???-???-???-???-??? -???-???-???-???-??? -???-???- 14w 0d 316 lb 6 oz 122/76 Negative -???-???-???-???-??? -???-???-???-???-??? -???-???- Negative 153 -???-???-???-???-??? -???-???-???-???-??? -???-???- JV- (more content not included)... Normal [facility] OB Limited With Biometricson 03-28-2024 OB Limited With Biometrics [facility] Imaging Services [address], [place] [address] OB Limited With Biometrics MR#: [id number] Acct: [id number] Name: JOEL HINTON Rep #: [id number] : 1995 F 28 From: Lino Mario MD PCP: Dr. Joel Damon MD Status: [facility] Study: OB Limited With Biometrics Date of Exam: 03/28 Exam# [id number] Ordering Dr: Verónica Mars DO [id number] EXAM: US , LIMITED CLINICAL INDICATION: growth -- 36 weeks TECHNIQUE: Real-time limited ultrasound of the maternal uterus with image documentation. COMPARISON: No relevant prior studies available. FINDINGS: FETUS: There is an intrauterine gestation. GESTATIONAL AGE: Gestational age 38 weeks 0 days. LING: LING 04/11/2024. EFW: Estimated weight 3329 g. BPD: Biparietal diameter 9.5 cm age 38 weeks 5 days, 88th percentile. HC: Head circumference 34.0 cm age 39 weeks 1 day, 57th percentile. AC: Abdominal circumference 34.2 cm age 38 weeks 0 days, 70th percentile. FL: Femur length 7.1 cm age 36 weeks 1 day, 13th percentile. POSITION: The fetus is in the cephalic position. HEART RATE: The heart rate is 148 bpm. PLACENTA: The placenta is posterior. AMNIOTIC FLUID: BRYANT measures 11.5 cm. IMPRESSION: Intrauterine gestation with an average ultrasound age of 38 weeks 1 day and ultrasound estimated due date of 04/10/2024. heart rate is 148 bpm. Electronically Signed: Lino Mario MD at 0:05 EST , [id number] EXAM: US BIOPHYSICAL PROFILE WITHOUT NON-STRESS TESTING CLINICAL INDICATION: growth -- 36 weeks TECHNIQUE: Real-time ultrasound of the maternal pelvis for biophysical profile evaluation with image documentation. COMPARISON: No relevant prior studies available. FINDINGS: BREATHING MOVEMENTS: Present. Score 2/2. GROSS BODY MOVEMENTS: Present. Score 2/2. TONE: Present. Score 2/2. QUALITATIVE AMNIOTIC FLUID VOLUME: BRYANT is 11.5 cm. HEART RATE: heart rate 148 bpm. PRESENTATION: There is an intrauterine gestation in cephalic position. OTHER FINDINGS: Biophysical profile score is 8/8. US/OB Limited With Biometrics IMPRESSION: Intrauterine gestation with a biophysical profile score of 8/8. heart rate is 148 bpm. Electronically Signed: Lnio Mario MD at 0:06 EST , CC: Dr. Joel Damon MD; Dr. Verónica Mars DO Charge Entry: Signed Normal [facility] Laboratory - Chemistry and C hemistry - challengeon 03-25-2024 Glucose Ql (U) Negative [facility] Laboratory - Urinalysison Protein Ql (U) Negative [facility] MR/BMS.BBCon 03-25-2024 [place]MS.[place] [address] [place] [address] OFFICE VISIT Date of Service: 03/25/24 MR#: [id number] Acct: [id number] Name: JOEL HINTON Rep #: [id number] : 1995 Provider: Stephanie Strange NP Age/Sex: 28/F Location: [facility] [place] Status: Signed Intake Vital Signs 02/29/24 15:03 03/25/24 09:21 03/25/24 10:33 Height 5 ft 8 in 5 ft 8 in 5 ft 8 in Intake Visit Reasons: assessment Chief Complaint: assessment Accompanied by: Mother Allergies coconut Allergy (Severe, Verified 03/25/24 09:19) Hives : Yes PFSH PFSH Medical History Pre-conception counseling Encounter for Nexplanon removal Seasonal allergies Anxiety Surgical History History of tonsillectomy Family History Grandfather Heart disease Depression Lung cancer Diabetes Paternal Father Diabetes Heart disease Depression Grandmother Breast cancer Diabetes Paternal Mother Heart palpitations Social History adopted: No household members: spouse current occupational status: employed current occupation: [employer] pets and animals: Yes (Avoid litterbox) pets and animals: cat(s) history of recent travel: Yes ([place]) out of state: Yes out of country: No sexually active: Yes Smoking Status: Former smoker quit date: 10/20/20 Smokeless tobacco user: other alcohol intake: current alcohol intake frequency: holidays/special occasions only details: not while substance use type: does not use well-balanced diet: rarely or never caffeine: No eating out: 1-3 times/week during the past year weight has: remained stable what type of physical activity do you participate in: walking frequency: 1-2 times per week duration: 45-60 minutes/day darien/yazidism: Shinto seatbelt use: always do you feel safe at home: Yes additional social history: [employer]iy[employer] History 2 Elective abortions Hx Para 0 Spontaneous abortions 1 Hx # Term Pregnancies Ectopic pregnancies Hx # Pregnancies Multiple births # of living children 0 Past Pregnancies Del. Date Name GA/Weeks Outcome Route Bth Weight Gen Labor Lgth Anesthesia Del [facility] Provider FOB Unknown 03/02/23 chemical 4 spontaneous HPI HPI HPI: JOEL HINTON, is a 28 F who presents to the office today for assessment. History provided by the patient. ROS ROS Const Constitutional: Denies fever(s) or lethargy : Denies nipple discharge Skin Skin/Breast: Denies breast pain, breast skin changes or nipple discharge Details: patient almost 38 weeks, here today for assessment, has questions about flange size and pumping once baby is born, has 8 weeks of maternity leave and would like to build up some milk once she is back to work, initially plans to breastfeed on demand, denies any gestational diabetes or gestation HTN with , medications include PNV, Tylenol PRN and Vit B6, had increased breast changes with Exam Maternal Assessment Breast Assessment Bilateral Breasts: Soft Nipple Assessment Bilateral Nipples: Everted Assessment Goals Breast Feeding Goals: Exclusive Exam Const General: comfortable and no acute distress Orientation: alert and oriented x3 Chest Breast inspection: normal inspection of the breasts Resp Effort Inspection: normal respiratory effort Skin General: no rashes or lesions noted Psych Appearance: grossly normal Mental Status: mental status grossly normal Affect: normal affect Results POC Urinalysis 2 Dip (Clinic) Office Urine Glucose Negative Last Edit by Patsy Duran on 03/25/24 09:31 Office Urine Protein Negative Last Edit by Patsy Duran on 03/25/24 09:31 Assessment and Plan Assessment and Plan (1) Care and examination of lactating mother: Plan: Educated on pumping after delivery, all pump settings, fitted for flange size. Also education on milk storage and handout provided. No significant concerns in history for milk supply. Will follow up with after delivery. Coding Level of Care Code 35835 PRVT COUNSELING INDIVID Diagnoses Care and examination of lactating mother Z39.1 Time Spent (min) 30 03/25/24 1131 Date Stephanie Strange PARTY PLAN SALES AGENT PARTY PLAN SALES AGENT-C Cosigner Signature: Date (if applicable) CC: Normal [facility] Contract Administrator Office Visit Reporton 03-25-2024 Contract Administrator Office Visit Report [facility] [address], [address] [place] [address] OFFICE VISIT Date of Service: 03/25/24 MR#: [id number] Acct: [id number] Name: JOEL HINTON Rep #: [id number] : 1995 Provider: LORI Winston ams Age/Sex: 28/F Location: [facility] Status: Signed Intake Vital Signs 12/04/23 14:27 03/18/24 10:03 03/25/24 09:21 Height 5 ft 8 in 5 ft 8 in 5 ft 8 in Weight: 324 lb 4 oz BMI 49.3 BP 115/72 Intake Visit Reasons: 38 WK OB Resource Teacher Required: No Is patient in pain?: No Feel stressed/tense/nervo us/anxious/difficult y sleeping: not at all Allergies coconut Allergy (Severe, Verified 03/25/24 09:19) Hives Medications ???Medication ???Instructions ???Recorded ???Confirmed ???Type PNV 178-FA 180 mcg-om3 35 mg-dha 1 tab PO DAILY 09/07/23 03/25/24 History 25 mg-epa 5 mg-fish oil chew tablet pyridoxine (vitamin B6) 25 mg 25 mg PO DAILY 09/07/23 03/25/24 History tablet acetaminophen 325 mg tablet 325 mg PO Q6H PRN 12/04/23 03/25/24 History (Tylenol) Last Menstrual Period: 07/06/23 Zika: Zika virus screening: Negative : No Have you fallen in the past year?: No PFSH PFSH Medical History Pre-conception counseling Encounter for Nexplanon removal Seasonal allergies Anxiety Surgical History History of tonsillectomy Family History Grandfather Heart disease Depression Lung cancer Diabetes Paternal Father Diabetes Heart disease Depression Grandmother Breast cancer Diabetes Paternal Mother Heart palpitations Social History adopted: No household members: spouse current occupational status: employed current occupation: [employer] pets and animals: Yes (Avoid litterbox) pets and animals: cat(s) history of recent travel: Yes ([place]) out of state: Yes out of country: No sexually active: Yes Smoking Status: Former smoker quit date: 10/20/20 Smokeless tobacco user: other alcohol intake: current alcohol intake frequency: holidays/special occasions only details: not while substance use type: does not use well-balanced diet: rarely or never caffeine: No eating out: 1-3 times/week during the past year weight has: remained stable what type of physical activity do you participate in: walking frequency: 1-2 times per week duration: 45-60 minutes/day darien/yazidism: Shinto seatbelt use: always do you feel safe at home: Yes additional social history: [employer]- [employer] History 2 Elective abortions Hx Para 0 Spontaneous abortions 1 Hx # Term Pregnancies Ectopic pregnancies Hx # Pregnancies Multiple births # of living children 0 Past Pregnancies Del. Date Name GA/Weeks Outcome Route Bth Weight [facility]ant [facility] F[facility] Unknown 03/02/23 chemical 4 spontaneous HPI 38 WK OB Details: JOEL HINTON is a 28 year old who presents for routine OB visit. OB Visit LING Calculator Estimated Delivery Date Method Current WG Current Estimate 04/11/24 LMP (Certain) 37w 4d Expected Delivery Route/Plan Labor Preferences- CB/BF classes: yes labor support person: Moises labor intervention preferences: [] pain management options preferred: epidural cut cord/dad catch: maybe : yes PP control planned: discussed discussed possible routes of delivery and associated risks: [] special requests: [] Specific Issue/Plans Covid status: [] Flu vaccine: given Tdap vaccine: given Rhogam: na LARC form signed: yes Problem list reviewed and updated with the most current plan of care details and appropriate orders placed. Relevant counseling for the gestational age provided. Continue routine care and follow up unless otherwise noted in visit notes/problem list details Initial Weight: Not Recorded Date -???-???-???-???-??? -???-???-???-???-??? -???-???- EGA Weight BP Urine Prot -???-???-???-???-??? -???-???-???-???-??? -???-???- Glucose FHR FuHt Pres Dilation -???-???-???-???-??? -???-???-???-???-??? -???-???- Effaced St Visit Note 09/11/23 -???-???-???-???-??? -???-???-???-???-??? -???-???- 9w 4d 318 lb 318 lb 112/73 -???-???-???-???-??? -???-???-???-???-??? -???-???- 174 -???-???-???-???-??? -???-???-???-???-??? -???-???- KW- CRL cons with dates. To get NIPT and carrier order at next visit. 10/12/23 -???-???-???-???-??? -???-???-???-???-??? -???-???- 14w 0d 316 lb 6 oz 122/76 Negative -???-???-???-???-??? -???-???-???-???-??? -???-???- (more content not included)... Normal [facility] Biophysical Prof W/O Non Str eson 03-21-2024 Biophysical Prof W/O Non Stres [facility] Imaging Services [address] [place] [address] Biophysical Prof W/O Non Stres MR#: [id number] Acct: [id number] Name: JOEL HINTON Rep #: [id number] : 1995 F 28 From: Brian Jordan MD PCP: Dr. Joel Damon MD Status: REG CLI Study: Biophysical Prof W/O Non Stres Date of Exam: 05/22/23 Exam# [id number] Ordering Dr: Patsy Pederson PARTY PLAN SALES AGENT PARTY PLAN SALES AGENT -C [id number] STUDY: OBSTETRICAL ULTRASOUND - BIOPHYSICAL PROFILE REASON FOR EXAM: Female, 28 years old wellbeing LMP: 07/06/2023 PRIOR ULTRASOUND: 03/14/2024 TECHNIQUE: Transabdominal TECHNICAL QUALITY: Adequate. FINDINGS: There is a single intrauterine fetus. The fetus is in a cephalic presentation. There is demonstrated cardiac activity with a heart rate of 145 bpm. There is a normal amniotic fluid volume. The largest amniotic fluid pocket measures 5.4 cm. The amniotic fluid index (BRYANT) is 14.7 cm. The placenta is posterior in location and is not low lying. There are Grade 2 placental changes. Age by LMP: 37 weeks, 0 days. LING by LMP: 04/11/2024. BIOPHYSICAL PROFILE: Breathing Movements (FBM): 2 Gross Body Movements (GBM): 2 Tone (FT): 2 Amniotic Fluid Volume (AFV): 2 TOTAL SCORE: 8 / 8 US/Biophysical Prof W/O Non Stres IMPRESSION: Normal biophysical profile of 10/31. Electronically Signed: Brian Jordan MD at 18:16 EST , CC: INGA Pederson; Dr. Joel Damon MD Charge Entry: Signed Normal [facility] Laboratory - Chemistry and C hemistry - challengeon 03-18-2024 Glucose Ql (U) Negative [facility] Laboratory - Urinalysison Protein Ql (U) Negative [facility] Contract Administrator Office Visit Reporton 03-18-2024 Contract Administrator Office Visit Report [facility] [address], [address] [place] [address] OFFICE VISIT Date of Service: 03/18/24 MR#: [id number] Acct: [id number] Name: JOEL HINTON Rep #: [id number] : 1995 Provider: Dr. Freida maurer MD Age/Sex: 28/F Location: [facility] Status: Signed Intake Vital Signs 12/04/23 14:27 01/18/24 13:43 03/14/24 15:49 03/18/24 10:01 03/18/24 10:03 Height 5 ft 8 in 5 ft 8 in 5 ft 8 in 5 ft 8 in 5 ft 8 in Weight: 327 lb 6 oz BMI 49.7 BP 121/87 H Intake Visit Reasons: 37 WK OB Resource Teacher Required: No Is patient in pain?: No Feel stressed/tense/nervo us/anxious/difficult y sleeping: not at all Allergies coconut Allergy (Severe, Verified 03/18/24 10:01) Hives Medications ???Medication ???Instructions ???Recorded ???Confirmed ???Type PNV 178-FA 180 mcg-om3 35 mg-dha 1 tab PO DAILY 09/07/23 03/18/24 History 25 mg-epa 5 mg-fish oil chew tablet pyridoxine (vitamin B6) 25 mg 25 mg PO DAILY 09/07/23 03/18/24 History tablet acetaminophen 325 mg tablet 325 mg PO Q6H PRN 12/04/23 03/18/24 History (Tylenol) Last Menstrual Period: 07/06/23 Zika: Zika virus screening: Negative : No Have you fallen in the past year?: No PFSH PFSH Medical History Pre-conception counseling Encounter for Nexplanon removal Seasonal allergies Anxiety Surgical History History of tonsillectomy Family History Grandfather Heart disease Depression Lung cancer Diabetes Paternal Father Diabetes Heart disease Depression Grandmother Breast cancer Diabetes Paternal Mother Heart palpitations Social History adopted: No household members: spouse current occupational status: employed current occupation: [employer] pets and animals: Yes (Avoid litterbox) pets and animals: cat(s) history of recent travel: Yes ([place]) out of state: Yes out of country: No sexually active: Yes Smoking Status: Former smoker quit date: 10/20/20 Smokeless tobacco user: other alcohol intake: current alcohol intake frequency: holidays/special occasions only details: not while substance use type: does not use well-balanced diet: rarely or never caffeine: No eating out: 1-3 times/week during the past year weight has: remained stable what type of physical activity do you participate in: walking frequency: 1-2 times per week duration: 45-60 minutes/day darien/yazidism: Shinto seatbelt use: always do you feel safe at home: Yes additional social history: Aiyana [employer] of [employer] History 2 Elective abortions Hx Para 0 Spontaneous abortions 1 Hx # Term Pregnancies Ectopic pregnancies Hx # Pregnancies Multiple births # of living children 0 Past Pregnancies Del. Date Name GA/Weeks Outcome Route Bth Weight Gen Labor Lgth Anesthesia Del Locatn Provider FOB Unknown 03/02/23 chemical 4 spontaneous HPI 37 WK OB Details: JOEL HINTON is a 28 year old who presents for routine OB visit. OB Visit LING Calculator Estimated Delivery Date Method Current WG Current Estimate 04/11/24 LMP (Certain) 36w 4d Expected Delivery Route/Plan Labor Preferences- CB/BF classes: yes labor support person: Moises labor intervention preferences: [] pain management options preferred: epidural cut cord/dad catch: maybe : yes PP control planned: discussed discussed possible routes of delivery and associated risks: [] special requests: [] Specific Issue/Plans Covid status: [] Flu vaccine: given Tdap vaccine: given Rhogam: na LARC form signed: yes Problem list reviewed and updated with the most current plan of care details and appropriate orders placed. Relevant counseling for the gestational age provided. Continue routine care and follow up unless otherwise noted in visit notes/problem list details Initial Weight: Not Recorded Date -???-???-???-???-??? -???-???-???-???-??? -???-???- EGA Weight BP Urine Prot -???-???-???-???-??? -???-???-???-???-??? -???-???- Glucose FHR FuHt Pres Dilation -???-???-???-???-??? -???-???-???-???-??? -???-???- Effaced St Visit Note 09/11/23 -???-???-???-???-??? -???-???-???-???-??? -???-???- 9w 4d 318 lb 318 lb 112/73 -???-???-???-???-??? -???-???-???-???-??? -???-???- 174 -???-???-???-???-??? -???-???-???-???-??? -???-???- KW- CRL cons with dates. To get NIPT and carrier order at next visit. 10/12/23 -???-???-???-???-??? -???-???-???-???-??? -???-???- 14w 0d 316 lb 6 oz 122/76 (more content not included)... Normal [facility] Rule out Beta Strep (Grp. B) on 03-16-2024 DM Group B Beta Streptococcus is not isolated. Normal [facility] Comment on above: Performed By: #### M [id number] ####[facility] [id number] [facility]. [place], [place], [address] Biophysical Prof W/O Non Str eson 03-14-2024 Biophysical Prof W/O Non Stres [facility] Imaging Services [address] [place], [place] [address] Biophysical Prof W/O Non Stres MR#: [id number] Acct: [id number] Name: JOEL HINTON Rep #: [id number] : 1995 F 28 From: Derick Palomino MD PCP: Care Physician,No Primary Status: REG CLI Study: Biophysical Prof W/O Non Stres Date of Exam: 05/15/23 Exam# [id number] Ordering Dr: Patsy Pederson PARTY PLAN SALES AGENT PARTY PLAN SALES AGENT -C [id number] STUDY: OBSTETRICAL ULTRASOUND - BIOPHYSICAL PROFILE REASON FOR EXAM: Female, 28 years old wellbeing LMP: 07/06/2023 PRIOR ULTRASOUND: 02/15/2024 TECHNIQUE: Transabdominal TECHNICAL QUALITY: Adequate. FINDINGS: There is a single intrauterine fetus. The fetus is in a cephalic presentation. There is demonstrated cardiac activity with a heart rate of 151 bpm. There is a normal amniotic fluid volume. The largest amniotic fluid pocket measures 4.5 cm. The amniotic fluid index (BRYANT) is 15.2 cm. The placenta is posterior in location and is not low lying. There are Grade 2 placental changes. Age by LMP: 36 weeks, 0 days age by prior US: 36 weeks, 6 days. LING by prior US: 04/05/2024. Gender: Female BIOPHYSICAL PROFILE: Breathing Movements (FBM): 2 Gross Body Movements (GBM): 2 Tone (FT): 2 Amniotic Fluid Volume (AFV): 2 TOTAL SCORE: IMPRESSION: Normal biophysical profile of 10/31. Electronically Signed: Rei Palomino MD at 11:43 EST , [id number] STUDY: SECOND AND THIRD TRIMESTER OBSTETRICAL ULTRASOUND - LIMITED REASON FOR EXAM: Female, 28 years old wellbeing LMP: 07/06/2023 PRIOR ULTRASOUND: 02/15/2024 TECHNIQUE: Transabdominal TECHNICAL QUALITY: Adequate. FINDINGS: There is a single intrauterine fetus. The fetus is in a cephalic presentation. There is demonstrated cardiac activity with a heart rate of 151 bpm. There is a normal amniotic fluid volume. The largest amniotic fluid pocket measures 4.5 cm. The amniotic fluid index (BRYANT) is 15.2 cm. The placenta is posterior in location and is not low lying. There are Grade 2 placental changes. The cervix was not visualized BIOMETRY: BPD: 9.3 cm: 38 weeks, 0 days HC: 34.2 cm: 39 weeks, 3 days AC: 30.7 cm: 34 weeks, 5 days FL: 6.6 cm: 34 weeks, 0 days age by current US: 36 weeks, 6 days. LING by current US: 04/05/2024. Estimated weight: 2602 grams, +/- 390 grams, 29 percentile. Gender: Female US/Biophysical Prof W/O Non Stres IMPRESSION: Single live intrauterine at 36 weeks, 3 days by current ultrasound with LING of 04/05/2024. Heart rate at 151 bpm. No suspicious sonographic findings, normal growth noted since the previous study Electronically Signed: Rei Palomino MD at 11:45 EST Reading Location ID and State: [facility] / [place] , Service support , CC: INGA Pederson; No Primary Care Physician Charge Entry: Signed Normal [facility] Laboratory - Chemistry and C hemistry - challengeon 03-14-2024 Glucose Ql (U) Negative [facility] Laboratory - Urinalysison Protein Ql (U) Negative [facility] Contract Administrator Office Visit Reporton 03-14-2024 Contract Administrator Office Visit Report [facility] [address], [address] [place] [address] OFFICE VISIT Date of Service: 03/14/24 MR#: [id number] Acct: [id number] Name: JOEL HINTON Rep #: [id number] : 1995 Provider: Dr. Freida maurer MD Age/Sex: 28/F Location: [facility] Status: Signed Intake Vital Signs 12/04/23 14:27 02/29/24 15:03 03/14/24 15:47 03/14/24 15:49 Height 5 ft 8 in 5 ft 8 in 5 ft 8 in 5 ft 8 in Weight: 331 lb 6 oz BMI 50.3 BP 126/85 H 120/86 H Intake Visit Reasons: 36 WK OB Resource Teacher Required: No Is patient in pain?: No Feel stressed/tense/nervo us/anxious/difficult y sleeping: not at all Allergies coconut Allergy (Severe, Verified 03/14/24 15:47) Hives Medications ???Medication ???Instructions ???Recorded ???Confirmed ???Type PNV 178-FA 180 mcg-om3 35 mg-dha 1 tab PO DAILY 09/07/23 03/14/24 History 25 mg-epa 5 mg-fish oil chew tablet pyridoxine (vitamin B6) 25 mg 25 mg PO DAILY 09/07/23 03/14/24 History tablet acetaminophen 325 mg tablet 325 mg PO Q6H PRN 12/04/23 03/14/24 History (Tylenol) Last Menstrual Period: 07/06/23 Zika: Zika virus screening: Negative : No Have you fallen in the past year?: No PFSH PFSH Medical History Pre-conception counseling Encounter for Nexplanon removal Seasonal allergies Anxiety Surgical History History of tonsillectomy Family History Grandfather Heart disease Depression Lung cancer Diabetes Paternal Father Diabetes Heart disease Depression Grandmother Breast cancer Diabetes Paternal Mother Heart palpitations Social History adopted: No household members: spouse current occupational status: employed current occupation: [employer] pets and animals: Yes (Avoid litterbox) pets and animals: cat(s) history of recent travel: Yes ([place]) out of state: Yes out of country: No sexually active: Yes Smoking Status: Former smoker quit date: 10/20/20 Smokeless tobacco user: other alcohol intake: current alcohol intake frequency: holidays/special occasions only details: not while substance use type: does not use well-balanced diet: rarely or never caffeine: No eating out: 1-3 times/week during the past year weight has: remained stable what type of physical activity do you participate in: walking frequency: 1-2 times per week duration: 45-60 minutes/day darien/yazidism: Shinto seatbelt use: always do you feel safe at home: Yes additional social history: Aiyana [employer] of [employer] History 2 Elective abortions Hx Para 0 Spontaneous abortions 1 Hx # Term Pregnancies Ectopic pregnancies Hx # Pregnancies Multiple births # of living children 0 Past Pregnancies Del. Date Name GA/Weeks Outcome Route Bth Weight Gen Labor Lgth Anesthesia Del Locatn Provider FOB Unknown 03/02/23 chemical 4 spontaneous HPI 36 WK OB Details: JOEL HINTON is a 28 year old who presents for routine OB visit. OB Visit LING Calculator Estimated Delivery Date Method Current WG Current Estimate 04/11/24 LMP (Certain) 36w 0d Expected Delivery Route/Plan Labor Preferences- CB/BF classes: yes labor support person: Moises labor intervention preferences: [] pain management options preferred: epidural cut cord/dad catch: maybe : yes PP control planned: discussed discussed possible routes of delivery and associated risks: [] special requests: [] Specific Issue/Plans Covid status: [] Flu vaccine: given Tdap vaccine: given Rhogam: na LARC form signed: yes Problem list reviewed and updated with the most current plan of care details and appropriate orders placed. Relevant counseling for the gestational age provided. Continue routine care and follow up unless otherwise noted in visit notes/problem list details Initial Weight: Not Recorded Date -???-???-???-???-??? -???-???-???-???-??? -???-???- EGA Weight BP Urine Prot -???-???-???-???-??? -???-???-???-???-??? -???-???- Glucose FHR FuHt Pres Dilation -???-???-???-???-??? -???-???-???-???-??? -???-???- Effaced St Visit Note 09/11/23 -???-???-???-???-??? -???-???-???-???-??? -???-???- 9w 4d 318 lb 318 lb 112/73 -???-???-???-???-??? -???-???-???-???-??? -???-???- 174 -???-???-???-???-??? -???-???-???-???-??? -???-???- KW- CRL cons with dates. To get NIPT and carrier order at next visit. 10/12/23 -???-???-???-???-??? -???-???-???-???-??? -???-???- 14w 0d 316 lb 6 oz 122/76 Negative -???- (more content not included)... Normal [facility] Screening beta-hemolytic Str eptococcus cultureOrdered By: Freida Becker on 03-14-2024 Group B Streptococcus Culture Group B Beta Streptococcus is not isolated. [facility] Laboratory - Chemistry and C hemistry - challengeon 02-29-2024 Glucose Ql (U) Negative [facility] Laboratory - Urinalysison Protein Ql (U) Trace [facility] Contract Administrator Office Visit Reporton 02-29-2024 Contract Administrator Office Visit Report [facility] [address], [address] [place] [address] OFFICE VISIT Date of Service: 02/29/24 MR#: [id number] Acct: [id number] Name: JOEL HINTON Rep #: [id number] : 1995 Provider: LORI carrillo Age/Sex: 28/F Location: [facility] Status: Signed Intake Vital Signs 12/04/23 14:27 02/12/24 15:36 02/29/24 15:01 02/29/24 15:03 Height 5 ft 8 in 5 ft 8 in 5 ft 8 in 5 ft 8 in Weight: 320 lb 2 oz BMI 48.6 BP 145/79 H 126/85 H Intake Visit Reasons: 34 WK OB Resource Teacher Required: No Is patient in pain?: No Feel stressed/tense/nervo us/anxious/difficult y sleeping: not at all Allergies coconut Allergy (Severe, Verified 02/29/24 15:02) Hives Medications ???Medication ???Instructions ???Recorded ???Confirmed ???Type PNV 178-FA 180 mcg-om3 35 mg-dha 1 tab PO DAILY 09/07/23 02/29/24 History 25 mg-epa 5 mg-fish oil chew tablet pyridoxine (vitamin B6) 25 mg 25 mg PO DAILY 09/07/23 02/29/24 History tablet acetaminophen 325 mg tablet 325 mg PO Q6H PRN 12/04/23 02/29/24 History (Tylenol) Last Menstrual Period: 07/06/23 Zika: Zika virus screening: Negative : No Have you fallen in the past year?: No PFSH PFSH Medical History Pre-conception counseling Encounter for Nexplanon removal Seasonal allergies Anxiety Surgical History History of tonsillectomy Family History Grandfather Heart disease Depression Lung cancer Diabetes Paternal Father Diabetes Heart disease Depression Grandmother Breast cancer Diabetes Paternal Mother Heart palpitations Social History adopted: No household members: spouse current occupational status: employed current occupation: [employer] pets and animals: Yes (Avoid litterbox) pets and animals: cat(s) history of recent travel: Yes ([place]) out of state: Yes out of country: No sexually active: Yes Smoking Status: Former smoker quit date: 10/20/20 Smokeless tobacco user: other alcohol intake: current alcohol intake frequency: holidays/special occasions only details: not while substance use type: does not use well-balanced diet: rarely or never caffeine: No eating out: 1-3 times/week during the past year weight has: remained stable what type of physical activity do you participate in: walking frequency: 1-2 times per week duration: 45-60 minutes/day darien/yazidism: Shinto seatbelt use: always do you feel safe at home: Yes additional social history: Aiyana [employer]IR[employer] of [employer] History 2 Elective abortions Hx Para 0 Spontaneous abortions 1 Hx # Term Pregnancies Ectopic pregnancies Hx # Pregnancies Multiple births # of living children 0 Past Pregnancies Del. Date Name GA/Weeks Outcome Route Bth Weight Infant Gen Labor Lgth Anesthesia Del Locatn Provider FOB Unknown 03/02/23 chemical 4 spontaneous HPI 34 WK OB Details: JOEL HINTON is a 28 year old who presents for routine OB visit. OB Visit LING Calculator Estimated Delivery Date Method Current WG Current Estimate 04/11/24 LMP (Certain) 34w 0d Expected Delivery Route/Plan Labor Preferences- CB/BF classes: yes labor support person: Moises labor intervention preferences: [] pain management options preferred: epidural cut cord/dad catch: maybe : yes PP control planned: discussed discussed possible routes of delivery and associated risks: [] special requests: [] Specific Issue/Plans Covid status: [] Flu vaccine: given Tdap vaccine: given Rhogam: na LARC form signed: yes Problem list reviewed and updated with the most current plan of care details and appropriate orders placed. Relevant counseling for the gestational age provided. Continue routine care and follow up unless otherwise noted in visit notes/problem list details Initial Weight: Not Recorded Date -???-???-???-???-??? -???-???-???-???-??? -???-???- EGA Weight BP Urine Prot -???-???-???-???-??? -???-???-???-???-??? -???-???- Glucose FHR FuHt Pres Dilation -???-???-???-???-??? -???-???-???-???-??? -???-???- Effaced St Visit Note 09/11/23 -???-???-???-???-??? -???-???-???-???-??? -???-???- 9w 4d 318 lb 318 lb 112/73 -???-???-???-???-??? -???-???-???-???-??? -???-???- 174 -???-???-???-???-??? -???-???-???-???-??? -???-???- KW- CRL cons with dates. To get NIPT and carrier order at next visit. 10/12/23 -???-???-???-???-??? -???-???-???-???-??? -???-???- 14w 0d 316 lb 6 oz 122/76 Negative -???-???-???-???-? (more content not included)... Normal [facility] OB Limited With [employer] 02-15-2024 OB Limited With Biometrics [facility] Imaging Services [address] [place], [place] [address] OB Limited With Biometrics MR#: [id number] Acct: [id number] Name: JOEL HINTON Rep #: [id number] : 1995 F 28 From: Lino Mario MD PCP: Care Physician,No Primary Status: REG CL Study: OB Limited With Biometrics Date of Exam: 02/14 Exam# [id number] Ordering Dr: Verónica Mars DO [id number] EXAM: US SECOND OR THIRD TRIMESTER , TRANSABDOMINAL CLINICAL INDICATION: growth -- 32 weeks TECHNIQUE: Transabdominal obstetrical ultrasound of the maternal pelvis and a second or third trimester with image documentation. COMPARISON: No relevant prior studies available. FINDINGS: FETUS: There is an intrauterine gestation. HEART RATE: heart rate is 162 bpm. PRESENTATION: The fetus is in a cephalic position. PLACENTA: The placenta is posterior. No placenta previa. No abruption. AMNIOTIC FLUID: BRYANT is 19.1 cm. ANATOMY: Intracranial/face anatomy not seen. Spinal anatomy not seen. Abdominal anatomy not seen. Extremities not seen. Four-chamber heart not seen. Umbilical cord not seen. BIOMETRICS GESTATIONAL AGE: Gestational age 32 weeks 0 days. LING: LING 04/11/2024. EFW: Estimated weight 2033 g, 62nd percentile. BPD: Biparietal diameter 8.2 cm age 33 weeks 0 days, 73rd percentile. HC: Head circumference 30.7 cm age 34 weeks 1 day, 72nd percentile. AC: Abdominal circumference 28.7 cm age 32 weeks 5 days, 71st percentile. FL: Femur length 6.2 cm age 32 weeks 1 day, 39th percentile. MATERNAL: UTERUS: Unremarkable. No myometrial mass. CERVIX: Unremarkable as visualized. The cervix is closed. ADNEXA: Unremarkable. No adnexal masses. FREE FLUID: None. US/OB Limited With Biometrics IMPRESSION: Intrauterine gestation with an average ultrasound age is 33 weeks 3 days and ultrasound estimated due date of 04/01/2024. heart rate is 162 bpm. Electronically Signed: Lino Mario MD at 0:05 EST Reading Location ID and State: [facility] / [place] Tel , Service support , CC: Dr. Verónica Mars, DO; No Primary Care Physician Charge Entry: Signed Normal [facility] Contract Administrator Office Visit Reporton 02-12-2024 Contract Administrator Office Visit Report [facility] [address], [address] [place] [address] OFFICE VISIT Date of Service: 02/12/24 MR#: [id number] Acct: [id number] Name: JOEL HINTON Rep #: [id number] : 1995 Provider: INGA champagne Age/Sex: 28/F Location: [facility] Status: Signed Intake Vital Signs 12/04/23 14:27 01/29/24 14:52 02/12/24 15:36 Height 5 ft 8 in 5 ft 8 in 5 ft 8 in Weight: 322 lb 2 oz BMI 48.9 BP 116/82 H Intake Visit Reasons: 32 WK OB Chief Complaint: 32 Week OB Resource Teacher Required: No Is patient in pain?: No Allergies coconut Allergy (Severe, Verified 02/12/24 15:35) Hives Medications ???Medication ???Instructions ???Recorded ???Confirmed ???Type PNV 178-FA 180 mcg-om3 35 mg-dha 1 tab PO DAILY 09/07/23 02/12/24 History 25 mg-epa 5 mg-fish oil chew tablet pyridoxine (vitamin B6) 25 mg 25 mg PO DAILY 09/07/23 02/12/24 History tablet acetaminophen 325 mg tablet 325 mg PO Q6H PRN 12/04/23 02/12/24 History (Tylenol) Last Menstrual Period: 07/06/23 Zika: Zika virus screening: Negative : Yes PFSH PFSH Medical History Pre-conception counseling Encounter for Nexplanon removal Seasonal allergies Anxiety Surgical History History of tonsillectomy Family History Grandfather Heart disease Depression Lung cancer Diabetes Paternal Father Diabetes Heart disease Depression Grandmother Breast cancer Diabetes Paternal Mother Heart palpitations Social History adopted: No household members: spouse current occupational status: employed current occupation: [employer] pets and animals: Yes (Avoid litterbox) pets and animals: cat(s) history of recent travel: Yes ([place]) out of state: Yes out of country: No sexually active: Yes Smoking Status: Former smoker quit date: 10/20/20 Smokeless tobacco user: other alcohol intake: current alcohol intake frequency: holidays/special occasions only details: not while substance use type: does not use well-balanced diet: rarely or never caffeine: No eating out: 1-3 times/week during the past year weight has: remained stable what type of physical activity do you participate in: walking frequency: 1-2 times per week duration: 45-60 minutes/day darien/yazidism: Shinto seatbelt use: always do you feel safe at home: Yes additional social history: Aiyana [employer] of [employer] History 2 Elective abortions Hx Para 0 Spontaneous abortions 1 Hx # Term Pregnancies Ectopic pregnancies Hx # Pregnancies Multiple births # of living children 0 Past Pregnancies Del. Date Name GA/Weeks Outcome Route Bth Weight Gen Labor Lgth Anesthesia Del Locatn Provider FOB Unknown 03/02/23 chemical 4 spontaneous HPI 32 WK OB Details: JOEL HINTON is a 28 year old who presents for routine OB visit. OB Visit LING Calculator Estimated Delivery Date Method Current WG Current Estimate 04/11/24 LMP (Certain) 31w 4d Expected Delivery Route/Plan Labor Preferences- CB/BF classes: yes labor support person: Moises labor intervention preferences: [] pain management options preferred: epidural cut cord/dad catch: maybe : yes PP control planned: discussed discussed possible routes of delivery and associated risks: [] special requests: [] Specific Issue/Plans Covid status: [] Flu vaccine: given Tdap vaccine: given Rhogam: na LARC form signed: yes Problem list reviewed and updated with the most current plan of care details and appropriate orders placed. Relevant counseling for the gestational age provided. Continue routine care and follow up unless otherwise noted in visit notes/problem list details Initial Weight: Not Recorded Date -???-???-???-???-??? -???-???-???-???-??? -???-???- EGA Weight BP Urine Prot -???-???-???-???-??? -???-???-???-???-??? -???-???- Glucose FHR FuHt Pres Dilation -???-???-???-???-??? -???-???-???-???-??? -???-???- Effaced St Visit Note 09/11/23 -???-???-???-???-??? -???-???-???-???-??? -???-???- 9w 4d 318 lb 318 lb 112/73 -???-???-???-???-??? -???-???-???-???-??? -???-???- 174 -???-???-???-???-??? -???-???-???-???-??? -???-???- KW- CRL cons with dates. To get NIPT and carrier order at next visit. 10/12/23 -???-???-???-???-??? -???-???-???-???-??? -???-???- 14w 0d 316 lb 6 oz 122/76 Negative -???-???-???-???-??? -???-???-???-???-??? -???-???- Negative 153 -???-???-???-???-??? -???-???-???-???-??? -???-???- JV (more content not included)... Normal [facility] Contract Administrator Office Visit Reporton 01-29-2024 Contract Administrator Office Visit Report [facility] [address], [address] [place] [address] OFFICE VISIT Date of Service: 01/29/24 MR#: [id number] Acct: [id number] Name: JOEL HINTON Rep #: [id number] : 1995 Provider: LORI Winston ams Age/Sex: 28/F Location: [facility] Status: Signed Intake Vital Signs 12/04/23 14:27 01/18/24 13:43 01/29/24 14:49 01/29/24 14:52 Height 5 ft 8 in 5 ft 8 in 5 ft 8 in 5 ft 8 in Weight: 317 lb BMI 48.2 BP 112/79 Intake Visit Reasons: 30 WK OB Resource Teacher Required: No Is patient in pain?: No Allergies coconut Allergy (Severe, Verified 01/29/24 14:49) Hives Medications ???Medication ???Instructions ???Recorded ???Confirmed ???Type PNV 178-FA 180 mcg-om3 35 mg-dha 1 tab PO DAILY 09/07/23 01/29/24 History 25 mg-epa 5 mg-fish oil chew tablet pyridoxine (vitamin B6) 25 mg 25 mg PO DAILY 09/07/23 01/29/24 History tablet acetaminophen 325 mg tablet 325 mg PO Q6H PRN 12/04/23 01/29/24 History (Tylenol) Last Menstrual Period: 07/06/23 Zika: Zika virus screening: Negative : No Nurse's Note: Patient has c/o of bilateral bruising on calfs that come and go. Patient also has c/o cat scratch. They just found fleas on cats and want to make sure they don't need to be concerned of infection with scratch. [facility] Medical History Pre-conception counseling Encounter for Nexplanon removal Seasonal allergies Anxiety Surgical History History of tonsillectomy Family History Grandfather Heart disease Depression Lung cancer Diabetes Paternal Father Diabetes Heart disease Depression Grandmother Breast cancer Diabetes Paternal Mother Heart palpitations Social History adopted: No household members: spouse current occupational status: employed current occupation: [employer] pets and animals: Yes (Avoid litterbox) pets and animals: cat(s) history of recent travel: Yes ([place]) out of state: Yes out of country: No sexually active: Yes Smoking Status: Former smoker quit date: 10/20/20 Smokeless tobacco user: other alcohol intake: current alcohol intake frequency: holidays/special occasions only details: not while substance use type: does not use well-balanced diet: rarely or never caffeine: No eating out: 1-3 times/week during the past year weight has: remained stable what type of physical activity do you participate in: walking frequency: 1-2 times per week duration: 45-60 minutes/day darien/yazidism: Shinto seatbelt use: always do you feel safe at home: Yes additional social history: Aiyana [employer] of [employer] History 2 Elective abortions Hx Para 0 Spontaneous abortions 1 Hx # Term Pregnancies Ectopic pregnancies Hx # Pregnancies Multiple births # of living children 0 Past Pregnancies Del. Date Name GA/Weeks Outcome Route Bth Weight Infant Gen Labor Lgth Anesthesia Garry Davila Provider FOB Unknown 03/02/23 chemical 4 spontaneous HPI 30 WK OB Details: JOEL HINTON is a 28 year old who presents for routine OB visit. OB Visit LING Calculator Estimated Delivery Date Method Current WG Current Estimate 04/11/24 LMP (Certain) 29w 4d Expected Delivery Route/Plan Labor Preferences- CB/BF classes: [] labor support person: [] labor intervention preferences: [] pain management options preferred: [] cut cord/dad catch: [] : [] PP control planned: [] discussed possible routes of delivery and associated risks: [] special requests: [] Specific Issue/Plans Covid status: [] Flu vaccine: [] Tdap vaccine: [] Rhogam: [] LARC form signed: [] Problem list reviewed and updated with the most current plan of care details and appropriate orders placed. Relevant counseling for the gestational age provided. Continue routine care and follow up unless otherwise noted in visit notes/problem list details Initial Weight: Not Recorded Date -???-???-???-???-??? -???-???-???-???-??? -???-???- EGA Weight BP Urine Prot -???-???-???-???-??? -???-???-???-???-??? -???-???- Glucose FHR FuHt Pres Dilation -???-???-???-???-??? -???-???-???-???-??? -???-???- Effaced St Visit Note 09/11/23 -???-???-???-???-??? -???-???-???-???-??? -???-???- 9w 4d 318 lb 318 lb 112/73 -???-???-???-???-??? -???-???-???-???-??? -???-???- 174 -???-???-???-???-??? -???-???-???-???-??? -???-???- KW- CRL cons with dates. To get NIPT and carrier order at next visit. 10/12/23 -???-???-???-???-??? -???-???-???-???-??? - (more content not included)... Normal [facility] CBC W/Diff, Automatedon 10-2 Absolute Lymph 1.76 X10 3/uL Normal 0.83-4.51 [facility] Comment on above: Performed By: #### L 350.1800 #### [facility] [address] [place], [address] Absolute Neut 8.3 X10 3/uL High 2.0-7.7 [facility] Comment on above: Performed By: #### L 350.1800 #### [facility] [address] [place], [address] Basophils/100 WBC (Bld) 0.5 % Normal 0-1 [facility] Comment on above: Performed By: #### L 350.1800 #### [facility] [address] [place], [address] Eosinophils/100 WBC (Bld) 0.5 % Normal 0-5 [facility] Comment on above: Performed By: #### L 350.1800 #### [facility] [address] [place], [address] Erythrocyte distribution width (RBC) [Ratio] 14.1 % Normal 11.6-14.6 [facility] Comment on above: Performed By: #### L 350.1800 #### [facility] [address] [place], [address] Hematocrit (Bld) [Volume fraction] 36.2 % Low 37-47 [facility] Comment on above: Performed By: #### L 350.1800 #### [facility] [address] [place], [address] Hemoglobin (Bld) [Mass/Vol] 11.8 g/dL Low 12.0-15.0 [facility] Comment on above: Performed By: #### L 350.1800 #### [facility] [address] [place], [address] IG% 1.000 High 0.0-0.9 [facility] Comment on above: Result Comment: IG% - Immature Granulocytes (promyelocytes, myelocytes and metamyelocytes) > 1% indicates that a LEFT SHIFT is Present. Performed By: #### L 350.1800 #### [facility] [address] [place], [address] Lymphocytes/100 WBC (Bld) 16.1 % Low 19-41 [facility] Comment on above: Performed By: #### L 350.1800 #### [facility] [address] [place], [address] MCH (RBC) [Entitic mass] 28.6 pg Normal 27.0-32.0 [facility] Comment on above: Performed By: #### L 350.1800 #### [facility] [address] [place], [address] MCHC (RBC) [Mass/Vol] 32.6 g/dL Normal 32-36 [facility] Comment on above: Performed By: #### L 350.1800 #### [facility] [address] [place], [address] MCV (RBC) [Entitic vol] 87.7 fL Normal 81-99 [facility] Comment on above: Performed By: #### L 350.1800 #### [facility] [address] [place], [address] Monocytes/100 WBC (Bld) 6.0 % Normal 0-10 [facility] Comment on above: Performed By: #### L 350.1800 #### [facility] [address] [place], [address] Neutrophils/100 WBC (Bld) 75.9 % High 47-70 [facility] Comment on above: Performed By: #### L 350.1800 #### [facility] [address] [place], [address] Nucleated RBC (Bld) [#/Vol] 0 10*3/uL Normal 0-5 [facility] Comment on above: Performed By: #### L 350.1800 #### [facility] [address] [place], [address] Platelet mean volume (Bld) [Entitic vol] 11.2 fL Normal 6.2-12.0 [facility] Comment on above: Performed By: #### L 350.1800 #### [facility] [address] [place], [address] Platelets (Bld) [#/Vol] 279 10*3/uL Normal 150-450 [facility] Comment on above: Performed By: #### L 350.1800 #### [facility] [address] [place], [address] RBC (Bld) [#/Vol] 4.13 10*6/uL Low 4.2-5.4 [place] Comment on above: Performed By: #### L 350.1800 #### [facility] [address] [place], [address] RDW SD 44.7 fl High 35.1-43.9 [facility] Comment on above: Performed By: #### L 350.1800 #### [facility] [address] [place], [address] WBC (Bld) [#/Vol] 10.9 10*3/uL Normal 4.4-11.0 [place] Comment on above: Performed By: #### L 350.1800 #### [facility] [address] [place], [address] Glucose Challenge Gest 1H 50 janny 01-18-2024 GLU GEST 50g 1H 97 mg/dL Normal 70-140 [facility] Comment on above: Performed By: #### L 350.1800 #### [facility] [address] [place], [address] HIV - WCHon 01-18-2024 HIV Non-Reactive Normal Nonreactive [facility] Comment on above: Performed By: #### L 350.1800 #### [facility] [address] [place], [address] L509.8000on 01-18-2024 Syphilis Abs Non-Reactive Normal [facility] Comment on above: Performed By: #### L 350.1800 #### [facility] [address] [place], [address] Contract Administrator Office Visit Reporton 01-18-2024 Contract Administrator Office Visit Report [facility] [address], [address] [place] [address] OFFICE VISIT Date of Service: 01/18/24 MR#: [id number] Acct: [id number] Name: JOEL HINTON Rep #: [id number] : 1995 Provider: Dr. Verónica Ho DO Age/Sex: 28/F Location: [facility] Status: Signed Intake Vital Signs 11/09/23 14:07 01/04/24 14:51 01/18/24 13:43 Height 5 ft 8 in 5 ft 8 in 5 ft 8 in Weight: 315 lb BMI 47.9 BP 114/78 Intake Visit Reasons: 28 WK OB Chief Complaint: 28 Week OB Resource Teacher Required: No Is patient in pain?: No Allergies coconut Allergy (Severe, Verified 01/18/24 13:45) Hives Medications ???Medication ???Instructions ???Recorded ???Confirmed ???Type PNV 178-FA 180 mcg-om3 35 mg-dha 1 tab PO DAILY 09/07/23 01/18/24 History 25 mg-epa 5 mg-fish oil chew tablet pyridoxine (vitamin B6) 25 mg 25 mg PO DAILY 09/07/23 01/18/24 History tablet acetaminophen 325 mg tablet 325 mg PO Q6H PRN 12/04/23 01/18/24 History (Tylenol) Last Menstrual Period: 07/06/23 Zika: Zika virus screening: Negative : No PFSH PFSH Medical History Pre-conception counseling Encounter for Nexplanon removal Seasonal allergies Anxiety Surgical History History of tonsillectomy Family History Grandfather Heart disease Depression Lung cancer Diabetes Paternal Father Diabetes Heart disease Depression Grandmother Breast cancer Diabetes Paternal Mother Heart palpitations Social History adopted: No household members: spouse current occupational status: employed current occupation: [employer] pets and animals: Yes (Avoid litterbox) pets and animals: cat(s) history of recent travel: Yes ([place]) out of state: Yes out of country: No sexually active: Yes Smoking Status: Former smoker quit date: 10/20/20 Smokeless tobacco user: other alcohol intake: current alcohol intake frequency: holidays/special occasions only details: not while substance use type: does not use well-balanced diet: rarely or never caffeine: No eating out: 1-3 times/week during the past year weight has: remained stable what type of physical activity do you participate in: walking frequency: 1-2 times per week duration: 45-60 minutes/day darien/yazidism: Shinto seatbelt use: always do you feel safe at home: Yes additional social history: Aiyana [employer]IR[employer] of [employer] History 2 Elective abortions Hx Para 0 Spontaneous abortions 1 Hx # Term Pregnancies Ectopic pregnancies Hx # Pregnancies Multiple births # of living children 0 Past Pregnancies Del. Date Name GA/Weeks Outcome Route Bth Weight Gen [facility] FOB Unknown 03/02/23 chemical 4 spontaneous HPI 28 WK OB Details: JOEL HINTON is a 28 year old who presents for routine OB visit. OB Visit LING Calculator Estimated Delivery Date Method Current WG Current Estimate 04/11/24 LMP (Certain) 28w 0d Expected Delivery Route/Plan Labor Preferences- CB/BF classes: [] labor support person: [] labor intervention preferences: [] pain management options preferred: [] cut cord/dad catch: [] : [] PP control planned: [] discussed possible routes of delivery and associated risks: [] special requests: [] Specific Issue/Plans Covid status: [] Flu vaccine: [] Tdap vaccine: [] Rhogam: [] LARC form signed: [] Problem list reviewed and updated with the most current plan of care details and appropriate orders placed. Relevant counseling for the gestational age provided. Continue routine care and follow up unless otherwise noted in visit notes/problem list details Initial Weight: Not Recorded Date -???-???-???-???-??? -???-???-???-???-??? -???-???- EGA Weight BP Urine Prot -???-???-???-???-??? -???-???-???-???-??? -???-???- Glucose FHR FuHt Pres Dilation -???-???-???-???-??? -???-???-???-???-??? -???-???- Effaced St Visit Note 09/11/23 -???-???-???-???-??? -???-???-???-???-??? -???-???- 9w 4d 318 lb 318 lb 112/73 -???-???-???-???-??? -???-???-???-???-??? -???-???- 174 -???-???-???-???-??? -???-???-???-???-??? -???-???- KW- CRL cons with dates. To get NIPT and carrier order at next visit. 10/12/23 -???-???-???-???-??? -???-???-???-???-??? -???-???- 14w 0d 316 lb 6 oz 122/76 Negative -???-???-???-???-??? -???-???-???-???-??? -???-???- Negative 153 -???-???-???-???-??? -???-???-???-???-??? -???-???- JV- no compl aints today. ne (more content not included)... Normal [facility] Contract Administrator Office Visit Reporton 01-04-2024 Contract Administrator Office Visit Report [facility] [address], [address] [place] [address] OFFICE VISIT Date of Service: 01/04/24 MR#: [id number] Acct: [id number] Name: JOEL HINTON Rep #: [id number] : 1995 Provider: Dr. Verónica Ho DO Age/Sex: 28/F Location: [facility] Status: Signed Intake Vital Signs 11/09/23 14:07 12/04/23 14:27 01/04/24 14:46 01/04/24 14:51 Height 5 ft 8 in 5 ft 8 in 5 ft 8 in 5 ft 8 in Weight: 313 lb 2 oz 313 lb BMI 47.6 47.5 BP 107/71 73/49 L Intake Visit Reasons: 26 WK OB Resource Teacher Required: No Is patient in pain?: No Allergies coconut Allergy (Severe, Verified 01/04/24 14:47) Hives Medications ???Medication ???Instructions ???Recorded ???Confirmed ???Type PNV 178-FA 180 mcg-om3 35 mg-dha 1 tab PO DAILY 09/07/23 01/04/24 History 25 mg-epa 5 mg-fish oil chew tablet pyridoxine (vitamin B6) 25 mg 25 mg PO DAILY 09/07/23 01/04/24 History tablet acetaminophen 325 mg tablet 325 mg PO Q6H PRN 12/04/23 01/04/24 History (Tylenol) Last Menstrual Period: 07/06/23 Zika: Zika virus screening: Negative : No Have you fallen in the past year?: No PFSH PFSH Medical History Pre-conception counseling Encounter for Nexplanon removal Seasonal allergies Anxiety Surgical History History of tonsillectomy Family History Grandfather Heart disease Depression Lung cancer Diabetes Paternal Father Diabetes Heart disease Depression Grandmother Breast cancer Diabetes Paternal Mother Heart palpitations Social History adopted: No household members: spouse current occupational status: employed current occupation: [employer] pets and animals: Yes (Avoid litterbox) pets and animals: cat(s) history of recent travel: Yes ([place]) out of state: Yes out of country: No sexually active: Yes Smoking Status: Former smoker quit date: 10/20/20 Smokeless tobacco user: other alcohol intake: current alcohol intake frequency: holidays/special occasions only details: not while substance use type: does not use well-balanced diet: rarely or never caffeine: No eating out: 1-3 times/week during the past year weight has: remained stable what type of physical activity do you participate in: walking frequency: 1-2 times per week duration: 45-60 minutes/day darien/yazidism: Shinto seatbelt use: always do you feel safe at home: Yes additional social history: Aiyana RAMIRES of [employer] History 2 Elective abortions Hx Para 0 Spontaneous abortions 1 Hx # Term Pregnancies Ectopic pregnancies Hx # Pregnancies Multiple births # of living children 0 Past Pregnancies Del. Date Name GA/Weeks Outcome Route Bth Weight Gen Labor Lgth Anesthesia Del Locatn Provider FOB Unknown 03/02/23 chemical 4 spontaneous HPI 26 WK OB Details: JOEL HINTON is a 28 year old who presents for routine OB visit. OB Visit LING Calculator Estimated Delivery Date Method Current WG Current Estimate 04/11/24 LMP (Certain) 26w 3d Expected Delivery Route/Plan Labor Preferences- CB/BF classes: [] labor support person: [] labor intervention preferences: [] pain management options preferred: [] cut cord/dad catch: [] : [] PP control planned: [] discussed possible routes of delivery and associated risks: [] special requests: [] Specific Issue/Plans Covid status: [] Flu vaccine: [] Tdap vaccine: [] Rhogam: [] LARC form signed: [] Problem list reviewed and updated with the most current plan of care details and appropriate orders placed. Relevant counseling for the gestational age provided. Continue routine care and follow up unless otherwise noted in visit notes/problem list details Initial Weight: Not Recorded Date -???-???-???-???-??? -???-???-???-???-??? -???-???- EGA Weight BP Urine Prot -???-???-???-???-??? -???-???-???-???-??? -???-???- Glucose FHR FuHt Pres Dilation -???-???-???-???-??? -???-???-???-???-??? -???-???- Effaced St Visit Note 09/11/23 -???-???-???-???-??? -???-???-???-???-??? -???-???- 9w 4d 318 lb 318 lb 112/73 -???-???-???-???-??? -???-???-???-???-??? -???-???- 174 -???-???-???-???-??? -???-???-???-???-??? -???-???- KW- CRL cons with dates. To get NIPT and carrier order at next visit. 10/12/23 -???-???-???-???-??? -???-???-???-???-??? -???-???- 14w 0d 316 lb 6 oz 122/76 Negative -???-???-???-???-??? -???-???-???-???-??? -???-???- Negative 153 -???-???-???-???-??? -???-???-???-???-??? (more content not included)... Normal [facility] Contract Administrator Office Visit Reporton 12-04-2023 Contract Administrator Office Visit Report [facility] [address], [facility] [address] [place] [address] OFFICE VISIT Date of Service: 12/04/23 MR#: [id number] Acct: [id number] Name: JOEL HINTON Rep #: [id number] : 1995 Provider: LORI Winston ams Age/Sex: 28/F Location: [facility] Status: Signed Intake Vital Signs 11/09/23 14:07 11/28/23 22:06 12/04/23 14:27 Height 5 ft 8 in 5 ft 8 in 5 ft 8 in Weight: 313 lb 2 oz BMI 47.6 BP 107/71 Intake Visit Reasons: 22 WK OB Chief Complaint: 22 Week OB Resource Teacher Required: No Is patient in pain?: No Allergies coconut Allergy (Severe, Verified 12/04/23 14:27) Hives Medications ???Medication ???Instructions ???Recorded ???Confirmed ???Type PNV 178-FA 180 mcg-om3 35 mg-dha 1 tab PO DAILY 09/07/23 12/04/23 History 25 mg-epa 5 mg-fish oil chew tablet pyridoxine (vitamin B6) 25 mg 25 mg PO DAILY 09/07/23 12/04/23 History tablet acetaminophen 325 mg tablet 325 mg PO Q6H PRN 12/04/23 12/04/23 History (Tylenol) Last Menstrual Period: 07/06/23 Zika: Zika virus screening: Negative : No PFSH PFSH Medical History Pre-conception counseling Encounter for Nexplanon removal Seasonal allergies Anxiety Surgical History History of tonsillectomy Family History Grandfather Heart disease Depression Lung cancer Diabetes Paternal Father Diabetes Heart disease Depression Grandmother Breast cancer Diabetes Paternal Mother Heart palpitations Social History adopted: No household members: spouse current occupational status: employed current occupation: [employer] pets and animals: Yes (Avoid litterbox) pets and animals: cat(s) history of recent travel: Yes ([place]) out of state: Yes out of country: No sexually active: Yes Smoking Status: Former smoker quit date: 10/20/20 Smokeless tobacco user: other alcohol intake: current alcohol intake frequency: holidays/special occasions only details: not while substance use type: does not use well-balanced diet: rarely or never caffeine: No eating out: 1-3 times/week during the past year weight has: remained stable what type of physical activity do you participate in: walking frequency: 1-2 times per week duration: 45-60 minutes/day darien/yazidism: Shinto seatbelt use: always do you feel safe at home: Yes additional social history: Aiyana [employer]IR[employer] of [employer] History 2 Elective abortions Hx Para 0 Spontaneous abortions 1 Hx # Term Pregnancies Ectopic pregnancies Hx # Pregnancies Multiple births # of living children 0 Past Pregnancies Del. Date Name GA/Weeks Outcome Route Bth Weight [facility] Unknown 03/02/23 chemical 4 spontaneous HPI 22 WK OB Details: JOEL HINTON is a 28 year old who presents for routine OB visit. OB Visit LING Calculator Estimated Delivery Date Method Current WG Current Estimate 04/11/24 LMP (Certain) 21w 4d Expected Delivery Route/Plan Labor Preferences- CB/BF classes: [] labor support person: [] labor intervention preferences: [] pain management options preferred: [] cut cord/dad catch: [] : [] PP control planned: [] discussed possible routes of delivery and associated risks: [] special requests: [] Specific Issue/Plans Covid status: [] Flu vaccine: [] Tdap vaccine: [] Rhogam: [] LARC form signed: [] Problem list reviewed and updated with the most current plan of care details and appropriate orders placed. Relevant counseling for the gestational age provided. Continue routine care and follow up unless otherwise noted in visit notes/problem list details Initial Weight: Not Recorded Date -???-???-???-???-??? -???-???-???-???-??? -???-???- EGA Weight BP Urine Prot -???-???-???-???-??? -???-???-???-???-??? -???-???- Glucose FHR FuHt Pres Dilation -???-???-???-???-??? -???-???-???-???-??? -???-???- Effaced St Visit Note 09/11/23 -???-???-???-???-??? -???-???-???-???-??? -???-???- 9w 4d 318 lb 318 lb 112/73 -???-???-???-???-??? -???-???-???-???-??? -???-???- 174 -???-???-???-???-??? -???-???-???-???-??? -???-???- KW- CRL cons with dates. To get NIPT and carrier order at next visit. 10/12/23 -???-???-???-???-??? -???-???-???-???-??? -???-???- 14w 0d 316 lb 6 oz 122/76 Negative -???-???-???-???-??? -???-???-???-???-??? -???-???- Negative 153 -???-???-???-???-??? -???-???-???-???-??? -???-???- JV- no compl aints today. needs w (more content not included)... Normal [facility] 12 Lead EKGon 11-28-2023 12 Lead EKG [facility] [address] [place] [address] 12 Lead EKG 11/28/23 2219 MR#: [id number] Acct: [id number] Name: JOEL HINTON Rep #: [id number] : 1995 28 From: Ephraim Philip MD Attending Dr: Status: DEP ER Ordering Dr: Jack Zelaya MD Date: 11/28/23 Location: ED Sex: F C Admitted: Test Reason : CP Blood Pressure : / mmHG Vent. Rate : 091 BPM Atrial Rate : 091 BPM P-R Int : 154 ms QRS Dur : 092 ms QT Int : 380 ms P-R-T Axes : 039 036 022 degrees QTc Int : 467 ms Normal sinus rhythm Normal ECG Confirmed by ELIZABETH GARZA, EPHRAIM ([id number]), associate entertainment editor SAUL GAN ([id number]) on 11/29/2023 1:53:53 PM Referred By: Confirmed By:EPHRAIM PHILIP MD 11/29/23 1353 Date Ephraim Philip MD CC: Dr. Jack Zelaya MD; No Primary Care Physician Signed Normal [facility] CBC W/Diff, Automatedon 09-0 -2023 Absolute Lymph 2.23 X10 3/uL Normal 0.83-4.51 [facility] Comment on above: Performed By: #### L 350.1800 #### [facility] [address] [place], [address] Absolute Neut 8.3 X10 3/uL High 2.0-7.7 [facility] Comment on above: Performed By: #### L 350.1800 #### [facility] [address] [place], [address] Basophils/100 WBC (Bld) 0.4 % Normal 0-1 [facility] Comment on above: Performed By: #### L 350.1800 #### [facility] [address] [place], [address] Eosinophils/100 WBC (Bld) 1.4 % Normal 0-5 [facility] Comment on above: Performed By: #### L 350.1800 #### [facility] [address] [place], [address] Erythrocyte distribution width (RBC) [Ratio] 13.9 % Normal 11.6-14.6 [facility] Comment on above: Performed By: #### L 350.1800 #### [facility] [address] [place], [address] Hematocrit (Bld) [Volume fraction] 35.5 % Low 37-47 [facility] Comment on above: Performed By: #### L 350.1800 #### [facility] [address] [place], [address] Hemoglobin (Bld) [Mass/Vol] 11.4 g/dL Low 12.0-15.0 [facility] Comment on above: Performed By: #### L 350.1800 #### [facility] [address] [facility] [place], [address] IG% 0.400 Normal 0.0-0.9 [facility] Comment on above: Result Comment: IG% - Immature Granulocytes (promyelocytes, myelocytes and metamyelocytes) > 1% indicates that a LEFT SHIFT is Present. Performed By: #### L 350.1800 #### [facility] [facility] [place], [address] Lymphocytes/100 WBC (Bld) 19.6 % Normal 19-41 [facility] Comment on above: Performed By: #### L 350.1800 #### [facility] [address] [place] [address]. [place], [address] MCH (RBC) [Entitic mass] 27.5 pg Normal 27.0-32.0 [facility] Comment on above: Performed By: #### L 350.1800 #### [facility] [address] [facility] [place], [address] MCHC (RBC) [Mass/Vol] 32.1 g/dL Normal 32-36 [facility] Comment on above: Performed By: #### L 350.1800 #### [facility] [address] [facility] [place], [address] MCV (RBC) [Entitic vol] 85.7 fL Normal 81-99 [facility] Comment on above: Performed By: #### L 350.1800 #### [facility] [address] [facility] [place], [address] Monocytes/100 WBC (Bld) 5.5 % Normal 0-10 [facility] Comment on above: Performed By: #### L 350.1800 #### [facility] [address] [place], [address] Neutrophils/100 WBC (Bld) 72.7 % High 47-70 [facility] Comment on above: Performed By: #### L 350.1800 #### [facility] [address] [place], [address] Nucleated RBC (Bld) [#/Vol] 0 10*3/uL Normal 0-5 [facility] Comment on above: Performed By: #### L 350.1800 #### [facility] [address] [place], [address] Platelet mean volume (Bld) [Entitic vol] 10.6 fL Normal 6.2-12.0 [facility] Comment on above: Performed By: #### L 350.1800 #### [facility] [address] [place], [address] Platelets (Bld) [#/Vol] 249 10*3/uL Normal 150-450 [facility] Comment on above: Performed By: #### L 350.1800 #### [facility] [address] [place], [address] RBC (Bld) [#/Vol] 4.14 10*6/uL Low 4.2-5.4 [place] Comment on above: Performed By: #### L 350.1800 #### [facility] [address] [place], [address] RDW SD 43.2 fl Normal 35.1-43.9 [facility] Comment on above: Performed By: #### L 350.1800 #### [facility] [address] [place], [address] WBC (Bld) [#/Vol] 11.4 10*3/uL High 4.4-11.0 [place] Comment on above: Performed By: #### L 350.1800 #### [facility] [address] [place], [address] Comprehensive Metabolic Prof ilon 11-28-2023 Albumin [Mass/Vol] 3.0 g/dL Low 3.2-5.0 [facility] Comment on above: Performed By: #### L 350.1800 #### [facility] [address] [place], [address] Albumin/Globulin [Mass ratio] 0.8 {ratio} Low 0.9-2.4 [facility] Comment on above: Performed By: #### L 350.1800 #### [facility] [address] [place], [address] ALK P 78 U/L Normal 45-117 [facility] Comment on above: Performed By: #### L 350.1800 #### [facility] [address] [place], [address] ALT [Catalytic activity/Vol] 45 U/L Normal 13-56 [facility] Comment on above: Performed By: #### L 350.1800 #### [facility] [address] [place], [address] AST [Catalytic activity/Vol] 20 U/L Normal 15-37 [facility] Comment on above: Performed By: #### L 350.1800 #### [facility] [address] [place], [address] Bilirubin [Mass/Vol] 0.30 mg/dL Normal 0.20-1.00 [facility] Comment on above: Result Comment: For patients on eltrombopag therapy, use of Dimension [place] TBIL is not recommended. Performed By: #### L 350.1800 #### [facility] [address] [place], [address] BUN/CRE 17.2 RATIO Normal 10-20 [facility] Comment on above: Performed By: #### L 350.1800 #### [facility] [address] [place], [address] CA,Total 9.1 mg/dL Normal 8.5-10.1 [facility] Comment on above: Performed By: #### L 350.1800 #### [facility] [address] [place], [address] Chloride [Moles/Vol] 106 mmol/L Normal 98-107 [facility] Comment on above: Performed By: #### L 350.1800 #### [facility] [address] [place], [address] CO2 [Moles/Vol] 25.0 mmol/L Normal 21.0-32.0 [facility] Comment on above: Performed By: #### L 350.1800 #### [facility] [address] [place], [address] Creatinine [Mass/Vol] 0.58 mg/dL Normal 0.55-1.02 [facility] Comment on above: Result Comment: The validity of the calculated GFR GFRAA in patients over 70 years has not been determined. Clinical correlation is essential. Performed By: #### L 350.1800 #### [facility] [address] [place], [address] EST GFR - AA 157 mL/min Normal >60 [facility] Comment on above: Result Comment: Afri can Malagasy GFR Calc Performed By: #### L 350.1800 #### [facility] [address] [place], [address] GAP 5 Normal 5-15 [facility] Comment on above: Performed By: #### L 350.1800 #### [facility] [address] [place], [address] GFR/1.73 sq M.predicted among non-blacks MDRD (S/P/Bld) [Vol rate/Area] 130 mL/min/{1.73_m2} Normal >60 [facility] Comment on above: Result Comment: Non- GFR Calc Performed By: #### L 350.1800 #### [facility] [address] [place], [address] Globulin (S) [Mass/Vol] 3.8 g/dL Normal 2.2-4.2 [facility] Comment on above: Performed By: #### L 350.1800 #### [facility] [address] [place], [address] Glucose [Mass/Vol] 99 mg/dL Normal 74-106 [facility] Comment on above: Performed By: #### L 350.1800 #### [facility] [address] [place], [address] Potassium [Moles/Vol] 3.6 mmol/L Normal 3.5-5.1 [facility] Comment on above: Performed By: #### L 350.1800 #### [facility] [address] [place], [address] Sodium [Moles/Vol] 136 mmol/L Normal 136-145 [facility] Comment on above: Performed By: #### L 350.1800 #### [facility] [address] [place], [address] T PROT 6.8 g/dL Normal 6.4-8.2 [facility] Comment on above: Performed By: #### L 350.1800 #### [facility] [address] [place], [address] Urea nitrogen [Mass/Vol] 10 mg/dL Normal 7-18 [facility] Comment on above: Performed By: #### L 350.1800 #### [facility] [address] [place], [address] Emergency Department Summary on 11-28-2023 Emergency Department Summary [facility] Medical Records Department [address] [place] [address] Emergency Department Summary 11/28/23 MR#: [id number] Acct: [id number] Name: JOEL HINTON Rep #: [id number] : 1995 28 From: Jack Zelaya MD PCP: Care Physician,No Primary Status:REG ER Location: ED HPI History of Present Illness Chief Complaint: Chest Pain Narrative Narrative: 28-year-old female, G2, P0 at almost 21 weeks gestation, patient of Dr. Freida Becker, presents with bilateral flank pain that she has had all day today. She states that while she has had migraines, those of improved after wearing her hair down. She has had headache all day, and pain in her bilateral sides that have been bothering her all day. She denies any vaginal bleeding or pelvic pain or cramping. She has not taking anything for analgesia because she states she lost the safe medication list when she moved 2 weeks ago. She presents to the emergency department wanting to be checked out and to make sure that everything is okay. She states that her first was a chemical , and this is the first is that she has been along in her . No exacerbating or alleviating factors. No new leg swelling or other symptoms. [facility] Medical History Pre-conception counseling Encounter for Nexplanon removal Seasonal allergies Anxiety Home Medications ???Medication ???Instructions ???Recorded ???Last Taken ???Type PNV 178-FA 180 mcg-om3 35 mg-dha 1 tab PO DAILY 09/07/23 Unknown History 25 mg-epa 5 mg-fish oil chew tablet pyridoxine (vitamin B6) 25 mg 25 mg PO DAILY 09/07/23 Unknown History tablet Allergy/AdvReac Type Severity Reaction Status Date / Time coconut Allergy Severe Hives Verified 11/28/23 22:06 Family History Grandfather Heart disease Depression Lung cancer Diabetes Paternal Father Diabetes Heart disease Depression Grandmother Breast cancer Diabetes Paternal Mother Heart palpitations Surgical History History of tonsillectomy Social History adopted: No household members: spouse current occupational status: employed current occupation: [employer] pets and animals: Yes (Avoid litterbox) pets and animals: cat(s) history of recent travel: Yes ([place]) out of state: Yes out of country: No sexually active: Yes Smoking Status: Former smoker quit date: 10/20/20 Smokeless tobacco user: other alcohol intake: current alcohol intake frequency: holidays/special occasions only details: not while substance use type: does not use well-balanced diet: rarely or never caffeine: No eating out: 1-3 times/week during the past year weight has: remained stable what type of physical activity do you participate in: walking frequency: 1-2 times per week duration: 45-60 minutes/day darien/yazidism: Shinto seatbelt use: always do you feel safe at home: Yes additional social history: [employer] ROS ROS ED ROS Narrative Constitutional: No fever, no chills. HEENT: No sore throat. No neck pain. No loss of vision. No rhinorrhea. Cardiovascular: No chest pain. No palpitations. No pedal edema. Respiratory: No cough, no shortness of breath. Abdominal: No abdominal pain. No nausea. No vomiting. Bilateral flank pain. Genitourinary: No dysuria. No hematuria. No vaginal bleeding, no pelvic pain or pressure. Musculoskeletal: No myalgias. No arthralgias. Neurologic: Positive headaches. No dizziness. No lightheadedness. Skin: No rash. No change in color. Psychiatric: No depression. No anxiety. EXAM Physical Exam Narrative Exam Narrative: Afebrile. Vital signs noted. Nontoxic-appearing. PERRL, EOMI. Regular rate and rhythm. Lungs are clear to auscultation bilaterally. Abdomen soft nontender with normal active bowel sounds. No CVA tenderness to percussion bilaterally. Neurological examination nonfocal and nonlateralizing. No pitting edema bilaterally. Const Vital Signs: 11/28/23 22:06 11/28/23 23:05 11/29/23 00:00 Temperature 97.6 F L 98.2 F Temperature Source Temporal Pulse Rate 100 71 77 Respiratory Rate 18 16 16 Blood Pressure 129/75 H 120/66 124/64 H Blood Pressure Mean 93 84 84 Pulse Ox 96 98 98 Oxygen Delivery Method Room Air MDM MDM MDM Narrative Medical decision making narrative: Differential diagnosis includes but not limited to preeclampsia versus eclampsia versus migraine headache versus ureterolithiasis versus round ligament pain. I have low suspicion for threatened miscarriage as she is not having any vaginal bleeding or pelvic pressure. I (more content not included)... Normal [facility] Urinalysis, Completeon 11-27 AMORPHOUS 1+ Normal [facility] Comment on above: Order Comment: Send Specimen For (Specify): Studies @ [facility] Lab:Routine Time of Procedure: 0600 Date of Procedure: 04/19/24 Reason specimen being sent to pathology (Hx/complications): routine Type of specimen: Placenta Type of procedure performed: Primary Section Performed By: #### L 350.1800 #### [facility] [address] [place], [address] BACTERIA 1+ /hpf Normal None Seen [facility] Comment on above: Order Comment: Send Specimen For (Specify): Studies @ [facility] Lab:Routine Time of Procedure: 0600 Date of Procedure: 04/19/24 Reason specimen being sent to pathology (Hx/complications): routine Type of specimen: Placenta Type of procedure performed: Primary Section Performed By: #### L 350.1800 #### [facility] [address] [place], [address] EPI,SQUAMOUS 10-25 SEEN Normal 5-10 [facility] Comment on above: Order Comment: Send Specimen For (Specify): Studies @ [facility] Lab:Routine Time of Procedure: 0600 Date of Procedure: 04/19/24 Reason specimen being sent to pathology (Hx/complications): routine Type of specimen: Placenta Type of procedure performed: Primary Section Performed By: #### L 350.1800 #### [facility] [address] [facility] [place], [address] EPI,TRANSITION 0-5 SEEN Normal 0-5 [facility] Comment on above: Order Comment: Send Specimen For (Specify): Studies @ [facility] Lab:Routine Time of Procedure: 0600 Date of Procedure: 04/19/24 Reason specimen being sent to pathology (Hx/complications): routine Type of specimen: Placenta Type of procedure performed: Primary Section Performed By: #### L 350.1800 #### [facility] [address] [facility] [id number] WBC 0-5 SEEN Normal 0-5 [facility] Comment on above: Order Comment: Send Specimen For (Specify): Studies @ [facility] Lab:Routine Time of Procedure: 0600 Date of Procedure: 04/19/24 Reason specimen being sent to pathology (Hx/complications): routine Type of specimen: Placenta Type of procedure performed: Primary Section Performed By: #### L 350.1800 #### [facility] [address] [place] [facility] [id number] Mucus Ql (Urine sed) 0 SEEN Normal [facility] Comment on above: Order Comment: Send Specimen For (Specify): Studies @ [facility] Lab:Routine Time of Procedure: 0600 Date of Procedure: 04/19/24 Reason specimen being sent to pathology (Hx/complications): routine Type of specimen: Placenta Type of procedure performed: Primary Section Performed By: #### L 350.1800 #### [facility] [address] [facility] [id number] RBC 0 SEEN Normal 0-5 [facility] Comment on above: Order Comment: Send Specimen For (Specify): Studies @ [facility] Lab:Routine Time of Procedure: 0600 Date of Procedure: 04/19/24 Reason specimen being sent to pathology (Hx/complications): routine Type of specimen: Placenta Type of procedure performed: Primary Section Performed By: #### L 350.1800 #### [facility] [address] [facility] [address] Contract Administrator Office Visit Reporton 11-09-2023 Contract Administrator Office Visit Report [facility] [address], [address] [place] [address] OFFICE VISIT Date of Service: 11/09/23 MR#: [id number] Acct: [id number] Name: JOEL HINTON Rep #: [id number] : 1995 Provider: LORI Winston ams Age/Sex: 28/F Location: [facility] Status: Signed Intake Vital Signs 10/12/23 14:37 11/09/23 14:07 Height 5 ft 8 in 5 ft 8 in Weight: 315 lb 2 oz BMI 47.9 BP 117/78 Intake Visit Reasons: 18 WK OB Resource Teacher Required: No Is patient in pain?: No Allergies coconut Allergy (Severe, Verified 11/09/23 14:09) Hives Medications ???Medication ???Instructions ???Recorded ???Confirmed ???Type PNV 178-FA 180 mcg-om3 35 mg-dha tab PO 09/07/23 11/09/23 History 25 mg-epa 5 mg-fish oil chew tablet pyridoxine (vitamin B6) 25 mg 25 mg PO DAILY 09/07/23 11/09/23 History tablet Last Menstrual Period: 07/06/23 PFSH PFSH Medical History Pre-conception counseling Encounter for Nexplanon removal Seasonal allergies Anxiety Surgical History History of tonsillectomy Family History Grandfather Heart disease Depression Lung cancer Diabetes Paternal Father Diabetes Heart disease Depression Grandmother Breast cancer Diabetes Paternal Mother Heart palpitations Social History adopted: No household members: spouse current occupational status: employed current occupation: [employer] pets and animals: Yes (Avoid litterbox) pets and animals: cat(s) history of recent travel: Yes ([place]) out of state: Yes out of country: No sexually active: Yes Smoking Status: Former smoker quit date: 10/20/20 Smokeless tobacco user: other alcohol intake: current alcohol intake frequency: holidays/special occasions only details: not while substance use type: does not use well-balanced diet: rarely or never caffeine: No eating out: 1-3 times/week during the past year weight has: remained stable what type of physical activity do you participate in: walking frequency: 1-2 times per week duration: 45-60 minutes/day darien/yazidism: Shinto seatbelt use: always do you feel safe at home: Yes additional social history: [employer] History 2 Elective abortions Hx Para 0 Spontaneous abortions 1 Hx # Term Pregnancies Ectopic pregnancies Hx # Pregnancies Multiple births # of living children 0 Past Pregnancies Del. Date Name GA/Weeks Outcome Route Bth Weight Gen Labor Lgth Anesthesia Del Locatn Provider FOB Unknown 03/02/23 chemical 4 spontaneous HPI 18 WK OB Details: JOEL HINTON is a 28 year old who presents for routine OB visit. OB Visit LING Calculator Estimated Delivery Date Method Current WG Current Estimate 04/11/24 LMP (Certain) 18w 0d Expected Delivery Route/Plan Labor Preferences- CB/BF classes: [] labor support person: [] labor intervention preferences: [] pain management options preferred: [] cut cord/dad catch: [] : [] PP control planned: [] discussed possible routes of delivery and associated risks: [] special requests: [] Specific Issue/Plans Covid status: [] Flu vaccine: [] Tdap vaccine: [] Rhogam: [] LARC form signed: [] Problem list reviewed and updated with the most current plan of care details and appropriate orders placed. Relevant counseling for the gestational age provided. Continue routine care and follow up unless otherwise noted in visit notes/problem list details Initial Weight: Not Recorded Date -???-???-???-???-??? -???-???-???-???-??? -???-???- EGA Weight BP Urine Prot -???-???-???-???-??? -???-???-???-???-??? -???-???- Glucose FHR FuHt Pres Dilation -???-???-???-???-??? -???-???-???-???-??? -???-???- Effaced St Visit Note 09/11/23 -???-???-???-???-??? -???-???-???-???-??? -???-???- 9w 4d 318 lb 318 lb 112/73 -???-???-???-???-??? -???-???-???-???-??? -???-???- 174 -???-???-???-???-??? -???-???-???-???-??? -???-???- KW- CRL cons with dates. To get NIPT and carrier order at next visit. 10/12/23 -???-???-???-???-??? -???-???-???-???-??? -???-???- 14w 0d 316 lb 6 oz 122/76 Negative -???-???-???-???-??? -???-???-???-???-??? -???-???- Negative 153 -???-???-???-???-??? -???-???-???-???-??? -???-???- JV- no compl aints today. needs work restriction letter. Needs box kit for NIPT and carrier testing. 11/09/23 -???-???-???-???-??? -???-???-???-???-??? -???-???- 18w 0d 315 lb 2 oz 117/78 -???-???-???-???-??? -???-???-???-???-??? -???- (more content not included)... Normal [facility] CBC W/Diff, Automatedon 07- Absolute Lymph 1.91 X10 3/uL Normal 0.83-4.51 [facility] Comment on above: Performed By: #### L 900.0098, L3890.6100, L3890.6005, L509.8000, L509.4005, L3890.6300, L501.9985, L100.0100, BTS ####[facility] [address] [place], [address] Absolute Neut 7.0 X10 3/uL Normal 2.0-7.7 [facility] Comment on above: Performed By: #### L 900.0098, L3890.6100, L3890.6005, L509.8000, L509.4005, L3890.6300, L501.9985, L100.0100, BTS ####[facility] [address] [place], [address] Basophils/100 WBC (Bld) 0.3 % Normal 0-1 [facility] Comment on above: Performed By: #### L 900.0098, L3890.6100, L3890.6005, L509.8000, L509.4005, L3890.6300, L501.9985, L100.0100, BTS ####[facility] [address] [place], [address] Eosinophils/100 WBC (Bld) 1.1 % Normal 0-5 [facility] Comment on above: Performed By: #### L 900.0098, L3890.6100, L3890.6005, L509.8000, L509.4005, L3890.6300, L501.9985, L100.0100, BTS ####[facility] [address] [place], [address] Erythrocyte distribution width (RBC) [Ratio] 13.7 % Normal 11.6-14.6 [facility] Comment on above: Performed By: #### L 900.0098, L3890.6100, L3890.6005, L509.8000, L509.4005, L3890.6300, L501.9985, L100.0100, BTS ####[facility] [address] [place], [address]( Hematocrit (Bld) [Volume fraction] 38.5 % Normal 37-47 [facility] Comment on above: Performed By: #### L 900.0098, L3890.6100, L3890.6005, L509.8000, L509.4005, L3890.6300, L501.9985, L100.0100, BTS ####[facility] [address] [place], [address] Hemoglobin (Bld) [Mass/Vol] 12.4 g/dL Normal 12.0-15.0 [facility] Comment on above: Performed By: #### L 900.0098, L3890.6100, L3890.6005, L509.8000, L509.4005, L3890.6300, L501.9985, L100.0100, BTS ####[facility] [address] [facility] [place], [address] IG% 0.500 Normal 0.0-0.9 [facility] Comment on above: Result Comment: IG% - Immature Granulocytes (promyelocytes, myelocytes and metamyelocytes) > 1% indicates that a LEFT SHIFT is Present. Performed By: #### L 900.0098, L3890.6100, L3890.6005, L509.8000, L509.4005, L3890.6300, L501.9985, L100.0100, BTS ####[facility] [address] [place], [address] Lymphocytes/100 WBC (Bld) 19.8 % Normal 19-41 [facility] Comment on above: Performed By: #### L 900.0098, L3890.6100, L3890.6005, L509.8000, L509.4005, L3890.6300, L501.9985, L100.0100, BTS ####[facility] [address] [place], [address] MCH (RBC) [Entitic mass] 27.7 pg Normal 27.0-32.0 [facility] Comment on above: Performed By: #### L 900.0098, L3890.6100, L3890.6005, L509.8000, L509.4005, L3890.6300, L501.9985, L100.0100, BTS ####[facility] [address] [place], [address] MCHC (RBC) [Mass/Vol] 32.2 g/dL Normal 32-36 [facility] Comment on above: Performed By: #### L 900.0098, L3890.6100, L3890.6005, L509.8000, L509.4005, L3890.6300, L501.9985, L100.0100, BTS ####[facility] [address] [facility] [place], [address] MCV (RBC) [Entitic vol] 86.1 fL Normal 81-99 [facility] Comment on above: Performed By: #### L 900.0098, L3890.6100, L3890.6005, L509.8000, L509.4005, L3890.6300, L501.9985, L100.0100, BTS ####[facility] [address] [place], [address] Monocytes/100 WBC (Bld) 5.9 % Normal 0-10 [facility] Comment on above: Performed By: #### L 900.0098, L3890.6100, L3890.6005, L509.8000, L509.4005, L3890.6300, L501.9985, L100.0100, BTS ####[facility] [address] [place], [address] Neutrophils/100 WBC (Bld) 72.4 % High 47-70 [facility] Comment on above: Performed By: #### L 900.0098, L3890.6100, L3890.6005, L509.8000, L509.4005, L3890.6300, L501.9985, L100.0100, BTS ####[facility] [address] [place], [address] Nucleated RBC (Bld) [#/Vol] 0 10*3/uL Normal 0-5 [facility] Comment on above: Performed By: #### L 900.0098, L3890.6100, L3890.6005, L509.8000, L509.4005, L3890.6300, L501.9985, L100.0100, BTS ####[facility] [address] [place], [address] Platelet mean volume (Bld) [Entitic vol] 10.2 fL Normal 6.2-12.0 [facility] Comment on above: Performed By: #### L 900.0098, L3890.6100, L3890.6005, L509.8000, L509.4005, L3890.6300, L501.9985, L100.0100, BTS ####[facility] [address] [place], [address] Platelets (Bld) [#/Vol] 260 10*3/uL Normal 150-450 [facility] Comment on above: Performed By: #### L 900.0098, L3890.6100, L3890.6005, L509.8000, L509.4005, L3890.6300, L501.9985, L100.0100, BTS ####[facility] [address] [place], [address] RBC (Bld) [#/Vol] 4.47 10*6/uL Normal 4.2-5.4 [place] Comment on above: Performed By: #### L 900.0098, L3890.6100, L3890.6005, L509.8000, L509.4005, L3890.6300, L501.9985, L100.0100, BTS ####[facility] [address] [place], [address] RDW SD 42.7 fl Normal 35.1-43.9 [facility] Comment on above: Performed By: #### L 900.0098, L3890.6100, L3890.6005, L509.8000, L509.4005, L3890.6300, L501.9985, L100.0100, BTS ####[facility] [address] [place], [address] WBC (Bld) [#/Vol] 9.6 10*3/uL Normal 4.4-11.0 [facility] Comment on above: Performed By: #### L 900.0098, L3890.6100, L3890.6005, L509.8000, L509.4005, L3890.6300, L501.9985, L100.0100, BTS ####[facility] [address] [place], [address] HIV - WCHon 10-15-2023 HIV Non-Reactive Normal Nonreactive [facility] Comment on above: Order Comment: Reaso n for Exam: Performed By: #### L 900.0098, L3890.6100, L3890.6005, L509.8000, L509.4005, L3890.6300, L501.9985, L100.0100, BTS ####[facility] [address] [place], [address] Hemoglobin A1con 10-15-2023 HbA1c (Bld) [Mass fraction] 4.9 % Normal 3.8-5.6 [facility] Comment on above: Result Comment: Norm al < 5.7 % Prediabetic 5.7 - 6.4 % Diabetic >or= 6.5 % Please note range changes. Performed By: #### L 900.0098, L3890.6100, L3890.6005, L509.8000, L509.4005, L3890.6300, L501.9985, L100.0100, BTS ####[facility] [address] [place], [place], [id number] Hepatitis B Surface Antigeno n 10-15-2023 HEP B Surf Ag Non-Reactive Normal Nonreactive [facility] Comment on above: Order Comment: Reaso n for Exam: Performed By: #### L 900.0098, L3890.6100, L3890.6005, L509.8000, L509.4005, L3890.6300, L501.9985, L100.0100, BTS ####[facility] [address] [place], [address] Hepatitis C Antibodyon 10-14 Hepatitis C AB Non-Reactive Normal Nonreactive [facility] Comment on above: Order Comment: Reaso n for Exam: Result Comment: Non Reactive: < 0.8 Equivocal: >/= 0.8 to < 1.0 Reactive: >/= 1.0 The CDC requires that a reactive/equivocal HCV antibody result be sent out for confirmation. HCV Quant by PCR testing. Performed By: #### L 900.0098, L3890.6100, L3890.6005, L509.8000, L509.4005, L3890.6300, L501.9985, L100.0100, BTS ####[facility] [address] [place], [place], [phone](407) L509.8000on 10-15-2023 Syphilis Abs Non-Reactive Normal [facility] Comment on above: Order Comment: Reaso n for Exam: Performed By: #### L 900.0098, L3890.6100, L3890.6005, L509.8000, L509.4005, L3890.6300, L501.9985, L100.0100, BTS ####[facility] [address] [place], [place], [id number] NATERAon 10-15-2023 NATURA SEE SCANNED REPORT Normal [facility] Comment on above: Performed By: #### L 900.0098, L3890.6100, L3890.6005, L509.8000, L509.4005, L3890.6300, L501.9985, L100.0100, BTS ####[facility] [address] [place], [address] Rubella IgGon 10-15-2023 Rubella IgG Reactive Normal Nonreactive [facility] Comment on above: Order Comment: Reaso n for Exam: Result Comment: Anti body Results Interpretation of Immune Status Non Reactive Presumed Non-Immune Equivocal Equivocal Reactive Presumed Immune Performed By: #### L 900.0098, L3890.6100, L3890.6005, L509.8000, L509.4005, L3890.6300, L501.9985, L100.0100, BTS ####[facility] [address] [place], [place], [phone] Type AND Screenon 10-15-2023 Ab SCREEN GEL Negative Normal [facility] Comment on above: Order Comment: PN Performed By: #### L 900.0098, L3890.6100, L3890.6005, L509.8000, L509.4005, L3890.6300, L501.9985, L100.0100, BTS ####[facility] [address] [place], [place], [id number] Contract Administrator Office Visit Reporton 10-12-2023 Contract Administrator Office Visit Report [facility] [place] [address] OFFICE VISIT Date of Service: 10/12/23 MR#: [id number] Acct: [id number] Name: JOEL HINTON Rep #: [id number] : 1995 Provider: Dr. 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 Is patient in pain?: No Allergies coconut Allergy (Severe, Verified 10/12/23 14:37) Hives Medications ???Medication ???Instructions ???Recorded ???Confirmed ???Type PNV 178-FA 180 mcg-om3 35 mg-dha tab PO 09/07/23 10/12/23 History 25 mg-epa 5 mg-fish oil chew tablet pyridoxine (vitamin B6) 25 mg 25 mg PO DAILY 09/07/23 10/12/23 History tablet Last Menstrual Period: 07/06/23 Zika: Zika virus screening: Negative : No PFSH PFSH Medical History Pre-conception counseling Encounter for Nexplanon removal Seasonal allergies Anxiety Surgical History History of tonsillectomy Family History Grandfather Heart disease Depression Lung cancer Diabetes Paternal Father Diabetes Heart disease Depression Grandmother Breast cancer Diabetes Paternal Mother Heart palpitations Social History adopted: No household members: spouse current occupational status: employed current occupation: [employer] pets and animals: Yes (Avoid litterbox) pets and animals: cat(s) history of recent travel: Yes ([place]) out of state: Yes out of country: No sexually active: Yes Smoking Status: Former smoker quit date: 10/20/20 Smokeless tobacco user: other alcohol intake: current alcohol intake frequency: holidays/special occasions only details: not while substance use type: does not use well-balanced diet: rarely or never caffeine: No eating out: 1-3 times/week during the past year weight has: remained stable what type of physical activity do you participate in: walking frequency: 1-2 times per week duration: 45-60 minutes/day darien/yazidism: Shinto seatbelt use: always do you feel safe at home: Yes additional social history: [employer] History 2 Elective abortions Hx Para 0 Spontaneous abortions 1 Hx # Term Pregnancies Ectopic pregnancies Hx # Pregnancies Multiple births # of living children 0 Past Pregnancies Del. Date Name GA/Weeks Outcome Route Bth Weight Gen Labor Lgth Anesthesia Del Locatn Provider FOB Unknown 03/02/23 chemical 4 spontaneous HPI 13wk OB Details: JOEL HINTON is a 28 year old who presents for routine OB visit. OB Visit LING Calculator Estimated Delivery Date Method Current WG Current Estimate 04/11/24 LMP (Certain) 14w 0d Expected Delivery Route/Plan Labor Preferences- CB/BF classes: [] labor support person: [] labor intervention preferences: [] pain management options preferred: [] cut cord/dad catch: [] : [] PP control planned: [] discussed possible routes of delivery and associated risks: [] special requests: [] Specific Issue/Plans Covid status: [] Flu vaccine: [] Tdap vaccine: [] Rhogam: [] LARC form signed: [] Problem list reviewed and updated with the most current plan of care details and appropriate orders placed. Relevant counseling for the gestational age provided. Continue routine care and follow up unless otherwise noted in visit notes/problem list details Initial Weight: Not Recorded Date -???-???-???-???-??? -???-???-???-???-??? -???-???- EGA Weight BP Urine Prot -???-???-???-???-??? -???-???-???-???-??? -???-???- Glucose FHR FuHt Pres Dilation -???-???-???-???-??? -???-???-???-???-??? -???-???- Effaced St Visit Note 09/11/23 -???-???-???-???-??? -???-???-???-???-??? -???-???- 9w 4d 318 lb 318 lb 112/73 -???-???-???-???-??? -???-???-???-???-??? -???-???- 174 -???-???-???-???-??? -???-???-???-???-??? -???-???- KW- CRL cons with dates. To get NIPT and carrier order at next visit. 10/12/23 -???-???-???-???-??? -???-???-???-???-??? -???-???- 14w 0d 316 lb 6 oz 122/76 Negative -???-???-???-???-??? -???-???-???-???-??? -???-???- Negative 153 -???-???-???-???-??? -???-???-???-???-??? -???-???- JV- no compl aints today. needs work restriction letter. Needs box kit for NIPT and carrier testing. ACOG First Trimester First T (more content not included)... Normal [facility] Vital Signs Date Time Vital Sign Value Performing Clinician Faci lity 06-06-2024 10:47-0400 Body height 172.72 cm No Primary Care Physician [facility] 06-06-2024 10:46-0400 Body mass index (BMI) [Ratio] 47.5 kg/m2 No Primary Care Physician [facility] 06-06-2024 10:46-0400 Body weight 141.63 kg No Primary Care Physician [facility] 06-06-2024 10:46-0400 Diastolic blood pressure 86 mm[Hg] No Primary Care Physician [facility] 06-06-2024 10:46-0400 Systolic blood pressure 118 mm[Hg] No Primary Care Physician [facility] 05-21-2024 14:05-0500 Body mass index (BMI) [Ratio] 47.3 kg/m2 No Primary Care Physician [facility] 05-21-2024 14:05-0500 Body temperature 96.1 [degF] No Primary Care Physician [facility] 05-21-2024 14:05-0500 Body weight 141.18 kg No Primary Care Physician [facility] 05-21-2024 14:05-0500 Diastolic blood pressure 72 mm[Hg] No Primary Care Physician [facility] 05-21-2024 14:05-0500 Heart rate 100 /min No Primary Care Physician [facility] 05-21-2024 14:05-0500 Respiratory rate 18 /min No Primary Care Physician [facility] 05-21-2024 14:05-0500 SaO2% (BldA) [Mass fraction] 98 % No Primary Care Physician [facility] 05-21-2024 14:05-0500 Systolic blood pressure 122 mm[Hg] No Primary Care Physician [facility] 05-02-2024 13:35-0500 Body mass index (BMI) [Ratio] 47.3 kg/m2 No Primary Care Physician [facility] 05-02-2024 13:35-0500 Body weight 141.23 kg No Primary Care Physician [facility] 05-02-2024 13:35-0500 Diastolic blood pressure 82 mm[Hg] No Primary Care Physician [facility] 05-02-2024 13:35-0500 Systolic blood pressure 122 mm[Hg] No Primary Care Physician [facility] 04-21-2024 13:29-0500 Diastolic blood pressure 84 mm[Hg] No Primary Care Physician [facility] 04-21-2024 13:29-0500 Heart rate 100 /min No Primary Care Physician [facility] 04-21-2024 13:29-0500 Respiratory rate 16 /min No Primary Care Physician [facility] 04-21-2024 13:29-0500 Systolic blood pressure 142 mm[Hg] No Primary Care Physician [facility] 04-21-2024 08:35-0500 SaO2% (BldA) [Mass fraction] 98 % No Primary Care Physician [facility] 04-21-2024 02:09-0500 Body temperature 97.8 [degF] No Primary Care Physician [facility] 04-18-2024 19:37-0500 Body mass index (BMI) [Ratio] 52.4 kg/m2 No Primary Care Physician [facility] 04-18-2024 19:37-0500 Body weight 156.26 kg No Primary Care Physician [facility] 04-15-2024 13:44-0500 Body mass index (BMI) [Ratio] 51.9 kg/m2 No Primary Care Physician [facility] 04-15-2024 13:44-0500 Body weight 154.84 kg No Primary Care Physician [facility] 04-15-2024 13:44-0500 Diastolic blood pressure 88 mm[Hg] No Primary Care Physician [facility] 04-15-2024 13:44-0500 Systolic blood pressure 134 mm[Hg] No Primary Care Physician [facility] 04-08-2024 14:31-0500 Body mass index (BMI) [Ratio] 50.9 kg/m2 No Primary Care Physician [facility] 04-08-2024 14:31-0500 Body weight 151.95 kg No Primary Care Physician [facility] 04-08-2024 14:31-0500 Diastolic blood pressure 89 mm[Hg] No Primary Care Physician [facility] 04-08-2024 14:31-0500 Systolic blood pressure 118 mm[Hg] No Primary Care Physician [facility] 04-02-2024 18:07-0500 Diastolic blood pressure 80 mm[Hg] No Primary Care Physician [facility] 04-02-2024 18:07-0500 Heart rate 75 /min No Primary Care Physician [facility] 04-02-2024 18:07-0500 Systolic blood pressure 124 mm[Hg] No Primary Care Physician [facility] 04-01-2024 14:31-0500 Body mass index (BMI) [Ratio] 50.6 kg/m2 No Primary Care Physician [facility] 04-01-2024 14:31-0500 Body weight 151.21 kg No Primary Care Physician [facility] 04-01-2024 14:31-0500 Diastolic blood pressure 84 mm[Hg] No Primary Care Physician [facility] 04-01-2024 14:31-0500 Systolic blood pressure 134 mm[Hg] No Primary Care Physician [facility] 03-25-2024 09:21-0500 Body mass index (BMI) [Ratio] 49.3 kg/m2 No Primary Care Physician [facility] 03-25-2024 09:21-0500 Body weight 147.07 kg No Primary Care Physician [facility] 03-25-2024 09:21-0500 Diastolic blood pressure 72 mm[Hg] No Primary Care Physician [facility] 03-25-2024 09:21-0500 Systolic blood pressure 115 mm[Hg] No Primary Care Physician [facility] 03-18-2024 10:01-0500 Body mass index (BMI) [Ratio] 49.7 kg/m2 No Primary Care Physician [facility] 03-18-2024 10:01-0500 Body weight 148.49 kg No Primary Care Physician [facility] [facility] 03-18-2024 10:01-0500 Diastolic blood pressure 87 mm[Hg] No Primary Care Physician [facility] 03-18-2024 10:01-0500 Systolic blood pressure 121 mm[Hg] No Primary Care Physician [facility] 03-14-2024 15:47-0500 Body mass index (BMI) [Ratio] 50.3 kg/m2 No Primary Care Physician [facility] 03-14-2024 15:47-0500 Body weight 150.3 kg No Primary Care Physician [facility] 03-14-2024 15:47-0500 Diastolic blood pressure 86 mm[Hg] No Primary Care Physician [facility] 03-14-2024 15:47-0500 Systolic blood pressure 120 mm[Hg] No Primary Care Physician [facility] 02-29-2024 15:03-0500 Diastolic blood pressure 85 mm[Hg] No Primary Care Physician [facility] 02-29-2024 15:030500 Systolic blood pressure 126 mm[Hg] No Primary Care Physician [facility] 02-29-2024 15:0500 Body mass index (BMI) [Ratio] 48.6 kg/m2 No Primary Care Physician [facility] 02-29-2024 15:0500 Body weight 145.2 kg No Primary Care Physician [facility] Encounters Encounter Date Encounter Type Care Provider Facility Start: 09-16-2024 End: 09-16-2024 ambulatory No Primary Care Physician [facility] Work Phone: Start: 09-16-2024 End: 09-16-[address] Freida Becker MD -[facility] Work Phone: Start: 06-06-2024 End: 06-06-2024 ambulatory No Primary Care Physician [facility] Work Phone: Start: 06-06-2024 End: 06-06-2024 Patient encounter procedure Agueda Leung CNM -Laboratory, Specimen Work Phone: Start: 06-06-2024 End: 06-06-2024 Patient encounter procedure Agueda Leung CNM -[facility] Work Phone: Start: 06-06-2024 End: 06-06-2024 [facility] Start: 06-06-2024 End: 06-06-2024 ambulatory [facility] Facility:[facility] Start: 05-21-2024 End: 05-21-[address] Emilia Cason MD -[facility] Work Phone: Start: 05-21-2024 End: 05-21-2024 [facility] Start: 05-02-2024 End: 05-02-2024 Patient encounter procedure Ana Caldera CNM -[facility] Work Phone: Start: 05-02-2024 End: 05-02-2024 [facility]ulatory [facility] Start: 04-22-2024 Non-patient / Non-visit Dr. Freida Becker MD -[facility] Start: 04-21-2024 Non-patient / Non-visit Dr. Freida Becker MD -[facility] Start: 04-20-2024 Non-patient / Non-visit Agueda Leung [facility] Start: 04-19-2024 ambulatory [facility] Facili ty:[facility] Start: 04-19-2024 Non-patient / Non-visit Dr. Bola Daigle MD -[facility] Start: 04-18-2024 Non-patient / Non-visit Agueda Leung [facility] Start: 04-18-2024 ambulatory Verónica H[facility]ty:[facility] Start: 04-18-2024 End: 04-21-2024 Evaluation and management of inpatient [facility] Work [facility]: Start: 04-15-2024 End: 04-15-[address] Verónica Mars DO -[facility] Work Phone: Start: 04-15-2024 End: 04-15-2024 ambulatory [facility] Facility:[facility] Start: 04-11-2024 End: 04-11-2024 Patient encounter procedure Patsy Pederson NP-R[facility] Work Phone: Start: 04-11-2024 End: 04-11-2024 ambulatory [facility] Facility:[facility] Start: 04-08-2024 End: 04-08-[address] Freida Becker MD -[facility] Work Phone: Start: 04-08-2024 End: 04-08-2024 ambulatory [facility] Facility:[facility] Start: 04-06-2024 ambulatory Freida Valles lity:[facility] Start: 04-06-2024 Non-patient / Non-visit Dr. Freida Becker MD -[facility] Start: 04-04-2024 End: 04-04-2024 Patient encounter procedure Patsy Bg [employer]-C -[facility] Work Phone: Start: 04-04-2024 End: 04-04-2024 ambulatory [facility] Facility:[facility] Start: 04-02-2024 End: 04-02-2024 ambulatory [facility] Facility:[facility] Start: 04-02-2024 End: 04-02-[address] Freida Becker MD -[facility] Work Phone: Start: 04-01-2024 End: 04-01-2024 Patient encounter procedure Pasty [place] [employer]-C -[facility] Work Phone: Start: 04-01-2024 End: 04-01-2024 ambulatory [facility] Facility:[facility] Start: 03-28-2024 End: 03-28-2024 Patient encounter procedure Patsy Bg [employer] AGENT-C -[facility] Work Phone: Start: 03-28-2024 End: 03-28-2024 ambulatory [facility] Facility:[facility] Start: 03-25-2024 End: 03-25-2024 Patient encounter procedure LYNNETTE Strange -[facility] Work Phone: Start: 03-25-2024 End: 03-25-2024 ambulatory [facility] Facility:[facility] Start: 03-25-2024 End: 03-25-2024 Patient encounter procedure Ana Caldera CNM -[facility] Work Phone: Start: 03-25-2024 End: 03-25-2024 ambulatory [facility] Facility:[facility] Start: 03-21-2024 End: 03-21-2024 Patient encounter procedure Patsy [place] [employer]-C -Ultrasound, [facility] Work Phone: Start: 03-21-2024 End: 03-21-2024 ambulatory [facility] Facility:[facility] Start: 03-18-2024 End: 03-18-[address] Freida Becker MD -[facility] Work Phone: Start: 03-18-2024 End: 03-18-2024 ambulatory No Primary Care Physician Facility:[facility] Start: 03-14-2024 End: 03-14-[address] Verónica Mars DO -Ultrasound, [facility] Work Phone: Start: 03-14-2024 End: 03-14-[address] Freida Becker MD -[facility] Work Phone: Start: 03-14-2024 End: 03-14-2024 ambulatory No Primary Care Physician Facility:[facility] Start: 03-14-2024 End: 03-14-2024 ambulatory Patsy Pederson NP Facility:[facility] Start: 02-29-2024 End: 02-29-2024 Patient encounter procedure Agueda Leung CNM -[facility] Work Phone: Start: 02-29-2024 End: 02-29-2024 ambulatory Agueda Leung Facility:[facility] Start: 02-15-2024 End: 02-15-2024 ambulatory Verónica Mars Facility:[facility] Start: 02-12-2024 End: 02-12-2024 ambulatory Patsy Pederson [employer] Facility:[facility] Start: 01-29-2024 End: 01-29-2024 ambulatory Ana Caldera Facility:[facility] Start: 01-18-2024 End: 01-18-2024 ambulatory Verónica Mars Facility:[facility] Start: 01-18-2024 End: 01-18-2024 ambulatory Verónica Mars Facility:[facility] Start: 01-08-2024 End: 01-08-2024 ambulatory [facility] Start: 01-04-2024 End: 01-04-2024 ambulatory Verónica Mars Facility:[facility] Start: 12-11-2023 End: 12-11-2023 ambulatory [facility]NICA [facility] Start: 12-04-2023 End: 12-04-2023 ambulatory No Primary Care Physician Facility:[facility] Start: 11-28-2023 End: 11-29-2023 Emergency department patient visit Jack Zelaya Facility:[facility] Start: 11-20-2023 End: 11-20-2023 [facility] Start: 11-09-2023 End: 11-09-2023 ambulatory Ana Caldera Facility:[facility] Start: 10-15-2023 End: 10-15-2023 ambulatory Verónica Mars Facility:[facility] Start: 10-12-2023 End: 10-12-2023 ambulatory Verónica Mars Facility:[facility] Procedures Date Procedure Procedure Detail Performing Clinician Start: 06-06-2024 Liquid based cervica l cytology screening No Primary Care Physician Comment on above: NEGATIVE FOR INTRAEP ITHELIAL LESION OR MALIGNANCY. This liquid based Th inPrep(R) pap test was screened withthe use of an image guided system. Start: 04-11-2024 Ultrasonography for biophysical profile without non-stress testing No Primary Care Physician Start: 04-04-2024 Ultrasonography for biophysical profile without non-stress testing No Primary Care Physician Start: 03-28-2024 Ultrasonography for biophysical profile without non-stress testing No Primary Care Physician Start: 03-21-2024 Ultrasonography for biophysical profile without non-stress testing No Primary Care Physician Start: 03-14-2024 Ultrasonography for biophysical profile without non-stress testing No Primary Care Physician Start: 03-14-2024 Beta-hemolytic Streptococcus culture No Primary Care Physician H/O: section Status pos t section No Primary Care Physician Comment on above: JV- 04/19/24 H/O: section Status pos t section Dr. Verónica Mars DO H/O: section Status pos t section Ana Caldera CNM Plan of Treatment Date Care Activity Detail Author Start: 04-21-2024 Patient discharge [place] Start: 04-20-2024 Application of abdominal corset [facility] Start: 04-19-2024 End: 04-20-2024 [facility] Start: 04-19-2024 Administration of medication [facility] Start: 04-19-2024 Ambulation therapy management [facility] Start: 04-19-2024 Application of device [facility] Start: 04-19-2024 Application of inter mittent pneumatic compression device [facility] Start: 04-19-2024 Assessment of risk o f venous thromboembolism [facility] Start: 04-19-2024 Catheterization of vein [facility] Start: 04-19-2024 Deep breathing and c oughing exercises [facility] Start: 04-19-2024 Exercises [facility] Start: 04-19-2024 Measuring intake and output [facility] Start: 04-19-2024 Notification of physician [facility] Start: 04-19-2024 Procedure discontinued [facility] Start: 04-19-2024 Provision of activity privileges [facility] Start: 04-19-2024 Skin care [facility] Start: 04-19-2024 Vital signs measurements [facility] Start: 04-19-2024 Wound care [facility] Start: 04-19-2024 Application of abdominal corset [facility] Start: 04-19-2024 Consultation [facility] Start: 04-18-2024 Admission procedure [facility] Start: 04-02-2024 Nonstress test [facility] Start: 04-02-2024 Obstetric monitoring [facility] Start: 04-02-2024 Vital signs measurements [facility] Start: 04-02-2024 [facility] Start: 04-02-2024 Patient discharge [place] Patient Education [facility] Work Phone: Patient referral [facility] Work Phone: Immunizations Immunization Date Immunization Notes Care Provider Fa cility 01-18-2024 influenza, injectabl e, madin oscar canine kidney, preservative free No Primary Care Physician [facility] 01-18-2024 Influenza, injectabl e, Madin [place] Canine Kidney, preservative free, quadrivalent No Primary Care Physician [facility] 01-18-2024 tetanus toxoid, redu tray diphtheria toxoid, and acellular pertussis vaccine, adsorbed No Primary Care Physician [facility] 11-10-2022 hepatitis A vaccine, adult dosage No Primary Care Physician [facility] 03-01-2022 hepatitis A vaccine, adult dosage No Primary Care Physician [facility] 10-29-2013 hepatitis A vaccine, adult dosage No Primary Care Physician [facility] 10-29-2013 tetanus toxoid, redu tray diphtheria toxoid, and acellular pertussis vaccine, adsorbed No Primary Care Physician [facility] 01-12-2013 influenza, seasonal, injectable, preservative free No Primary Care Physician [facility] 01-27-2009 novel Influenza-H1N1 -09, live virus for nasal administration No Primary Care Physician [facility] Payers Date Payer Category Payer Self-pay 2023 Unknown [id number] 1995 Unknown [id number] 2.840.1.193040.3.579.2.4 79 1993 Unknown [id number] 2.840.1.893534.3.579.2.4 79 1993 Unknown [id number] 2..840.1.945656.3.579.2.4 79 Private Health Insurance [facility] [place] [id number] Unknown [id number] 2.16.840.1.739831.3.579.2.4 62 Unknown [id number] 2.840.1.295348.3.579.2.4 62 Unknown [id number] 2.16.840.1.556665.3.579.2.4 62 Unknown [id number] 2.16.840.1.325483.3.579.2.4 62 Unknown [id number] 2.16.840.1.645681.3.579.2.4 62 Unknown [id number] 2.16.840.1.065665.3.579.2.4 62 Unknown [id number] 2.16.840.1.982186.3.579.2.4 62 Unknown [id number] 2.16.840.1.324694.3.579.2.4 62 Unknown [id number] 2.16.840.1.092314.3.579.2.4 62 Unknown [id number] 2.16.840.1.758914.3.579.2.4 62 Unknown [id number] 2.16.840.1.416462.3.579.2.4 62 Unknown [id number] 2.16.840.1.224253.3.579.2.4 62 Unknown [id number] 2.16.840.1.920458.3.579.2.4 62 Unknown [id number] 2.16.840.1.884180.3.579.2.4 62 Unknown [id number] 2.16.840.1.211904.3.579.2.4 62 Unknown [id number] 2.16.840.1.694857.3.579.2.4 62 Unknown [id number] 2.16.840.1.806028.3.579.2.4 62 Unknown [id number] 2.16.840.1.030309.3.579.2.4 62 Unknown [id number] 2.16.840.1.164069.3.579.2.4 62 Unknown [id number] 2.16.840.1.770543.3.579.2.4 62 Unknown [id number] 2.16.840.1.983295.3.579.2.4 62 Unknown [id number] 2.16.840.1.908726.3.579.2.4 62 Unknown [id number] 2.16.840.1.532873.3.579.2.4 62 Unknown [id number] 2.16.840.1.746285.3.579.2.4 62 Unknown [id number] 2.16.840.1.146394.3.579.2.4 62 Unknown [id number] 2.16.840.1.533581.3.579.2.4 62 Unknown [id number] 2.16.840.1.035023.3.579.2.4 62 Unknown [id number] 2.16.840.1.205312.3.579.2.4 62 Unknown [id number] 2.16.840.1.583363.3.579.2.4 62 Unknown [id number] 2.16.840.1.257055.3.579.2.4 62 Unknown [id number] 2.16.840.1.878419.3.579.2.4 62 Unknown [id number] 2.16.840.1.980850.3.579.2.4 62 Unknown [id number] 2.16.840.1.872946.3.579.2.4 62 Unknown [id number] 2.16.840.1.915665.3.579.2.4 62 Unknown [id number] 2.16.840.1.629194.3.579.2.4 62 Unknown [id number] 2.16.840.1.965410.3.579.2.4 62 Unknown [id number] 2.16.840.1.656520.3.579.2.4 62 Unknown [id number] 2.16.840.1.137642.3.579.2.4 62 Social History Date Type Detail Facility Patient currentl y [facility] Start: 05-21-2024 [facility] Start: 06-17-2024 Sex Female (finding) [facility] Start: 1995 Sex Assigned At Female [facility] Goals Date Patient Goal Desired Activity /State Clinical Note 06-06-2024 Note Date & Type Note Facility 06-06-2024 Note [facility] Pap Smear Specimen Adequacy June 06, 2024 3:19pm Comment . Satisfactory for evaluation. No endocervical component is identified. Comment on above: Satisfactory for shorty luation. No endocervical component is identified. Evaluation note 05-21-2024 Note Date & Type Note Facility 05-21-2024 Evaluation note Diagnosis Onset Date Resolution Morbid obesity with BMI of 45.0-49.9, adult acute April 1:53pm COVID-19 vaccination declined noneactive May 21 1:53pm Moderate major depression noneactive May 21 1:53pm Mild anxiety noneactive April 1:53pm Single live noneactive 2024 1:53pm Establishing care with new doctor, encounter for noneactive May 21 1:53pm Health counseling noneactive 2024 1:53pm anxiety acute June 06, 2024 10:25am care and examination acute June 06, 2024 10:25am Routine Follow-Up noneactive June 06, 2024 10:25am [facility] Work Phone: Discharge summary note 04-22-2024 Note Date & Type Note Facility 04-22-2024 Note [facility] Medical Records Department [address] [place] [id number] Discharge Summary 04/22/24 1840 MR#: [id number] Acct: [id number] Name: JOEL HINTON Rep #: [id number] : 1995 28 From: Freida Becker MD PCP: Dr. Joel Damon MD Status:DIS IN [id number] Providers Date of Admission: 04/18/24 Primary Care Physician: Dr. Joel Damon MD Reason For Visit: C SECTION Diagnosis Discharge Diagnosis (1) Status post section: Status: Acute Code(s): Z98.891 - History of uterine scar from previous surgery Plan s/p LTCS PPD # 2 1. routine post care 2. breast feeding- support given 3. rh positive 4. rubella immune Medications at Discharge Home Medications PNV 178-FA 180 mcg-om3 35 mg-dha 25 mg-epa 5 mg-fish oil chew tablet 1 tab PO DAILY 09/07/23 pyridoxine (vitamin B6) 25 mg tablet 25 mg PO DAILY 09/07/23 acetaminophen 325 mg tablet (Tylenol) 325 mg PO Q6H PRN 12/04/23 ibuprofen 800 mg tablet 800 mg PO Q8H PRN pain #30 tabs 04/19/24 oxycodone-acetaminophen 5 mg-325 mg tablet (Percocet) 1 tab PO Q4H PRN pain 7 days #20 tabs 04/19/24 Hospital Course Summary of Care Provided Hospital Course: presented for IOL secondary to elevated bps. she developed NRFHTs and underwent and emergent csection, she had a routine recovery and was stable for dc to home. Weight / BMI Weight Weight: 344 lb 8 oz Body Mass Index (BMI) 52.4 ABG / Lab / Microbiology Data 04/20/24 06:30 04/18/24 21:00 D/C Instructions Discharge Diet: No restrictions Discharge Activity: May Not Drive (for 2 weeks or while taking narcotic pain medications.), May Shower and May Take a Tub Bath (in 7 days) May shower in (days): 0 May resume sexual activity in: 4-6 weeks Weight Bearing Status: Full weight bearing Call your doctor if your incision/area has: Continuous Slow Oozing, Sudden Increased Bleeding, Increased Pain/ Swelling, Increased Redness and Foul Smelling Discharge Call your doctor if you observe: Fever of 101 or Higher and Using more than 1 pad per hour Suture Line Care: Avoid Pulling/Pushing and Avoid Pinching/Bending Cleanse incision/area with: Soap Water and Keep Dressing Clean Dry DC O2, CPAP, BIPAP Needs Home O2 Discharge instructions: No Please Follow Up With: Verónica Mars DO When: Call [phone] to make an appointment for an incision check in 1-2 weeks. Meaningful Use Info Meaningful Use Meaningful Use Diagnoses (Choose all that apply): None applicable Ischemic Stroke Statin Dosing Therapy Reference: STATIN DOSE THERAPY REFERENCE: * Patients > 75 years receive moderate or high dose statin therapy. * Patients 75 years or YOUNGER should receive HIGH intensity statin dose unless contraindicated. You will be required to document reason for non-treatment if statin daily dose does not meet guidelines. HIGH DOSE STATIN THERAPY DAILY Atorvastatin > than or = to 40 mg Rosuvastatin > than or = to 20 mg Amlodipine + Atorvastatin > than or = to 2.5/40 mg Ezetimibe + Simvastatin 10/80 mg Simvastatin 80mg Discharge Plan Admission Admit Date/Time: 04/18/24 19:10 Primary Reason for Your Visit: section Attending Provider: Verónica Mars Primary Care Provider: Joel Damon Instructions Patient Instructions: After a Discharge Orders/Prescriptions Prescriptions: New ibuprofen 800 mg tablet 800 mg PO Q8H PRN (Reason: pain) Qty: 30 0RF oxycodone-acetaminophen [Percocet] 5-325 mg tablet 1 tab PO Q4H PRN (Reason: pain) 7 Days Qty: 20 0RF Rx Instructions: 1-2 tabs q 4 hrs as needed for pain Continued PNV [id number] 180 mcg-35 mg- 25 mg-5 mg tablet,chewable 1 tab PO DAILY pyridoxine (vitamin B6) 25 mg tablet 25 mg PO DAILY acetaminophen [Tylenol] 325 mg tablet 325 mg PO Q6H PRN Referrals / Follow Up: Joel Damon MD [Primary Care Provider] - Disposition Disposition (needs filled in before D/C Order can be placed): Home, Self Care 04/22/241843 Cosigner Signature (if applicable): CC: Dr. Joel Damon MD; Dr. Freida Becker MD Signed [facility] Evaluation note 02-29-2024 Note Date & Type Note Facility 02-29-2024 Evaluation note Diagnosis Onset Date Resolution Morbid obesity with BMI of 45.0-49.9, adult acute February 2:58pm Former cigar smoker resolved 2023 2:58pm resolved February 29, 2024 2:58pm History of miscarriage, currently inactive February 29, 2024 2:58pm Supervision of high-risk inactive February 28 2:58pm Morbid obesity with BMI of 45.0-49.9, adult acute February 3:32pm Former cigar smoker resolved 2023 3:32pm resolved March 14, 2024 3:32pm History of miscarriage, currently inactive February 3:32pm Supervision of high-risk inactive March 14 3:32pm Morbid obesity with BMI of 45.0-49.9, adult acute February 9:55am resolved March 18, 2024 9:55am History of miscarriage, currently inactive February 9:55am Supervision of high-risk inactive March 18, 024 9:55am Morbid obesity with BMI of 45.0-49.9, adult acute February 9:18am resolved March 25, 2024 9:18am History of miscarriage, currently inactive February 9:18am Supervision of high-risk inactive March 25, 024 9:18am Care and examination of lactating mother noneactive March 25, 2024 11:23am Morbid obesity with BMI of 45.0-49.9, adult acute April 01, 2024 2:46pm resolved April 01 2:46pm History of miscarriage, currently inactive April 01, 2024 2:46pm Supervision of high-risk inactive April 01 2:46pm False labor resolved April 02, 2024 5:35pm Morbid obesity with BMI of 45.0-49.9, adult acute March 2:28pm False labor resolved April 08, 2024 2:28pm resolved April 08, 2024 2:28pm History of miscarriage, currently inactive April 08, 2024 2:28pm Supervision of high-risk inactive April 08 2:28pm Morbid obesity with BMI of 45.0-49.9, adult acute March 1:42pm False labor resolved April 15, 2024 1:42pm resolved April 15, 2024 1:42pm History of miscarriage, currently inactive April 15, 2024 1:42pm Supervision of high-risk inactive April 15 1:42pm Morbid obesity with BMI of 45.0-49.9, adult acute March 7:10pm Elevated blood pressure reading resolved April 18 7:10pm Encounter for induction of labor resolved April 18 7:10pm resolved April 18, 2024 7:10pm intolerance to labor, delivered, current hospitalization inactive April 18 7:10pm History of miscarriage, currently inactive April 18, 2024 7:10pm Status post section inactive April 18 7:10pm Supervision of high-risk inactive April 18 7:10pm Status post section inactive May 02 1:31pm Morbid obesity with BMI of 45.0-49.9, adult acute April 1:53pm COVID-19 vaccination declined noneactive May 21, 1:53pm Moderate major depression noneactive May 21, 2024 1:53pm Mild anxiety noneactive April 1:53pm Single live noneactive uar 2024 1:53pm Establishing care with new doctor, encounter for noneactive Februa ry 2024 1:53pm Health counseling noneactive uar 2024 1:53pm anxiety acute June 06, 2024 10:25am care and examination acute June 06, 2024 10:25am Routine Follow-Up noneactive June 06, 2024 10:25am [facility] Work Phone: Reason for referral (narrative) Note Date & Type Note Facility Reason for referral (narrative) No reason for referral information available [facility] Work Phone: Summary Purpose Family History No Family History Records Found Relationship Condition Age at Onset Recorded Date/T emily grandfather Cardiac disease Unknown Depression Unknown Malignant neoplasm of lung Unknown Diabetes mellitus Unknown father Diabetes mellitus Unknown Cardiac disease Unknown grandmother Malignant neoplasm of breast Unknown Advance Directives No Advanced Directives Records Found Advance Directive Response Recorded Date/ Time Living Will No November 27 10:30pm Do you have a Healthcare Power of Robotics Engineer? No November 28, 2023 10:30pm Living Will No April 18 9:17pm Do you have a Healthcare Power of Robotics Engineer? No April 18, 2024 9:17pm Chief Complaint and Reason for Visit Chief Complaint Admit Date 34 WK OB February 29, 2024 2 :58pm 36 WK OB March 14, 2024 3:32pm GROWTH 32 WEEKS; WELLBEING D ec2023 4:32pm 37 WK OB March 18, 2024 9:55am WELLBEING March 21, 2024 4:33pm 38 WK OB March 25, 2024 9:18am assessment March 25, 2024 11:23am WELLBEING March 28, 2024 3: 27pm 39 WK OB April 01, 2024 2: 46pm R/O LABOR April 02, 2024 5: 35pm WELLBEING April 04, 2024 3 :16pm R/O LABOR April 06, 2024 1 2:54pm 40 WK OB April 08, 2024 2 :28pm WELLBEING April 11, 2024 3 :28pm 41 WK OB April 15, 2024 1 :42pm C SECTION April 18, 2024 7 :10pm INDUCTION April 18, 2024 8 :43pm C SECTION April 19, 2024 6 :07am C SECTION April 19, 2024 7 :00am C SECTION April 20, 2024 1 0:06am C SECTION April 21, 2024 7 :18am C SECTION April 22, 2024 6 :40pm 2 wk incision check May 02, 2024 1 :31pm Est Care, Sees other BMS May 21, 2024 1:53pm visit (obstetrics) May 10:25am Reason for Visit Admit Date Morbid obesity with BMI of 45.0-49.9, ad ult February 29, 2024 2:58pm Former cigar smoker February 29, 2024 2 :58pm February 29, 2024 2 :58pm History of miscarriage, currently pregna nt February 29, 2024 2:58pm Supervision of high-risk Dece 2023 2:58pm Morbid obesity with BMI of 45.0-49.9, ad ult March 14, 2024 3:32pm Former cigar smoker March 14, 2024 3:32pm March 14, 2024 3:32pm History of miscarriage, currently pregna nt March 14, 2024 3:32pm Supervision of high-risk Dece 2023 3:32pm Morbid obesity with BMI of 45.0-49.9, ad ult March 18, 2024 9:55am March 18, 2024 9:55am History of miscarriage, currently pregna nt March 18, 2024 9:55am Supervision of high-risk Dece nik 2023 9:55am Morbid obesity with BMI of 45.0-49.9, ad ult March 25, 2024 9:18am March 25, 2024 9:18am History of miscarriage, currently pregna nt March 25, 2024 9:18am Supervision of high-risk Decem 2023 9:18am Care and examination of lactating mother March 25, 2024 11:23am Morbid obesity with BMI of 45.0-49.9, ad ult April 01, 2024 2:46pm April 01, 2024 2: 46pm History of miscarriage, currently pregna nt April 01, 2024 2:46pm Supervision of high-risk Taj 2024 2:46pm False labor April 02, 2024 5: 35pm Morbid obesity with BMI of 45.0-49.9, ad ult April 08, 2024 2:28pm False labor April 08, 2024 2 :28pm April 08, 2024 2 :28pm History of miscarriage, currently pregna nt April 08, 2024 2:28pm Supervision of high-risk Taj 2024 2:28pm Morbid obesity with BMI of 45.0-49.9, ad ult April 15, 2024 1:42pm False labor April 15, 2024 1 :42pm April 15, 2024 1 :42pm History of miscarriage, currently pregna nt April 15, 2024 1:42pm Supervision of high-risk Taj 2024 1:42pm Morbid obesity with BMI of 45.0-49.9, ad ult April 18, 2024 7:10pm Elevated blood pressure reading April 18, 2024 7:10pm Encounter for induction of labor April 18, 2024 7:10pm April 18, 2024 7 :10pm intolerance to labor, delivered, current hospitalization April 18, 2024 7:10pm History of miscarriage, currently pregna nt April 18, 2024 7:10pm Status post section March 7:10pm Supervision of high-risk Taj 2024 7:10pm Status post section April 1:31pm Morbid obesity with BMI of 45.0-49.9, ad ult May 21, 2024 1:53pm COVID-19 vaccination declined April [id number] 1:53pm Moderate major depression May 21, 2024 1:53pm Mild anxiety May 21, 2024 1:53pm Single live May 21, 2024 1:53pm Establishing care with new doctorchai for May 21, 2024 1:53pm Health counseling May 21, 2024 1:53pm anxiety June 06, 2024 10: 25am care and examination June [id number] 10:25am Routine Follow-Up June 06, 2024 10:25am Chief Complaint Admit Date Est Care, Sees other BMS May 21, 2024 1:53pm visit (obstetrics) May 10:25am CONSULT September 16, 2024 10:4 5am Reason for Visit Admit Date Morbid obesity with BMI of 45.0-49.9, ad ult May 21, 2024 1:53pm COVID-19 vaccination declined April 272024 1:53pm Moderate major depression May 21, 2024 1:53pm Mild anxiety May 21, 2024 1:53pm Single live May 21, 2024 1:53pm Establishing care with new doctorchai for May 21, 2024 1:53pm Health counseling May 21, 2024 1:53pm anxiety June 06, 2024 10: 25am care and examination June [id number] 10:25am Routine Follow-Up June 06, 2024 10:25am Additional Source Comments INFORMATION SOURCE (unrecogn ized section and content) DATE CREATED AUTHOR 01/10/2024 [facility] DATE CREATED AUTHOR 'S KARU ATEUNICE 09/21/2024 [facility] Care Teams (unrecognized sec tion and content) Team Status: Active Member Role Status Dates Dr. Joel Damon MD Primary Care Provider Active Team Status: Inactive Member Role Status Dates No Primary Care Physician Primary Care Provider Active Start: February 29, 2024 End: February 29, 2024 No Primary Care Physician Referring Provider Active Start: February 29, 2024 End: February 29, 2024 Agueda Leung CNM Attending Provider Active Start: February 29, 2024 End: February 29, 2024 Team Status: Inactive Member Role Status Dates No Primary Care Physician Primary Care Provider Active Start: March 14, 2024 End: March 14, 2024 No Primary Care Physician Referring Provider Active Start: March 14, 2024 End: March 14, 2024 Dr. Freida Becker MD Attending Provider Active Start: March 14, 2024 End: March 14, 2024 Team Status: Inactive Member Role Status Dates No Primary Care Physician Primary Care Provider Active Start: March 14, 2024 End: March 14, 2024 Patsy Pederson [employer] PL[employer] SALES AGENT, [employer] PLAN SALES AGENT-C Other Provider Active St art: March 14, 2024 End: March 14, 2024 Dr. Verónica Mars , Attending Provider Activ e Start: March 14, 2024 End: March 14, 2024 Dr. Verónica Mars , DO Referring Provider Activ e Start: March 14, 2024 End: March 14, 2024 Team Status: Inactive Member Role Status Dates No Primary Care Physician Primary Care Provider Active Start: March 18, 2024 End: March 18, 2024 No Primary Care Physician Referring Provider Active Start: March 18, 2024 End: March 18, 2024 Dr. Freida Becker MD Attending Provider Active Start: March 18, 2024 End: March 18, 2024 Team Status: Inactive Member Role Status Dates Patsy Pederson PART[employer] PL[employer] SALES AGENT, PART[employer] PLAN SALES AGENT-C Attending Provider Active Start: March 21, 2024 End: March 21, 2024 Patsy Pederson PART[employer] PLAN SALES AGENT, PARTY PLAN SALES AGENT-C Referring Provider Active Start: March 21, 2024 End: March 21, 2024 Dr. Joel Damon MD Primary Care Provider Active Start: March 21, 2024 End: March 21, 2024 Team Status: Inactive Member Role Status Dates No Primary Care Physician Referring Provider Active Start: March 25, 2024 End: March 25, 2024 Ana Caldera CNM Attending Provider Active S tart: March 25, 2024 End: March 25, 2024 Dr. Joel Damon MD Primary Care Provider Active Start: March 25, 2024 End: March 25, 2024 Team Status: Inactive Member Role Status Dates No Primary Care Physician Referring Provider Active Start: March 25, 2024 End: March 25, 2024 Stephanie Strange PART[employer] PLAN SALES AGENT, PARTY PLAN SALES AGENT-C Attending Provider Active Start: March 25, 2024 End: March 25, 2024 Dr. Joel Damon MD Primary Care Provider Active Start: March 25, 2024 End: March 25, 2024 Team Status: Inactive Member Role Status Dates Patsy Pederson PART[employer] PL[employer] SALES AGENT, PARTY PLAN SALES AGENT-C Attending Provider Active Start: March 28, 2024 End: March 28, 2024 Patsy Pederson PART[employer] PLAN SALES AGENT, PARTY PLAN SALES AGENT-C Referring Provider Active Start: March 28, 2024 End: March 28, 2024 Dr. Joel Damon MD Primary Care Provider Active Start: March 28, 2024 End: March 28, 2024 Team Status: Inactive Member Role Status Dates No Primary Care Physician Referring Provider Active Start: April 01, 2024 End: April 01, 2024 Dr. Joel Damon MD Primary Care Provider Active Start: April 01, 2024 End: April 01, 2024 Patsy Pederson PART[employer] PL[employer] SALES AGENT, PARTY PLAN SALES AGENT-C Attending Provider Active Start: April 01, 2024 End: April 01, 2024 Team Status: Inactive Member Role Status Dates Dr. Joel Damon MD Primary Care Provider Active Start: April 02, 2024 End: April 02, 2024 Dr. Freida Becker MD Attending Provider Active Start: April 02, 2024 End: April 02, 2024 Dr. Freida Becker MD Referring Provider Active Start: April 02, 2024 End: April 02, 2024 Team Status: Inactive Member Role Status Dates Patsy Pederson [employer] PL[employer] SALES AGENT, PARTY PLAN SALES AGENT-C Attending Provider Active Start: April 04, 2024 End: April 04, 2024 Patsy Pederson [employer] PLAN SALES AGENT, PARTY PLAN SALES AGENT-C Referring Provider Active Start: April 04, 2024 End: April 04, 2024 Dr. Joel Damon MD Primary Care Provider Active Start: April 04, 2024 End: April 04, 2024 Team Status: Active Member Role Status Dates Dr. Joel Damon MD Primary Care Provider Active Start: April 06, 2024 Dr. Freida Becker MD Attending Provider Active Start: April 06, 2024 Dr. Freida Becker MD Referring Provider Active Start: April 06, 2024 Dr. Freida Becker MD Other Provider Active Start: April 06, 2024 Team Status: Inactive Member Role Status Dates No Primary Care Physician Referring Provider Active Start: April 08, 2024 End: April 08, 2024 Dr. Freida Becker MD Attending Provider Active Start: April 08, 2024 End: April 08, 2024 Dr. Joel Damon MD Primary Care Provider Active Start: April 08, 2024 End: April 08, 2024 Team Status: Inactive Member Role Status Dates Patsy Pederson [employer] PL[employer] SALES AGENT, [employer] PLAN SALES AGENT-C Attending Provider Active Start: April 11, 2024 End: April 11, 2024 Patsy Pederson [employer] PL[employer] SALES AGENT, [employer] PL[employer] SALES AGENT-C Referring Provider Active Start: April 11, 2024 End: April 11, 2024 Dr. Joel Damon MD Primary Care Provider Active Start: April 11, 2024 End: April 11, 2024 Team Status: Inactive Member Role Status Dates Dr. Joel Damon MD Primary Care Provider Active Start: April 15, 2024 End: April 15, 2024 Dr. Joel Damon MD Referring Provider Active Start: April 15, 2024 End: April 15, 2024 Dr. Verónica Mars DO Attending Provider Activ e Start: April 15, 2024 End: April 15, 2024 Team Status: Inactive Member Role Status Dates Dr. Joel Damon MD Primary Care Provider Active Start: April 18, 2024 End: April 21, 2024 Dr. Verónica Mars DO Admit Provider Active Start: April 18, 2024 End: April 21, 2024 Dr. Verónica Mars DO Attending Provider Activ e Start: April 18, 2024 End: April 21, 2024 Dr. Verónica Mars DO Referring Provider Activ e Start: April 18, 2024 End: April 21, 2024 Team Status: Active Member Role Status Dates Dr. Joel Damon MD Primary Care Provider Active Start: April 18, 2024 Agueda Leung CNM Admit Provider Active Star t: April 18, 2024 Agueda Leung CNM Attending Provider Active Start: April 18, 2024 Agueda Leung CNM Referring Provider Active Start: April 18, 2024 Agueda Leung CNM Other Provider Active Star t: April 18, 2024 Team Status: Active Member Role Status Dates Dr. Joel Damon MD Primary Care Provider Active Start: April 19, 2024 Dr. Verónica Mars DO Admit Provider Active Start: April 19, 2024 Dr. Verónica Mars DO Referring Provider Activ e Start: April 19, 2024 Dr. Verónica Mars DO Other Provider Active Start: April 19, 2024 Agueda Leung CNM Attending Provider Active Start: April 19, 2024 Team Status: Active Member Role Status Dates Dr. Joel Damon MD Primary Care Provider Active Start: April 19, 2024 Dr. Bola Daigle MD Attending Provider Active Start: April 19, 2024 Dr. Verónica Mars DO Referring Provider Activ e Start: April 19, 2024 Team Status: Active Member Role Status Dates Dr. Jeol Damon MD Primary Care Provider Active Start: April 20, 2024 Dr. Verónica Mars DO Admit Provider Active Start: April 20, 2024 Dr. Verónica Mars DO Referring Provider Activ e Start: April 20, 2024 Dr. Verónica Mars DO Other Provider Active Start: April 20, 2024 Agueda Leung CNM Attending Provider Active Start: April 20, 2024 Team Status: Active Member Role Status Dates Dr. Joel Damon MD Primary Care Provider Active Start: April 21, 2024 Dr. Verónica Mars DO Admit Provider Active Start: April 21, 2024 Dr. Verónica Mars DO Referring Provider Activ e Start: April 21, 2024 Dr. Verónica Mars DO Other Provider Active Start: April 21, 2024 Dr. Freida Becker MD Attending Provider Active Start: April 21, 2024 Team Status: Active Member Role Status Dates Dr. Joel Damon MD Primary Care Provider Active Start: April 22, 2024 Dr. Verónica Mars DO Admit Provider Active Start: April 22, 2024 Dr. Verónica Mars DO Referring Provider Activ e Start: April 22, 2024 Dr. Verónica Mars DO Other Provider Active Start: April 22, 2024 Dr. Freida Becker MD Attending Provider Active Start: April 22, 2024 Team Status: Inactive Member Role Status Dates Dr. Joel Damon MD Primary Care Provider Active Start: May 02, 2024 End: May 02, 2024 Dr. Joel Damon MD Referring Provider Active Start: May 02, 2024 End: May 02, 2024 Ana Caldera CNM Attending Provider Active S tart: May 02, 2024 End: May 02, 2024 Team Status: Inactive Member Role Status Dates No Primary Care Physician Referring Provider Active Start: May 21, 2024 End: May 21, 2024 Dr. Emilia Cason MD Attending Provider Active Start: May 21, 2024 End: May 21, 2024 Dr. Joel Damon MD Primary Care Provider Active Start: May 21, 2024 End: May 21, 2024 Team Status: Inactive Member Role Status Dates Dr. Joel Damon MD Primary Care Provider Active Start: June 06, 2024 End: June 06, 2024 Dr. Joel Damon MD Referring Provider Active Start: June 06, 2024 End: June 06, 2024 Agueda Leung CNM Attending Provider Active Start: June 06, 2024 End: June 06, 2024 Team Status: Inactive Member Role Status Dates Dr. Joel Damon MD Primary Care Provider Active Start: June 06, 2024 End: June 06, 2024 Agueda Leung CNM Attending Provider Active Start: June 06, 2024 End: June 06, 2024 Team Status: Inactive Member Role Status Dates Dr. Joel Damon MD Primary Care Provider Active Start: September 16, 2024 End: September 16, 2024 Dr. Freida Becker MD Attending Provider Active Start: September 16, 2024 End: September 16, 2024 Dr. Freida Becker MD Referring Provider Active Start: September 16, 2024 End: September 16, 2024 Goals (unrecognized section and content) Goals may be documented in a n alternate section FOR RECORDS PERTAINING TO PATIENTS WHO ARE [...] BE BASED ON THE PRIMARY CLINICAL RECORDS. [facility] [employer] [facility]. provides no warranty or guarantee of the accuracy or completeness of information in this document.
[2024-12-12] MEDS: Ketorolac 30 MG/ML Syringe IV (02:05)
[2024-12-12] MEDS: 0.9% Normal Saline (1000mL) 1,000 ML 999 ML IV (02:07)
[2024-12-12 03:16] VITALS: BP 123/83; PULSE 78; RESP 18; O2SAT 99
--- NOTE | 2024-12-12 03:16 | EX.ED.DYSGE1 ---
HPI History of Present Illness Chief Complaint: Dizziness Informant: patient Narrative Narrative: Patient is a 29-year-old female with past medical history of anxiety. She states she has been having bouts of dizziness that she describes as a sense of motion. She states the symptoms worsen with changes in position and will improve/resolve at rest. She states she went and saw her family doctor who diagnosed her with vertigo. She states she had labs done just earlier today secondary to this as well. She states that she was told if her symptoms worsen or change that she should come to the ER for evaluation. She states that this evening she has noticed persistent nausea without vomiting and also that her dizziness is now more of a lightheaded sensation versus motion and she reports she has had bouts of diarrhea. She states there is no blood or discoloration to the diarrhea and she denies any recent antibiotic use travel outside the country or livestock exposure. However because of the change in symptoms she presents for evaluation [facility] Medical History Supervision of high-risk History of miscarriage, currently intolerance to labor, delivered, current hospitalization Superficial varicosities Seasonal allergies Pre-conception counseling Anxiety Home Medications ?Medication ?Instructions ?Recorded ?Last Taken ?Type meclizine 12.5 mg tablet 12.5 mg PO TID PRN dizziness 12/12/24 Unknown History ondansetron 4 mg disintegrating 4 mg PO TID PRN nausea and 12/12/24 Unknown Rx tablet vomiting #21 tabs Allergy/AdvReac Type Severity Reaction Status Date / Time coconut Allergy Severe Hives Verified 12/12/24 01:16 Family History Grandfather Heart disease Depression Lung cancer Diabetes Paternal Father Diabetes Heart disease Depression Grandmother Breast cancer Diabetes Paternal Surgical History Status post section History of tonsillectomy Social History adopted: No household members: spouse and children current occupational status: employed current occupation: [employer] pets and animals: Yes (Avoid litterbox) pets and animals: cat(s) history of recent travel: Yes ([place]) out of state: Yes out of country: No sexually active: Yes Smoking Status: Never smoker Smokeless tobacco user: other alcohol intake: current alcohol intake frequency: holidays/special occasions only details: not while substance use type: does not use well-balanced diet: rarely or never caffeine: No eating out: 1-3 times/week during the past year weight has: remained stable what type of physical activity do you participate in: walking frequency: 1-2 times per week duration: 45-60 minutes/day darien/jainism: Pentecostalism seatbelt use: always do you feel safe at home: Yes additional social history: Aiyana [employer] ROS ROS ED Constitutional Constitutional ED: Denies chills or fever(s) Eyes Eyes: Denies blurry vision or change in vision ENT ENT ED: Denies sore throat Cardiovascular Cardiovascular: Denies chest pain, palpitations or racing heartbeat Respiratory/Chest Respiratory/Chest: Denies cough or dyspnea Gastrointestinal Gastrointestinal: Reports diarrhea and nausea; Denies abdominal pain or vomiting Genitourinary Genitourinary ED: Denies dysuria Musculoskeletal Musculoskeletal: Denies myalgias Integumentary Denies rash Neurologic Neurologic: Reports other Details: Positive dizziness ; Denies headache(s) Psychiatric Psychiatric: Reports anxiety Hematologic/Lymphatic Hematologic/Lymphatic: Denies easy bleeding or easy bruising EXAM Physical Exam Const Vital Signs: 12/12/24 01:16 12/12/24 03:16 Temperature 98.2 F Temperature Source Oral Pulse Rate 93 78 Respiratory Rate 20 H 18 Blood Pressure 121/84 H 123/83 H Blood Pressure Mean 96 96 Pulse Ox 97 99 Oxygen Delivery Method Room Air Positive well nourished, well developed and obese General Appearance ED: well developed; Negative for pallor Nutritional Appearance: obese HEENT HEENT Narrative: Normocephalic atraumatic No tongue or lip swelling no oral lesions no airway edema or compromise; no secondary findings in the posterior pharynx to suggest infection Mucous membranes are mildly dry and tacky Eyes PERRL and EOMs intact bilaterally General Eye ED: Negative for scleral icterus Neck supple Resp normal respiratory effort and clear to auscultation bilaterally Cardio regular rate and regular rhythm Rate: other Other Details: Heart is regular rate and rhythm without murmurs rubs or gallop Radial and carotid pulses are equal and symmetric GI non-tender, non-distended and no masses GI Narrative: Abdomen is soft and nondistended with hyperactive bowel sounds. There is mild/faint generalized tenderness to palpation but no voluntary guarding or rigidity or pulsatile mass Auscultation: hyperactive bowel sounds Palpation: soft Extremity normal to inspection Neuro oriented x3, CN's II-XII intact bilaterally and no sensory deficits noted Neuro Narrative: GCS of 15 Cranial nerves II through XII are grossly intact without focal neurologic deficit No pronator drift no dysmetria no truncal ataxia NIH stroke scale score of 0 Patient does have horizontal nystagmus noted and positive Hallpike Jefry exam on left. Sensorium / Orientation: alert Motor Exam: strength 5/5 throughout Psych mental status grossly normal Skin no rashes or lesions noted Skin Narrative: Skin turgor is slightly increased General Skin Exam: Negative for jaundice or pallor MDM MDM MDM Narrative Medical decision making narrative: Patient arrived to ER with stable vitals. She is already been evaluated for her dizziness by her family doctor and has an outpatient labs. Her history and exam does correlate with benign positional paroxysmal vertigo. However as the symptoms have now changed to persistent nausea with diarrhea and more of a lightheaded/near syncopal sensation there is concern that patient has a viral stomach infection such as norovirus or rotavirus leading to dehydration and now causing her secondary symptoms of lightheadedness/near syncope. As the patient had labs done just roughly 12 hours ago I felt no need to repeat them. The outpatient labs were reviewed however and there are no clinically significant findings. She was treated with IV fluids and Zofran. We discussed treatment with Valium for her vertigo but as she is breast-feeding we did not add this as it is not recommended. The same discussion was had regarding Bentyl. After receiving IV hydration and Zofran the patient does report feeling better and she is able to stand and ambulate with a steady gait. Therefore at this time I do not feel there is need for CT scan as her neurologic exam does not show truncal ataxia going against vertebrobasilar insufficiency or posterior circulation ischemia. Also has her labs showed no signs of acute kidney injury clinically significant electrolyte abnormality or acute blood loss anemia there is no need for further intervention. Patient be given symptomatic care and is otherwise safe for discharge History & Record Review Discussion w/independent historian: Patient Additional record(s) reviewed:: Prior labs Discharge Plan Triage Chief Complaint: Dizziness ED Provider: Andes,Suhas Dx/Rx/DC Orders Clinical Impression: BPPV (benign paroxysmal positional vertigo), Nausea, Diarrhea Instructions: ED Vertigo, Unspecified, ED Gastroenteritis, Viral (Adult) Prescriptions: New ondansetron 4 mg tablet,disintegrating 4 mg PO TID PRN (Reason: nausea and vomiting) Qty: 21 0RF No Action meclizine 12.5 mg tablet 12.5 mg PO TID PRN (Reason: dizziness) Stand Alone Forms: ED Work / School Excuse Primary Care Provider: Emilia Cason Referrals: Emilia Cason MD [Primary Care Provider, Internal Medicine] Activity Restrictions/Additional Instructions: Your labs from earlier in the day revealed no clinically significant findings such as electrolyte abnormality low blood volume or kidney damage. Your history and exam is consistent with vertigo in addition to a viral stomach infection. The viral infection is why you have persistent nausea headache and loose stool. The virus will last anywhere from 1 to 10 days with the average being 3 days. Keep yourself well-hydrated and take the Zofran as well as meclizine to help control nausea and dizziness. Return to the ER should you have any further concerns or worsening of symptoms Print Language: New Zealander Disposition Disposition: Home, Self Care Discharge Date/Time: 12/12/24 03:54
[2024-12-12 03:22] VITALS: BP 123/83; PULSE 70; RESP 18; TEMP 36.7; O2SAT 99
== END 2024-12-12 03:54 | disposition home or self-care (01) ==
PROVIDERS: Emergency Provider Emergency Medicine; PCP Internal Medicine; Visit Provider Emergency Medicine
DX: H81.10 Benign paroxysmal vertigo, unspecified ear (principal); R19.7 Diarrhea, unspecified; F41.9 Anxiety disorder, unspecified; R11.0 Nausea
CPT/HCPCS: 96361; 96374; 96375; 99283; A4216; J2405